=== PATIENT | female | born 1945 | race Caucasian/White ===

== ENCOUNTER 2018-03-03 23:53 | Observation (INO) | payer OTHER, SELFPAY ==
[2018-03-03 23:54] VITALS: BP 152/77; PULSE 91; RESP 17; TEMP 38.2; O2SAT 95; BMI 39.0
[2018-03-04] VITALS (8 sets, daily range): BP systolic 106–117; BP diastolic 39–60; PULSE 61–89; RESP 16–20; TEMP 37.3–39.2; O2SAT 94–98; BMI 35.3
--- NOTE | 2018-03-04 00:06 | EKG12_ITS ---
Test Reason : FALL Blood Pressure : / mmHG Vent. Rate : 085 BPM Atrial Rate : 085 BPM P-R Int : 166 ms QRS Dur : 098 ms QT Int : 348 ms P-R-T Axes : -09 095 037 degrees QTc Int : 414 ms Normal sinus rhythm Low voltage QRS Incomplete right bundle branch block Nonspecific T wave abnormality Abnormal ECG Confirmed by IESHA JEAN, YADIRA ([id number]), editor trade journal SUNNY DEE ([id number]) on 03/09/2018 1:44:40 PM Referred By: BABAR Confirmed By:YADIRA JULIAN MD
--- NOTE | 2018-03-04 00:06 | CT_ITS ---
STUDY: CT BRAIN WITHOUT CONTRAST REASON FOR EXAM: Female, 72 years old. Status post fall at home. RADIATION DOSAGE (If Supplied By Facility): CTDIvol = ( 44.99 ) mGy, DLP = ( 762.36 ) mGycm TECHNIQUE: Transaxial CT imaging of the brain was performed without administration of intravenous contrast material. Individualized dose optimization techniques were used for this CT. COMPARISON: 11/08/2013. FINDINGS: Normal soft tissue structures. Normal calvarium. Normal size ventricles and extra-axial spaces for the patient's age. Normal white matter tracts of the cerebral hemispheres. Normal basal ganglia and thalami. Normal brainstem. Normal cerebellum. There is no intracranial hemorrhage. There are no findings of an acute ischemic infarction. Normal visualized paranasal sinuses. CT/Brain/Head without Contrast IMPRESSION: Normal unenhanced CT scan of the brain. Electronically Signed: Sánchez Cazares MD at 1:34 EDT Tel , Service support ,
--- NOTE | 2018-03-04 00:07 | RAD_ITS ---
STUDY: X-RAY - LEFT KNEE REASON FOR EXAM: Female, 72 years old. History of fall. TECHNIQUE: For view(s) of the knee. COMPARISON: None. FINDINGS: There is fracture of the medial aspect of the medial femoral condyle. There is total left knee prosthesis. Normal visualized proximal tibia and fibula. Normal proximal tibiofibular articulation. There is moderate effusion in the suprapatellar joint space. The soft tissue structures are unremarkable. RAD/Knee 4 or More Views IMPRESSION: Fracture of the medial aspect of the medial femoral condyle. Moderate joint effusion. Electronically Signed: Sánchez Cazares MD at 1:41 EDT Tel , Service support ,
--- NOTE | 2018-03-04 00:07 | CT_ITS ---
STUDY: CT CERVICAL SPINE WITHOUT CONTRAST REASON FOR EXAM: Female, 72 years old. Status post fall. RADIATION DOSAGE (If Supplied By Facility): CTDIvol = ( 33.41 ) mGy, DLP = ( 801.74 ) mGycm TECHNIQUE: High resolution transaxial imaging was performed without contrast material. Sagittal and coronal images were reconstructed. Individualized dose optimization techniques were used for this CT. COMPARISON: None FINDINGS: Normal craniovertebral junction. There are degenerative changes of the anterior atlantoaxial articulation. Normal odontoid process. There is straightening of the normal cervical lordosis. There is no demonstrated acute compression fracture deformity. C2-3: Degenerative changes in the left apophyseal joint. No evidence of central spinal canal stenosis. The neural foramina appear to be within normal limits. C3-4: Degenerative changes in the apophyseal joints bilaterally. Posterior lateral degenerative spurs. Narrowing of the right neural foramina and to a lesser extent on the left side. C4-5: Narrowing of the disc space. Minimal anterolisthesis of C4 over C5. Mild narrowing of the neural foramina bilaterally. Borderline central spinal canal. C5-6: Posterior lateral degenerative spurs on the left side associated with narrowing of the left neural foramina. No evidence of central spinal canal stenosis. C6-7: No evidence of central spinal canal or neural foramina stenosis. C7-T1: Normal endplates. Normal disc height and morphology. Normal central canal and intervertebral neuroforamina. There is no prevertebral soft tissue swelling. CT/Spine Cervical without Contras IMPRESSION: Multilevel degenerative changes, as described above. Straight spine which could be due to muscle spasm. No demonstrated acute fracture or subluxation. If symptoms persist, MRI of the cervical spine is recommended. Electronically Signed: Sánchez Cazares MD at 1:33 EDT Tel , Service support ,
--- NOTE | 2018-03-04 00:07 | RAD_ITS ---
STUDY: X-RAY - RIGHT KNEE REASON FOR EXAM: Female, 72 years old. Fall. TECHNIQUE: 4 view(s) of the knee. COMPARISON: None. FINDINGS: There is irregularity of the medial aspect of the medial femoral condyle. Fracture is difficult to entirely exclude. Normal visualized proximal tibia and fibula. Normal proximal tibiofibular articulation. There is total right knee prosthesis. There is small effusion in the suprapatellar joint space. The soft tissue structures are unremarkable. RAD/Knee 4 or More Views IMPRESSION: Questionable nondisplaced fracture of the medial aspect of the medial femoral condyle. Small joint effusion. Electronically Signed: Sánchez Cazares MD at 1:43 EDT Tel , Service support ,
--- NOTE | 2018-03-04 00:07 | RAD_ITS ---
STUDY: X-RAY - LUMBAR SPINE REASON FOR EXAM: Female, 72 years old. Status post fall. TECHNIQUE: 3 view(s) of the lumbar spine were obtained. COMPARISON: None FINDINGS: There is an exaggerated lumbar lordosis. There is mild dextroscoliosis. There is grade 1 retrolisthesis of L3 over L4. There is multilevel endplate spondylosis of the lumbar vertebrae. There is severe disc space narrowing of L3-L4 with vacuum disc. There is no demonstrated fracture. There is no demonstrated spondylolysis of the pars interarticulares. There are bilateral hip prosthesis. RAD/Lumbar Spine 2 or 3 Views IMPRESSION: Degenerative changes of the spine, as detailed above. No demonstrated acute fracture. Electronically Signed: Sánchez Cazares MD at 1:52 EDT Tel , Service support ,
--- NOTE | 2018-03-04 00:07 | RAD_ITS ---
STUDY: X-RAY - THORACIC SPINE REASON FOR EXAM: Female, 72 years old. Status post fall. TECHNIQUE: 3 view(s) of the thoracic spine were obtained. COMPARISON: None. FINDINGS: Normal kyphosis of the thoracic spine. There is no substantial scoliosis. Normal thoracic vertebrae and endplates. The disc spaces are within normal limits. The soft tissue structures are unremarkable. RAD/Thoracic Spine 3 Views IMPRESSION: No demonstrated acute fracture. Electronically Signed: Sánchez Cazares MD at 1:52 EDT Tel , Service support ,
--- NOTE | 2018-03-04 00:08 | RAD_ITS ---
STUDY: X-RAY - PELVIS REASON FOR EXAM: Female, 72 years old. Status post fall. TECHNIQUE: One view of the pelvis was obtained. COMPARISON: 03/31/2013. FINDINGS: There is a non-specific bowel gas pattern. Normal visualized soft tissue structures. Normal bilateral iliac wings, sacroiliac joints and visualized sacrum. Normal visualized bilateral superior and inferior pubic rami. Normal pubic symphysis. Normal ischial tuberosities. There are bilateral hip prosthesis. RAD/Pelvis 1 or 2 Views IMPRESSION: Bilateral hip prosthesis. No demonstrated acute fracture. Electronically Signed: Sánchez Cazares MD at 1:56 EDT Tel , Service support ,
[2018-03-04] MEDS: Acetaminophen 500 MG Tablet 1000 MG PO (00:16)
[2018-03-04] MEDS: Ondansetron 4 MG/2 ML Vial IV (00:17)
[2018-03-04 00:24] LABS: Absolute Neutrophil Count 7.5 X10^3/uL (2.0-7.7); Basophil# 0.02 X10^3/uL; Basophil% 0.2 % (0-1); Hematocrit 37.3 % (37-47); Hemoglobin 12.6 g/dl (12.0-15.0); Lymphocyte % 8.6 % (19-41); Mean Corp Hgb Conc 33.8 g/gl (32-36); Mean Corpuscular Hgb 33.4 pg (27.0-32.0); Mean Corpuscular Volume 98.9 fL (81-99); Mean Platelet Vol. 9.6 fl (6.2-12.0); Monocyte% 10.7 % (0-10); Neutrophil # 7.49 X10^3/uL (2.7-7.7); Neutrophil % 80.3 % (47-70); POSITIVE COUNT NO; POSITIVE DIFFERENTIAL NO; POSITIVE MORPHOLOGY NO; Platelet Count 133 K/mm3 (150-450); RBC Distribution Width CV 12.9 % (11.6-14.6); RBC Distribution Width SD 45.1 fl (35.1-43.9); Red Blood Count 3.77 M/mm3 (4.2-5.4); White Blood Count 9.3 K/mm3 (4.4-11.0)
--- NOTE | 2018-03-04 00:27 | ED.VISSUMM ---
- ER Visit Summary Date of Service: 03/04/18 Chief Complaint: Fall, back pain History of Present Illness: The patient is a 72 F presenting after mechanical fall. Patient was in the bathroom and slipped on a wet floor and fell landing on her buttock. Her states that her knees were in an awkward position. She complains of back pain and bilateral knee pain. Patient also notes that she has not been feeling well today. She has had nausea, generalized weakness, urinary frequency. She has been urinating so frequently that she did not make it to the toilet in time and the bathroom floor was wet from urine. She believes she hit her head but did not lose consciousness. She is on aspirin, no other anticoagulants. She denies chest pain or shortness of breath. Denies abdominal pain. She has nausea with no vomiting. Physical Examination: Vitals are stable. Temperature 100.7. Alert no acute distress. HEENT exam dry mucous membranes Neck is mild diffuse tenderness, c-collar in place Lungs are clear and equal bilaterally. Heart is regular rate and rhythm. Abdomen is soft nontender nondistended. Extremities bilateral anterior knee tenderness, active full range of motion. NVID Skin is warm and dry. No focal neurologic deficit. Remainder of exam is unremarkable. Emergency Department Course and Treatment: Patient is given zofran, tylenol. EKG is sinus rate of 85, unchanged from previous. CBC is normal except for platelets 133. Chemistries show glucose 133, creatinine 1.09. Urinalysis shows 5-10 white cells, 4+ bacteria. Troponin is negative. Lactic acid is normal. Urine culture was sent. She was given Rocephin IV. CT head and neck show no acute process. Thoracic, lumbar spine x-rays show no acute process. Chest x-ray shows no acute process. Pelvis x-ray shows no acute process. Left knee x-ray shows fracture of the medial aspect of the medial femoral condyle. Moderate joint effusion. Right knee x-ray shows questionable nondisplaced fracture of the medial aspect of the medial femoral condyle. Small joint effusion. Discussed with Dr. Weeks. He recommends CT bilateral knee. CT Left knee shows Limited examination due to significant artifacts. Nondisplaced fracture of the medial aspect of the medial femoral condyle extending into the knee prosthesis. Lipohemarthrosis with small pocket of air within the joint space. CT Right knee shows Limited examination due to severe artifacts from total knee prosthesis. Nondisplaced chip fracture of the medial aspect of the distal femur. Discussed with Dr Weeks. Recommends admission to hospitalist, non-weight bearing, and he will see her in consultation. Discussed with the hospitalist for admission. Disposition: Admission Impression: UTI, mechanical fall, left medial femoral condyle fracture, right nondisplaced chip fracture medial distal femur This note was generated with [employer] dictation software. It may contain incorrect words, spelling, and punctuation that were not noted in review of the chart prior to signing ED Disposition - Plan for ED Patient: Chief Complaint: Fall Referrals: Kameron Huerta MD [Primary Care Provider] -
[2018-03-04 00:35] LABS: Mucous, Urine 0 SEEN /hpf (<or=2+); Squamous Epithelial Cells - UA 0 SEEN /hpf (5-10)
[2018-03-04 00:40] LABS: Anion Gap 7 (5-15); BUN 16 mg/dL (7-18); BUN/Creat Ratio 14.7 RATIO (10-20); Calcium,Total 11.7 mg/dL (8.5-10.1); Chloride 106 mmol/L (98-107); Creatinine, Serum 1.09 mg/dL (0.55-1.02); EST Glomerular Filtration Rate 52 mL/min (>60); Est Glom Filt Rate - Afr Amer 64 mL/min (>60); Estimated Creatinine Clearance 40.88 ml/min; Glucose 133 mg/dL (74-106); Potassium 3.8 mmol/L (3.5-5.1); Sodium Level 137 mmol/L (136-145)
[2018-03-04 00:42] LABS: Color, Urine Yellow (Yellow); Glucose, Dipstick Normal (Normal); Ketone-Dipstick 50 mg/dl (Negative); Leukocyte Esterase-Dipstick 500 /ul (Negative); Nitrite-Dipstick Positive (Negative); Occult Blood-Urine 25 /ul (Negative); Protein-Dipstick 30 mg/dl (Negative); Specific Gravity, Urine 1.015 (1.002-1.030); Urine Bilirubin Dipstick Negative (Negative); Urine Clarity Sl. Cloudy (Clear); Urine Urobilinogen Normal (Normal)
[2018-03-04 00:51] LABS: Bacteria 4+ /hpf (None Seen); Red Blood Cells-Urine 0-5 SEEN /hpf (0-5); White Blood Cells 5-10 SEEN /hpf (0-5)
--- NOTE | 2018-03-04 01:00 | RAD_ITS ---
STUDY: X-RAY CHEST REASON FOR EXAM: Female, 72 years old. Status post fall. Shortness of breath. TECHNIQUE: Single AP portable view of the chest. COMPARISON: 04/21/2016. FINDINGS: The lungs are clear and expanded. There is no demonstrated pleural abnormality. The heart is within normal limits in size. Normal mediastinum and katie. Normal visualized pulmonary arteries. Normal visualized aortic arch and descending thoracic aorta. Normal visualized thoracic spine. There are degenerative changes in the right shoulder. There is no demonstrated abnormality of the visualized soft tissue structures of the upper abdomen. RAD/Chest 1 View (Portable) IMPRESSION: No active pulmonary disease. Electronically Signed: Sánchez Cazares MD at 1:54 EDT Tel , Service support ,
[2018-03-04 01:01] LABS: Lactic Acid 0.9 mmol/L (0.4-2.0)
[2018-03-04] MEDS: Ceftriaxone 1 GM/50 ML BAG IV (02:00)
--- NOTE | 2018-03-04 02:05 | CT_ITS ---
STUDY: CT RIGHT KNEE WITHOUT CONTRAST REASON FOR EXAM: Female, 72 years old. Status post fall. RADIATION DOSAGE (If Supplied By Facility): CTDIvol = ( 16.43 ) mGy, DLP = ( 404.47 ) mGycm TECHNIQUE: Transaxial CT imaging of the knee was performed. Coronal and sagittal images were reformatted. COMPARISON: Correlation is made with the plain films of the right knee of March 04, 2018. FINDINGS: The examination is limited due to severe artifacts from total knee prosthesis. There is no demonstrated definite acute fracture. The distal femur however is somewhat obscured by artifacts. There is irregularity of the medial aspect of the medial femoral condyle. There is a nondisplaced fracture in this region best seen on axial images 32-34 series 3. Normal proximal tibiofibular articulation. There is questionable small joint effusion in the suprapatellar joint space. The quadriceps tendon is grossly normal. The patellar tendon is grossly normal. + The soft tissues are unremarkable. CT/Extremity Lower without Contra IMPRESSION: Limited examination due to severe artifacts from total knee prosthesis. Nondisplaced chip fracture of the medial aspect of the distal femur. Electronically Signed: Sánchez Cazares MD at 3:07 EDT Tel , Service support ,
--- NOTE | 2018-03-04 02:13 | CT_ITS ---
STUDY: CT LEFT KNEE WITHOUT CONTRAST REASON FOR EXAM: Female, 72 years old. Status post fall. RADIATION DOSAGE (If Supplied By Facility): CTDIvol = ( 16.67 ) mGy, DLP = ( 418.86 ) mGycm TECHNIQUE: Transaxial CT imaging of the knee was performed. Coronal and sagittal images were reformatted. COMPARISON: None. FINDINGS: The examination is markedly limited due to significant artifacts from total knee prosthesis and due to motion. There is however small comminuted fracture of the posterior aspect of the medial femoral condyle extending to the medial aspect of the knee prosthesis. Accurate evaluation of the fracture is difficult due to artifacts. The proximal tibia and fibula are otherwise appears to be intact. Normal proximal tibiofibular articulation. There is moderate to large lipohemarthrosis. There is small pocket of air within the joint space. The quadriceps and patellar tendons difficult to accurately evaluate. The soft tissues are unremarkable. CT/Extremity Lower without Contra IMPRESSION: Limited examination due to significant artifacts. Nondisplaced fracture of the medial aspect of the medial femoral condyle extending into the knee prosthesis. Lipohemarthrosis with small pocket of air within the joint space. Electronically Signed: Sánchez Cazares MD at 3:25 EDT Tel , Service support ,
--- NOTE | 2018-03-04 04:15 | PCM.HP.STD ---
Problem List (1) Mechanical fall Status: Acute (2) UTI (urinary tract infection) Status: Acute (3) Fracture of both knees Status: Acute History of Present Illness Date of Admission: 03/04/18 Chief Complaint: Slip and fall. The patient is a 72 year old F with multiple comorbidities as listed above including hypertension, rheumatoid arthritis, dyslipidemia was brought in by ambulance after she fell in the bathroom. She said she has been having increased frequency and urgency for last 2-3 days. Because her bathroom was what she slipped and fall on her buttocks and her both knees were twisted. She complained of back pain and bilateral knee pain. She denies vomiting, loss of consciousness, dizziness or headache full nauseated. EMS vitals were acceptable. In ED, EKG shows normal sinus rhythm at 85 bpm. She had multiple x-rays and CT scan done including CT head, CT C-spine, thoracic and lumbar spine, pelvis x-ray and chest x-ray does not show acute change. X-ray of left knee shows fracture of the medial aspect of medial femoral condyle with moderate joint effusion. Furthermore, she had CT of both knees and reported nondisplaced fracture of medial aspect of medial femoral condyle extending into the knee prosthesis. Right knee CT is reported as nondisplaced chip fracture of medial aspect of distal femur. She looks very dehydrated. Basic blood work in the ER is remarkable for platelet count 433,000. Creatinine 1.09. Calcium 11.7 and UA positive of pyuria, LE and nitrite. Past Medical History Past Medical History (Chronic Problems): Chronic Problems Nephrolithiasis (Chronic) Anxiety (Chronic) Hyperlipidemia (Chronic) Hypertension (Chronic) Rheumatoid arthritis (Chronic) Allergies Sulfa (Sulfonamide Antibiotics) Allergy (Verified 03/03/18 23:56) Other DOES NOT KNOW REACTION, HAPPENED WHEN 3 YRS OLD codeine Adverse Reaction (Verified 03/03/18 23:56) Nausea tramadol Adverse Reaction (Verified 03/03/18 23:56) Nausea Bee Stings Allergy (Uncoded 03/03/18 23:56) Anaphylaxis Home Medications: Ambulatory Orders Medication Instructions Recorded Atorvastatin Calcium [Lipitor] 10 mg PO DAILY 11/08/13 Folic Acid 2 mg PO DAILY 11/08/13 Losartan Potassium 50 mg PO DAILY 11/08/13 Prednisone 10 mg PO DAILY PRN 11/08/13 Adalimumab [Humira] 40 mg SQ Q14D 04/09/16 Escitalopram Oxalate [Lexapro] 20 mg PO DAILY 03/09/17 Meloxicam [Mobic] 7.5 mg PO DAILY 03/09/17 [place]-3S/Dha/Epa/Fish Oil [Fish 1 each PO DAILY 03/09/17 Oil 1,200 mg Softgel] Acetaminophen [Tylenol] 1,000 mg PO Q8 PRN 03/04/18 Aspirin [Aspirin, Baby] 81 mg PO DAILY@0800 03/04/18 Hydrocodone Bitart/Apap 5-325 1 tablet PO BID 03/04/18 [[place] 5MG-325MG] Surgical History: - - Tonsillectomy, right total knee replacement,bone removed from.left hip. Smoking Status: Never smoker - *Family History Maternal History Items: - - mother with lung cancer. Review of Systems Constitutional: Denies: Chills, Fever, Weight Change HEENT: Denies: Head Aches, Sinus Congestion, Sinus Drainage Cardiovascular: Denies: Chest Pain, Palpitations Respiratory: Denies: Cough, Shortness of breath at rest, Sputum production Gastrointestinal: Denies: Abdominal Pain, Nausea, Vomiting Genitourinary: Reports: Dysuria, Frequency, Incontinence, Urgency Musculoskeletal: Reports: Joint Pain, Joint stiffness, Joint Tenderness, Muscle pain Skin: Denies: Rash, Wounds Neurological: Denies: Numbness, Tingling, Focal weakness Psychiatric: Denies: Anxiety, Depression, Homicidal Ideations, Suicidal Ideations Hematologic/ Lymphatic: Denies: Easy Bruising, Easy Bleeding VTE Information - Inpt Only VTE Present on Admission: No VTE Mechan Device Prophylaxis: SCD's VTE Pharm Prophylaxis ordered?: Yes Patient Problems: Active and Suspected Problems Mechanical fall (Acute) UTI (urinary tract infection) (Acute) Fracture of both knees (Acute) - Physical Exam General: Alert, Oriented x3, Cooperative HEENT: Atraumatic, PERRLA, EOMI, Normocephalic Oral: Ulcerations Present Neck: Supple, No JVD, Negative Carotid Bruits Lungs: Clear to auscultation, Normal air movement Cardiovascular: Regular rate, Regular Rhythm, Normal S1, Normal S2, No murmurs Abdomen: Bowel Sounds Present, Soft, Non Tender, Non-Distended Extremities: Capillary Refill Less than 3 Seconds, Edema Skin: No rashes, No breakdown Musculoskeletal: Arthritic Changes, Tenderness - Tenderness present over both knees, predominantly over the medial aspect of left femoral condyle Neurological: Cranial nerves II-XII grossly intact Psych/Mental Status: Normal Affect, Appropriate Vital Signs Temp Pulse Resp BP Pulse Ox 100.7 F H 73 20 H 117/53 L 94 03/03/18 23:54 03/04/18 02:10 03/04/18 02:10 03/04/18 02:10 03/04/18 02:10 Oxygen Delivery Method Room Air Weight: 227 lb 8.273 oz Body Mass Index (BMI) 39.0 Finger Stick Blood Glucose 119 Laboratory Tests Past 24 Hrs 03/03/18 03/04/18 03/04/18 21:41 00:12 00:12 WBC 9.3 RBC 3.77 L Hgb 12.6 Hct 37.3 MCV 98.9 MCH 33.4 H MCHC 33.8 RDW 12.9 RDW Differential 45.1 H Plt Count 133 L MPV 9.6 Immature Gran % (Auto) 0.200 Neut % (Auto) 80.3 H Lymph % (Auto) 8.6 L [place] % (Auto) 10.7 H Eos % (Auto) 0.0 Baso % (Auto) 0.2 Absolute Neuts (auto) 7.5 Absolute Lymphs (auto) 0.80 L Total Counted Not Reportable Sodium 137 Potassium 3.8 Chloride 106 Carbon Dioxide 24.0 Anion Gap 7 BUN 16 Creatinine 1.09 H Estim Creat Clear Calc 40.88 Est GFR (MDRD) Af Amer 64 Est GFR (MDRD) Non-Af 52 L BUN/Creatinine Ratio 14.7 Glucose 133 H Lactic Acid 0.9 Calcium 11.7 H Troponin I < 0.015 Urine Color Urine Clarity Urine pH Ur Specific [place] Urine Protein Urine Glucose (UA) Urine Ketones Urine Occult Blood Urine Nitrite Urine Bilirubin Urine Urobilinogen Ur Leukocyte Esterase Urine RBC Urine WBC Ur Squamous Epith Cells Urine Bacteria Urine Mucus 03/04/18 00:30 WBC RBC Hgb Hct MCV MCH MCHC RDW RDW Differential Plt Count MPV Immature Gran % (Auto) Neut % (Auto) Lymph % (Auto) [place] % (Auto) Eos % (Auto) Baso % (Auto) Absolute Neuts (auto) Absolute Lymphs (auto) Total Counted Sodium Potassium Chloride Carbon Dioxide Anion Gap BUN Creatinine Estim Creat Clear Calc Est GFR (MDRD) Af Amer Est GFR (MDRD) Non-Af BUN/Creatinine Ratio Glucose Lactic Acid Calcium Troponin I Urine Color Yellow Urine Clarity Sl. Cloudy Urine pH 7.0 Ur Specific [place] 1.015 Urine Protein 30 H Urine Glucose (UA) Normal Urine Ketones 50 H Urine Occult Blood 25 H Urine Nitrite Positive H Urine Bilirubin Negative Urine Urobilinogen Normal Ur Leukocyte Esterase 500 H Urine RBC 0-5 SEEN Urine WBC 5-10 SEEN Ur Squamous Epith Cells 0 SEEN Urine Bacteria 4+ Urine Mucus 0 SEEN Assessment/Plan Active and Suspected Problems Mechanical fall (Acute) UTI (urinary tract infection) (Acute) Fracture of both knees (Acute) The patient is a 72 year old F with multiple comorbidities as listed above including hypertension, rheumatoid arthritis, dyslipidemia was brought in by ambulance after she fell in the bathroom. She said she has been having increased frequency and urgency for last 2-3 days. Because her bathroom was what she slipped and fall on her buttocks and her both knees were twisted. She complained of back pain and bilateral knee pain. She denies vomiting, loss of consciousness, dizziness or headache full nauseated. EMS vitals were acceptable. In ED, EKG shows normal sinus rhythm at 85 bpm. She had multiple x-rays and CT scan done including CT head, CT C-spine, thoracic and lumbar spine, pelvis x-ray and chest x-ray does not show acute change. X-ray of left knee shows fracture of the medial aspect of medial femoral condyle with moderate joint effusion. Furthermore, she had CT of both knees and reported nondisplaced fracture of medial aspect of medial femoral condyle extending into the knee prosthesis. Right knee CT is reported as nondisplaced chip fracture of medial aspect of distal femur. She looks very dehydrated. Basic blood work in the ER is remarkable for platelet count 433,000. Creatinine 1.09. Calcium 11.7 and UA positive of pyuria, LE and nitrite. 1. Mechanical, complicated pathological fracture of both knees with osteoporosis and rheumatoid arthritis status post bilateral TKR: The patient is being admitted on a regular [facility] floor. CT scan of left knee is reported as nondisplaced fracture of the medial aspect of the medial femoral condyle extending into the knee prosthesis. Reported as CT scan of right knee nondisplaced chip fracture of the medial aspect of the distal femur. The patient also has bilateral knee replacement and bilateral hip prosthesis. Orthopedic surgeon is consulted. Pain control. Muscle relaxant. PT and OT ordered. 2. UTI: Patient is started on IV ceftriaxone. Follow urine culture. 3. Slip and fall with resulting fracture as mentioned above 4. CKD stage III with estimated GFR about 50 mL/min. Currently patient is dehydrated. IV fluid normal saline ordered. 5. Other comorbidities include anemia of chronic disease, nephrolithiasis, hypertension, dyslipidemia, anxiety and rheumatoid arthritis: Blood pressure is controlled. Home medication reconciliation done. Laboratory Results 03/03/18 21:41: Lactic Acid 0.9 03/04/18 00:12: WBC 9.3, RBC 3.77 L, Hgb 12.6, Hct 37.3, MCV 98.9, MCH 33.4 H, MCHC 33.8, RDW 12.9, RDW Differential 45.1 H, Plt Count 133 L, MPV 9.6, Immature Gran % (Auto) 0.200, Neut % (Auto) 80.3 H, Lymph % (Auto) 8.6 L, [place] % (Auto) 10.7 H, Eos % (Auto) 0.0, Baso % (Auto) 0.2, Absolute Neuts (auto) 7.5, Absolute Lymphs (auto) 0.80 L, Total Counted Not Reportable 03/04/18 00:12: Sodium 137, Potassium 3.8, Chloride 106, Carbon Dioxide 24.0, Anion Gap 7, BUN 16, Creatinine 1.09 H, Estim Creat Clear Calc 40.88, Est GFR (MDRD) Af Amer 64, Est GFR (MDRD) Non-Af 52 L, BUN/Creatinine Ratio 14.7, Glucose 133 H, Calcium 11.7 H, Troponin I < 0.015 03/04/18 00:30: Urine Color Yellow, Urine Clarity Sl. Cloudy, Urine pH 7.0, Ur Specific [place] 1.015, Urine Protein 30 H, Urine Glucose (UA) Normal, Urine Ketones 50 H, Urine Occult Blood 25 H, Urine Nitrite Positive H, Urine Bilirubin Negative, Urine Urobilinogen Normal, Ur Leukocyte Esterase 500 H, Urine RBC 0-5 SEEN, Urine WBC 5-10 SEEN, Ur Squamous Epith Cells 0 SEEN, Urine Bacteria 4+, Urine Mucus 0 SEEN Clinical Impression(s) from Imaging Studies Brain CT 03/04/18 00:06 IMPRESSION: Normal unenhanced CT scan of the brain. Electronically Signed: Sánchez Cazares MD at 1:34 EDT Tel , Service support , Cervical Spine CT 03/04/18 00:07 IMPRESSION: Multilevel degenerative changes, as described above. Straight spine which could be due to muscle spasm. No demonstrated acute fracture or subluxation. If symptoms persist, MRI of the cervical spine is recommended. Electronically Signed: Sánchez Cazares MD at 1:33 EDT Tel , Service support , Knee X-Ray 03/04/18 00:07 IMPRESSION: Questionable nondisplaced fracture of the medial aspect of the medial femoral condyle. Small joint effusion. Electronically Signed: Sánchez Cazares MD at 1:43 EDT Tel , Service support , Knee X-Ray 03/04/18 00:07 IMPRESSION: Fracture of the medial aspect of the medial femoral condyle. Moderate joint effusion. Electronically Signed: Sánchez Cazares MD at 1:41 EDT Tel , Service support , Lumbar Spine X-Ray 03/04/18 00:07 IMPRESSION: Degenerative changes of the spine, as detailed above. No demonstrated acute fracture. Electronically Signed: Sánchez Cazares MD at 1:52 EDT Tel , Service support , Thoracic Spine X-Ray 03/04/18 00:07 IMPRESSION: No demonstrated acute fracture. Electronically Signed: Sánchez Cazares MD at 1:52 EDT Tel , Service support , Pelvis X-Ray 03/04/18 00:08 IMPRESSION: Bilateral hip prosthesis. No demonstrated acute fracture. Electronically Signed: Sánchez Cazares MD at 1:56 EDT Tel , Service support , Chest X-Ray 03/04/18 01:00 IMPRESSION: No active pulmonary disease. Electronically Signed: Sánchez Cazares MD at 1:54 EDT Tel , Service support , Lower Extremity CT 03/04/18 02:05 IMPRESSION: Limited examination due to severe artifacts from total knee prosthesis. Nondisplaced chip fracture of the medial aspect of the distal femur. Electronically Signed: Sánchez Cazares MD at 3:07 EDT Tel , Service support , Lower Extremity CT 03/04/18 02:13 IMPRESSION: Limited examination due to significant artifacts. Nondisplaced fracture of the medial aspect of the medial femoral condyle extending into the knee prosthesis. Lipohemarthrosis with small pocket of air within the joint space. Electronically Signed: Sánchez Cazares MD at 3:25 EDT Tel , Service support , Code Visit Inpatient E&M: [id number] Init Hosp L3
--- NOTE | 2018-03-04 04:25 | HP.PCM_ITS ---
Problem List (1) Mechanical fall Status: Acute (2) UTI (urinary tract infection) Status: Acute (3) Fracture of both knees Status: Acute History of Present Illness Date of Admission: 03/04/18 Chief Complaint: Slip and fall. The patient is a 72 year old F with multiple comorbidities as listed above including hypertension, rheumatoid arthritis, dyslipidemia was brought in by ambulance after she fell in the bathroom. She said she has been having increased frequency and urgency for last 2-3 days. Because her bathroom was what she slipped and fall on her buttocks and her both knees were twisted. She complained of back pain and bilateral knee pain. She denies vomiting, loss of consciousness, dizziness or headache full nauseated. EMS vitals were acceptable. In ED, EKG shows normal sinus rhythm at 85 bpm. She had multiple x-rays and CT scan done including CT head, CT C-spine, thoracic and lumbar spine, pelvis x- ray and chest x-ray does not show acute change. X-ray of left knee shows fracture of the medial aspect of medial femoral condyle with moderate joint effusion. Furthermore, she had CT of both knees and reported nondisplaced fracture of medial aspect of medial femoral condyle extending into the knee prosthesis. Right knee CT is reported as nondisplaced chip fracture of medial aspect of distal femur. She looks very dehydrated. Basic blood work in the ER is remarkable for platelet count 433,000. Creatinine 1.09. Calcium 11.7 and UA positive of pyuria, LE and nitrite. Past Medical History Past Medical History (Chronic Problems): Chronic Problems Nephrolithiasis (Chronic) Anxiety (Chronic) Hyperlipidemia (Chronic) Hypertension (Chronic) Rheumatoid arthritis (Chronic) Allergies Sulfa (Sulfonamide Antibiotics) Allergy (Verified 03/03/18 23:56) Other DOES NOT KNOW REACTION, HAPPENED WHEN 3 YRS OLD codeine Adverse Reaction (Verified 03/03/18 23:56) Nausea tramadol Adverse Reaction (Verified 03/03/18 23:56) Nausea Bee Stings Allergy (Uncoded 03/03/18 23:56) Anaphylaxis Home Medications: Ambulatory Orders Medication Instructions Recorded Atorvastatin Calcium [Lipitor] 10 mg PO DAILY 11/08/13 Folic Acid 2 mg PO DAILY 11/08/13 Losartan Potassium 50 mg PO DAILY 11/08/13 Prednisone 10 mg PO DAILY PRN 11/08/13 Adalimumab [Humira] 40 mg SQ Q14D 04/09/16 Escitalopram Oxalate [Lexapro] 20 mg PO DAILY 03/09/17 Meloxicam [Mobic] 7.5 mg PO DAILY 03/09/17 [place]-3S/Dha/Epa/Fish Oil [Fish 1 each PO DAILY 03/09/17 Oil 1,200 mg Softgel] Acetaminophen [Tylenol] 1,000 mg PO Q8 PRN 03/04/18 Aspirin [Aspirin, Baby] 81 mg PO DAILY@0800 03/04/18 Hydrocodone Bitart/Apap 5-325 1 tablet PO BID 03/04/18 [[place] 5MG-325MG] Surgical History: - - Tonsillectomy, right total knee replacement,bone removed from.left hip. Smoking Status: Never smoker - *Family History Maternal History Items: - - mother with lung cancer. Review of Systems Constitutional: Denies: Chills, Fever, Weight Change HEENT: Denies: Head Aches, Sinus Congestion, Sinus Drainage Cardiovascular: Denies: Chest Pain, Palpitations Respiratory: Denies: Cough, Shortness of breath at rest, Sputum production Gastrointestinal: Denies: Abdominal Pain, Nausea, Vomiting Genitourinary: Reports: Dysuria, Frequency, Incontinence, Urgency Musculoskeletal: Reports: Joint Pain, Joint stiffness, Joint Tenderness, Muscle pain Skin: Denies: Rash, Wounds Neurological: Denies: Numbness, Tingling, Focal weakness Psychiatric: Denies: Anxiety, Depression, Homicidal Ideations, Suicidal Ideations Hematologic/ Lymphatic: Denies: Easy Bruising, Easy Bleeding VTE Information - Inpt Only VTE Present on Admission: No VTE Mechan Device Prophylaxis: SCD's VTE Pharm Prophylaxis ordered?: Yes Patient Problems: Active and Suspected Problems Mechanical fall (Acute) UTI (urinary tract infection) (Acute) Fracture of both knees (Acute) - Physical Exam General: Alert, Oriented x3, Cooperative HEENT: Atraumatic, PERRLA, EOMI, Normocephalic Oral: Ulcerations Present Neck: Supple, No JVD, Negative Carotid Bruits Lungs: Clear to auscultation, Normal air movement Cardiovascular: Regular rate, Regular Rhythm, Normal S1, Normal S2, No murmurs Abdomen: Bowel Sounds Present, Soft, Non Tender, Non-Distended Extremities: Capillary Refill Less than 3 Seconds, Edema Skin: No rashes, No breakdown Musculoskeletal: Arthritic Changes, Tenderness - Tenderness present over both knees, predominantly over the medial aspect of left femoral condyle Neurological: Cranial nerves II-XII grossly intact Psych/Mental Status: Normal Affect, Appropriate Vital Signs Temp Pulse Resp BP Pulse Ox 100.7 F H 73 20 H 117/53 L 94 03/03/18 23:54 03/04/18 02:10 03/04/18 02:10 03/04/18 02:10 03/04/18 02:10 Oxygen Delivery Method Room Air Weight: 227 lb 8.273 oz Body Mass Index (BMI) 39.0 Finger Stick Blood Glucose 119 Laboratory Tests Past 24 Hrs 03/03/18 03/04/18 03/04/18 21:41 00:12 00:12 WBC 9.3 RBC 3.77 L Hgb 12.6 Hct 37.3 MCV 98.9 MCH 33.4 H MCHC 33.8 RDW 12.9 RDW Differential 45.1 H Plt Count 133 L MPV 9.6 Immature Gran % (Auto) 0.200 Neut % (Auto) 80.3 H Lymph % (Auto) 8.6 L [place] % (Auto) 10.7 H Eos % (Auto) 0.0 Baso % (Auto) 0.2 Absolute Neuts (auto) 7.5 Absolute Lymphs (auto) 0.80 L Total Counted Not Reportable Sodium 137 Potassium 3.8 Chloride 106 Carbon Dioxide 24.0 Anion Gap 7 BUN 16 Creatinine 1.09 H Estim Creat Clear Calc 40.88 Est GFR (MDRD) Af Amer 64 Est GFR (MDRD) Non-Af 52 L BUN/Creatinine Ratio 14.7 Glucose 133 H Lactic Acid 0.9 Calcium 11.7 H Troponin I < 0.015 Urine Color Urine Clarity Urine pH Ur Specific [place] Urine Protein Urine Glucose (UA) Urine Ketones Urine Occult Blood Urine Nitrite Urine Bilirubin Urine Urobilinogen Ur Leukocyte Esterase Urine RBC Urine WBC Ur Squamous Epith Cells Urine Bacteria Urine Mucus 03/04/18 00:30 WBC RBC Hgb Hct MCV MCH MCHC RDW RDW Differential Plt Count MPV Immature Gran % (Auto) Neut % (Auto) Lymph % (Auto) [place] % (Auto) Eos % (Auto) Baso % (Auto) Absolute Neuts (auto) Absolute Lymphs (auto) Total Counted Sodium Potassium Chloride Carbon Dioxide Anion Gap BUN Creatinine Estim Creat Clear Calc Est GFR (MDRD) Af Amer Est GFR (MDRD) Non-Af BUN/Creatinine Ratio Glucose Lactic Acid Calcium Troponin I Urine Color Yellow Urine Clarity Sl. Cloudy Urine pH 7.0 Ur Specific [place] 1.015 Urine Protein 30 H Urine Glucose (UA) Normal Urine Ketones 50 H Urine Occult Blood 25 H Urine Nitrite Positive H Urine Bilirubin Negative Urine Urobilinogen Normal Ur Leukocyte Esterase 500 H Urine RBC 0-5 SEEN Urine WBC 5-10 SEEN Ur Squamous Epith Cells 0 SEEN Urine Bacteria 4+ Urine Mucus 0 SEEN Assessment/Plan Active and Suspected Problems Mechanical fall (Acute) UTI (urinary tract infection) (Acute) Fracture of both knees (Acute) The patient is a 72 year old F with multiple comorbidities as listed above including hypertension, rheumatoid arthritis, dyslipidemia was brought in by ambulance after she fell in the bathroom. She said she has been having increased frequency and urgency for last 2-3 days. Because her bathroom was what she slipped and fall on her buttocks and her both knees were twisted. She complained of back pain and bilateral knee pain. She denies vomiting, loss of consciousness, dizziness or headache full nauseated. EMS vitals were acceptable. In ED, EKG shows normal sinus rhythm at 85 bpm. She had multiple x-rays and CT scan done including CT head, CT C-spine, thoracic and lumbar spine, pelvis x- ray and chest x-ray does not show acute change. X-ray of left knee shows fracture of the medial aspect of medial femoral condyle with moderate joint effusion. Furthermore, she had CT of both knees and reported nondisplaced fracture of medial aspect of medial femoral condyle extending into the knee prosthesis. Right knee CT is reported as nondisplaced chip fracture of medial aspect of distal femur. She looks very dehydrated. Basic blood work in the ER is remarkable for platelet count 433,000. Creatinine 1.09. Calcium 11.7 and UA positive of pyuria, LE and nitrite. 1. Mechanical, complicated pathological fracture of both knees with osteoporosis and rheumatoid arthritis status post bilateral TKR: The patient is being admitted on a regular MedSur floor. CT scan of left knee is reported as nondisplaced fracture of the medial aspect of the medial femoral condyle extending into the knee prosthesis. Reported as CT scan of right knee nondisplaced chip fracture of the medial aspect of the distal femur. The patient also has bilateral knee replacement and bilateral hip prosthesis. Orthopedic surgeon is consulted. Pain control. Muscle relaxant. PT and OT ordered. 2. UTI: Patient is started on IV ceftriaxone. Follow urine culture. 3. Slip and fall with resulting fracture as mentioned above 4. CKD stage III with estimated GFR about 50 mL/min. Currently patient is dehydrated. IV fluid normal saline ordered. 5. Other comorbidities include anemia of chronic disease, nephrolithiasis, hypertension, dyslipidemia, anxiety and rheumatoid arthritis: Blood pressure is controlled. Home medication reconciliation done. Laboratory Results 03/03/18 21:41: Lactic Acid 0.9 03/04/18 00:12: WBC 9.3, RBC 3.77 L, Hgb 12.6, Hct 37.3, MCV 98.9, MCH 33.4 H, MCHC 33.8, RDW 12.9, RDW Differential 45.1 H, Plt Count 133 L, MPV 9.6, Immature Gran % (Auto) 0.200, Neut % (Auto) 80.3 H, Lymph % (Auto) 8.6 L, [place] % (Auto) 10.7 H, Eos % (Auto) 0.0, Baso % (Auto) 0.2, Absolute Neuts (auto) 7.5 , Absolute Lymphs (auto) 0.80 L, Total Counted Not Reportable 03/04/18 00:12: Sodium 137, Potassium 3.8, Chloride 106, Carbon Dioxide 24.0, Anion Gap 7, BUN 16, Creatinine 1.09 H, Estim Creat Clear Calc 40.88, Est GFR ( MDRD) Af Amer 64, Est GFR (MDRD) Non-Af 52 L, BUN/Creatinine Ratio 14.7, Glucose 133 H, Calcium 11.7 H, Troponin I < 0.015 03/04/18 00:30: Urine Color Yellow, Urine Clarity Sl. Cloudy, Urine pH 7.0, Ur Specific [place] 1.015, Urine Protein 30 H, Urine Glucose (UA) Normal, Urine Ketones 50 H, Urine Occult Blood 25 H, Urine Nitrite Positive H, Urine Bilirubin Negative, Urine Urobilinogen Normal, Ur Leukocyte Esterase 500 H, Urine RBC 0-5 SEEN, Urine WBC 5-10 SEEN, Ur Squamous Epith Cells 0 SEEN, Urine Bacteria 4+, Urine Mucus 0 SEEN Clinical Impression(s) from Imaging Studies Brain CT 03/04/18 00:06 IMPRESSION: Normal unenhanced CT scan of the brain. Electronically Signed: Sánchez Cazares MD at 1:34 EDT Tel , Service support , Cervical Spine CT 03/04/18 00:07 IMPRESSION: Multilevel degenerative changes, as described above. Straight spine which could be due to muscle spasm. No demonstrated acute fracture or subluxation. If symptoms persist, MRI of the cervical spine is recommended. Electronically Signed: Sánchez Cazares MD at 1:33 EDT Tel , Service support , Knee X-Ray 03/04/18 00:07 IMPRESSION: Questionable nondisplaced fracture of the medial aspect of the medial femoral condyle. Small joint effusion. Electronically Signed: Sánchez Cazares MD at 1:43 EDT Tel , Service support , Knee X-Ray 03/04/18 00:07 IMPRESSION: Fracture of the medial aspect of the medial femoral condyle. Moderate joint effusion. Electronically Signed: Sánchez Cazares MD at 1:41 EDT Tel , Service support , Lumbar Spine X-Ray 03/04/18 00:07 IMPRESSION: Degenerative changes of the spine, as detailed above. No demonstrated acute fracture. Electronically Signed: Sánchez Cazares MD at 1:52 EDT Tel , Service support , Thoracic Spine X-Ray 03/04/18 00:07 IMPRESSION: No demonstrated acute fracture. Electronically Signed: Sánchez Cazares MD at 1:52 EDT Tel , Service support , Pelvis X-Ray 03/04/18 00:08 IMPRESSION: Bilateral hip prosthesis. No demonstrated acute fracture. Electronically Signed: Sánchez Cazares MD at 1:56 EDT Tel , Service support , Chest X-Ray 03/04/18 01:00 IMPRESSION: No active pulmonary disease. Electronically Signed: Sánchez Cazares MD at 1:54 EDT Tel , Service support , Lower Extremity CT 03/04/18 02:05 IMPRESSION: Limited examination due to severe artifacts from total knee prosthesis. Nondisplaced chip fracture of the medial aspect of the distal femur. Electronically Signed: Sánchez Cazares MD at 3:07 EDT Tel , Service support , Lower Extremity CT 03/04/18 02:13 IMPRESSION: Limited examination due to significant artifacts. Nondisplaced fracture of the medial aspect of the medial femoral condyle extending into the knee prosthesis. Lipohemarthrosis with small pocket of air within the joint space. Electronically Signed: Sánchez Cazares MD at 3:25 EDT Tel , Service support , Code Visit Inpatient E&M: 40586 Init Hosp L3
[2018-03-04] MEDS: Acetaminophen 325 MG Tablet 650 MG PO (07:27)
[2018-03-04] MEDS: Aspirin 81 MG TAB.CHEW PO (07:31)
[2018-03-04] MEDS: Folic Acid 1 MG Tablet 2 MG PO (07:32)
[2018-03-04] MEDS: 0.9% Normal Saline 1,000 ML 100 ML IV (07:42)
[2018-03-04 09:12] LABS: Hemoglobin A1c 5.6 % (4.2-6.3)
[2018-03-04] MEDS: Famotidine 20 MG Tablet PO (09:58)
[2018-03-04] MEDS: Heparin Injection (Vial) 5,000 UNIT/ML VIAL 5000 UNIT SC (09:58)
[2018-03-04] MEDS: Escitalopram Oxalate 20 MG Tablet PO (09:58)
[2018-03-04] MEDS: Losartan Potassium 50 MG Tablet PO (09:58)
--- NOTE | 2018-03-04 11:11 | CASEMGMT ---
Addendum entered by Florencia Farfan 03/04/18 11:40: Pt had PT/OT, they agree that placement would be appropriate for pt. SW spoke w/pt again, gave pt list of SNF's that take her insurance. Pt would like to go to TCU, SW called, TCU has a bed and will start precert. SW let pt know, and explained will let her know as soon as this SW knows if we get precert for TCU. Pt states understanding. SW will continue to follow. DIANA Gee, BLOOD BANK CALENDAR CONTROL CLERK Original Note: See assessment. SW spoke w/pt in room in regard to discharge plan. After prior surgeries, pt has been able to return home. However, pt states her is tentative with her returning home and may want pt to go somewhere for rehab. Pt has not had PT/OT yet, and an ortho consult is still pending. SW explained will look up on her insurance website to see what SNF's are in network and let her know. SW did look up the information, went back to speak w/pt however she is now sleeping. SW will check back w/pt a little later. PT/OT may be going in shortly to see pt. DIANA Gee, BLOOD BANK CALENDAR CONTROL CLERK
[2018-03-04] MEDS: oxyCODONE 5 MG Tablet PO (12:39)
--- NOTE | 2018-03-04 13:31 | PCM.CONS.GEN ---
Reason for Consult Date of Consultation: 03/04/18 Reason for Consultation: Bilateral knee pain after fall. Requested by History of Present Illness: The patient is a 72 year old F with history of multiple medical comorbidities. Patient has bilateral hip replacements and bilateral knee replacements. She fell in the bathroom yesterday and into the hospital with bilateral knee pain and back pain. Currently she reports no back pain. She is somewhat sleepy during our encounter. She reports bilateral medial knee pain. Worse with weightbearing better with immobilization and pain medications. Patient states is 8 out of 10 with weightbearing. It is a dull achy pain on the inside of her knee. She has associated ecchymosis. No associated numbness or tingling. No fevers chills or night sweats. She has been diagnosed with a UTI and is being treated accordingly. Plan is for her to be discharged to a residential facility/TCU here at the hospital Past Medical History Past Medical History (Chronic Problems): Chronic Problems Nephrolithiasis (Chronic) Anxiety (Chronic) Hyperlipidemia (Chronic) Hypertension (Chronic) Rheumatoid arthritis (Chronic) Allergies Sulfa (Sulfonamide Antibiotics) Allergy (Verified 03/03/18 23:56) Other DOES NOT KNOW REACTION, HAPPENED WHEN 3 YRS OLD codeine Adverse Reaction (Verified 03/03/18 23:56) Nausea tramadol Adverse Reaction (Verified 03/03/18 23:56) Nausea Bee Stings Allergy (Uncoded 03/03/18 23:56) Anaphylaxis Home Medications: Ambulatory Orders Medication Instructions Recorded Atorvastatin Calcium [Lipitor] 10 mg PO QHS 11/08/13 Folic Acid 2 mg PO SUMOTUWETHSA 11/08/13 Losartan Potassium 50 mg PO DAILY 11/08/13 Prednisone 10 mg PO DAILY PRN 11/08/13 Adalimumab [Humira] 40 mg SQ Q14D 04/09/16 Escitalopram Oxalate [Lexapro] 20 mg PO DAILY 03/09/17 Meloxicam [Mobic] 7.5 mg PO DAILY 03/09/17 [place]-3S/Dha/Epa/Fish Oil [Fish 1 each PO DAILY 03/09/17 Oil 1,200 mg Softgel] Acetaminophen [Tylenol] 1,000 mg PO Q8 PRN 03/04/18 Aspirin [Aspirin, Baby] 81 mg PO DAILY@0800 03/04/18 Hydrocodone Bitart/Apap 5-325 1 tablet PO DAILY 03/04/18 [[place] 5MG-325MG] Hydrocodone/Acetaminophen 0.5 tab PO QHS 03/04/18 [Hydrocodon-Acetaminophen 5-325] Methotrexate 03/04/18 Surgical History: - - Tonsillectomy, right total knee replacement,bone removed from.left hip. Psychiatric History: No pertinent psych hx Lives: Spouse/ Significant Other Smoking Status: Never smoker Tobacco Use: Non-smoker Alcohol: None Drugs: None - *Family History Maternal History Items: - - mother with lung cancer. Review of Systems Constitutional: Denies: Chills, Fever, Weight Change HEENT: Denies: Head Aches, Sinus Congestion, Sinus Drainage Cardiovascular: Denies: Chest Pain, Palpitations Respiratory: Denies: Cough, Shortness of breath at rest, Sputum production Gastrointestinal: Denies: Abdominal Pain, Nausea, Vomiting Genitourinary: Reports: Dysuria Musculoskeletal: Reports: Joint Pain, Joint Tenderness Skin: Denies: Rash, Wounds Neurological: Denies: Numbness, Tingling, Focal weakness Psychiatric: Denies: Anxiety, Depression, Homicidal Ideations, Suicidal Ideations Hematologic/ Lymphatic: Denies: Easy Bruising, Easy Bleeding Patient Problems: Active and Suspected Problems Mechanical fall (Acute) UTI (urinary tract infection) (Acute) Fracture of both knees (Acute) Objective: Bilateral knee x-rays do show bilateral medial epicondyle avulsion fractures. CT scans are consistent with this with a more severe epicondyle fracture on the left. It does extend somewhat into the prosthesis however the remainder the prosthesis appears stable. Will component on the right appears stable. Bilateral tibial components appear stable. X-rays of the thoracic and lumbar spine were reviewed showing no acute fractures there is degenerative disease of the lumbar spine. CT scan of the cervical spine shows no acute fractures some loss of normal cervical lordosis and cervical arthrosis is noted. - Physical Exam General: Alert, Oriented x3, Cooperative Extremities: - - Bilateral knees: Swelling and ecchymosis medially on bilateral knees. Tenderness palpation over both medial epicondyles. Patient has 2 mm laxity laterally on varus valgus stress testing and 4 mm laxity medially. Consistent with medial laxity. Patient has no pain with short arc range of motion. Patient is not very cooperative with range of motion examination. Extensor mechanism intact. neuroVascularly intact distally. Vital Signs Temp Pulse Resp BP Pulse Ox 99.2 F H 77 16 116/48 L 97 03/04/18 12:50 03/04/18 10:00 03/04/18 10:00 03/04/18 10:00 03/04/18 10:00 Oxygen Delivery Method Room Air Weight: 205 lb 14.588 oz Body Mass Index (BMI) 35.3 Intake and Output for Last 24 Hours 03/02/18 03/03/18 03/04/18 23:59 23:59 23:59 Intake Total 2019 Output Total 1220 / 1220 Balance 800 / 800 Assessment/Plan Active and Suspected Problems Mechanical fall (Acute) UTI (urinary tract infection) (Acute) Fracture of both knees (Acute) Bilateral medial epicondyle fracture status post fall. Implants appear stable in both knees. I did discuss the patient is a possibility with long-term follow-up we may find it the implants have been affected by the line that implant loosening is still possibility differential in the diagnosis. However at this time I do not no significant signs of instability of the implants. I do no medial instability of the knee. I recommended bilateral MCL braces with weightbearing as tolerated on bilateral lower extremities. Patient should ambulate with a walker and follow-up in the office in 2 weeks. Plan is to go to residential facility she will likely need significant help as weightbearing will be difficult as she begins her recovery. [facility] Office:
--- NOTE | 2018-03-04 13:40 | CON.PCM_ITS ---
Reason for Consult Date of Consultation: 03/04/18 Reason for Consultation: Bilateral knee pain after fall. Requested by History of Present Illness: The patient is a 72 year old F with history of multiple medical comorbidities. Patient has bilateral hip replacements and bilateral knee replacements. She fell in the bathroom yesterday and into the hospital with bilateral knee pain and back pain. Currently she reports no back pain. She is somewhat sleepy during our encounter. She reports bilateral medial knee pain. Worse with weightbearing better with immobilization and pain medications. Patient states is 8 out of 10 with weightbearing. It is a dull achy pain on the inside of her knee. She has associated ecchymosis. No associated numbness or tingling. No fevers chills or night sweats. She has been diagnosed with a UTI and is being treated accordingly. Plan is for her to be discharged to a intermediate facility/TCU here at the hospital Past Medical History Past Medical History (Chronic Problems): Chronic Problems Nephrolithiasis (Chronic) Anxiety (Chronic) Hyperlipidemia (Chronic) Hypertension (Chronic) Rheumatoid arthritis (Chronic) Allergies Sulfa (Sulfonamide Antibiotics) Allergy (Verified 03/03/18 23:56) Other DOES NOT KNOW REACTION, HAPPENED WHEN 3 YRS OLD codeine Adverse Reaction (Verified 03/03/18 23:56) Nausea tramadol Adverse Reaction (Verified 03/03/18 23:56) Nausea Bee Stings Allergy (Uncoded 03/03/18 23:56) Anaphylaxis Home Medications: Ambulatory Orders Medication Instructions Recorded Atorvastatin Calcium [Lipitor] 10 mg PO QHS 11/08/13 Folic Acid 2 mg PO SUMOTUWETHSA 11/08/13 Losartan Potassium 50 mg PO DAILY 11/08/13 Prednisone 10 mg PO DAILY PRN 11/08/13 Adalimumab [Humira] 40 mg SQ Q14D 04/09/16 Escitalopram Oxalate [Lexapro] 20 mg PO DAILY 03/09/17 Meloxicam [Mobic] 7.5 mg PO DAILY 03/09/17 Jacumba-3S/Dha/Epa/Fish Oil [Fish 1 each PO DAILY 03/09/17 Oil 1,200 mg Softgel] Acetaminophen [Tylenol] 1,000 mg PO Q8 PRN 03/04/18 Aspirin [Aspirin, Baby] 81 mg PO DAILY@0800 03/04/18 Hydrocodone Bitart/Apap 5-325 1 tablet PO DAILY 03/04/18 [Cogswell 5MG-325MG] Hydrocodone/Acetaminophen 0.5 tab PO QHS 03/04/18 [Hydrocodon-Acetaminophen 5-325] Methotrexate 03/04/18 Surgical History: - - Tonsillectomy, right total knee replacement,bone removed from.left hip. Psychiatric History: No pertinent psych hx Lives: Spouse/ Significant Other Smoking Status: Never smoker Tobacco Use: Non-smoker Alcohol: None Drugs: None - *Family History Maternal History Items: - - mother with lung cancer. Review of Systems Constitutional: Denies: Chills, Fever, Weight Change HEENT: Denies: Head Aches, Sinus Congestion, Sinus Drainage Cardiovascular: Denies: Chest Pain, Palpitations Respiratory: Denies: Cough, Shortness of breath at rest, Sputum production Gastrointestinal: Denies: Abdominal Pain, Nausea, Vomiting Genitourinary: Reports: Dysuria Musculoskeletal: Reports: Joint Pain, Joint Tenderness Skin: Denies: Rash, Wounds Neurological: Denies: Numbness, Tingling, Focal weakness Psychiatric: Denies: Anxiety, Depression, Homicidal Ideations, Suicidal Ideations Hematologic/ Lymphatic: Denies: Easy Bruising, Easy Bleeding Patient Problems: Active and Suspected Problems Mechanical fall (Acute) UTI (urinary tract infection) (Acute) Fracture of both knees (Acute) Objective: Bilateral knee x-rays do show bilateral medial epicondyle avulsion fractures. CT scans are consistent with this with a more severe epicondyle fracture on the left. It does extend somewhat into the prosthesis however the remainder the prosthesis appears stable. Will component on the right appears stable. Bilateral tibial components appear stable. X-rays of the thoracic and lumbar spine were reviewed showing no acute fractures there is degenerative disease of the lumbar spine. CT scan of the cervical spine shows no acute fractures some loss of normal cervical lordosis and cervical arthrosis is noted. - Physical Exam General: Alert, Oriented x3, Cooperative Extremities: - - Bilateral knees: Swelling and ecchymosis medially on bilateral knees. Tenderness palpation over both medial epicondyles. Patient has 2 mm laxity laterally on varus valgus stress testing and 4 mm laxity medially. Consistent with medial laxity. Patient has no pain with short arc range of motion. Patient is not very cooperative with range of motion examination. Extensor mechanism intact. neuroVascularly intact distally. Vital Signs Temp Pulse Resp BP Pulse Ox 99.2 F H 77 16 116/48 L 97 03/04/18 12:50 03/04/18 10:00 03/04/18 10:00 03/04/18 10:00 03/04/18 10:00 Oxygen Delivery Method Room Air Weight: 205 lb 14.588 oz Body Mass Index (BMI) 35.3 Intake and Output for Last 24 Hours 03/02/18 03/03/18 03/04/18 23:59 23:59 23:59 Intake Total 2019 Output Total 1220 / 1220 Balance 800 / 800 Assessment/Plan Active and Suspected Problems Mechanical fall (Acute) UTI (urinary tract infection) (Acute) Fracture of both knees (Acute) Bilateral medial epicondyle fracture status post fall. Implants appear stable in both knees. I did discuss the patient is a possibility with long-term follow -up we may find it the implants have been affected by the line that implant loosening is still possibility differential in the diagnosis. However at this time I do not no significant signs of instability of the implants. I do no medial instability of the knee. I recommended bilateral MCL braces with weightbearing as tolerated on bilateral lower extremities. Patient should ambulate with a walker and follow-up in the office in 2 weeks. Plan is to go to intermediate facility she will likely need significant help as weightbearing will be difficult as she begins her recovery. PHYLL[facility] Office:
--- NOTE | 2018-03-04 14:06 | CASEMGMT ---
Addendum entered by Paco Price 03/04/18 15:14: Per Makayla @ [facility], pt will be measured for braces Sat am. Original Note: MALATHI MUNOZ Note. Per Dr. Weeks, pt will need bilateral MCL braces from [facility]. Script written. -Call to MakaylaElier @ [phone]. Cost of brace is approximately $965 each. Will need to measure pt at hospital and purchase order will be taken by them to purchasing dept. Braces will need ordered, and will be available after . -MAALTHI MUNOZ called to Echocardiograph Technician, case discussed including this brace only is appropriate for pt per Dr. Weeks. Approval to have script filled through [facility], fitted @ hospital. -DC PLAN is for TCU when precertification is received. Braces can be delivered to TCU when available if pt has transferred to this unit. Noemí SANDRA RN ACM
--- NOTE | 2018-03-04 14:50 | CASEMGMT ---
RAVI spoke w/Matilde in TCU, she does not anticipate getting a precert today, so pt will be here until Wednesday (as Wednesday is a holiday and insurance will be closed). RAVI let Matilde know to call the SW on [facility] should she get precert as pt is getting moved to [facility], or just call [facility] directly. RAVI did also let Matilde know that pt will be getting knee braces from [facility], and they are anticipated to be delivered on Wednesday to pt, whether she is here or in TCU. RAVI spoke w/pt, let her know we did not yet get precert and it is not anticipated we will get the precert today, so pt will be here until Wednesday. DIANA Gee, DIRECTOR FINANCIAL SYSTEMS
--- NOTE | 2018-03-04 15:10 | CASEMGMT ---
Social Work Note RAVI received call from Matilde in TCU stating that pre-cert has been obtained. RAVI updated Florencia ORTIZ of this as pt is still on [facility]. Florencia ORTIZ states that Dr. Mccray is following pt and that he will discharging pt today. Florencia ORTIZ attempted to call Matilde in TCU but her voicemail states that she is out of the office. Florencia ORTIZ put green sheet on chart. 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
--- NOTE | 2018-03-04 15:12 | CASEMGMT ---
Pt was actually approved to go to TCU today. SW let pt know, and Dr. Mccray is going to discharge pt today. Green sheet on chart in anticipation of pt being discharged this afternoon. DIANA Gee, NURSING CLINICAL DIRECTOR
--- NOTE | 2018-03-04 15:44 | PCM.TXEXTCAR ---
- Diet 03/04/18 04:07 Diet: Regular Diet Food consistency:: Regular Liquid Consistency:: Regular/Thin - Therapies Weight Bearing: bilateral MCL braces, with walker Physical Therapy: Eval and Treat Occupational Therapy: Eval and Treat - Problem/Diagnosis (1) Mechanical fall Status: Acute Current Visit: Yes (2) UTI (urinary tract infection) Status: Acute Current Visit: Yes (3) Fracture of both knees Status: Acute Current Visit: Yes (4) Anemia Status: Chronic Current Visit: No (5) Hypertension Status: Chronic Current Visit: No (6) Rheumatoid arthritis Status: Chronic Current Visit: No - Allergies/Procedures Done in Hospital Allergies/Adverse Reactions: Allergies Sulfa (Sulfonamide Antibiotics) Allergy (Verified 03/03/18 23:56) Other DOES NOT KNOW REACTION, HAPPENED WHEN 3 YRS OLD codeine Adverse Reaction (Verified 03/03/18 23:56) Nausea tramadol Adverse Reaction (Verified 03/03/18 23:56) Nausea Bee Stings Allergy (Uncoded 03/03/18 23:56) Anaphylaxis Procedures: None - Type of Care/Length of Stay Estimated LOS: Convalescent Care Less Than 30 days Type of Care Needed: Skilled Rehab Potential: Good Prognosis: Good - Additional Orders/Day of Discharge Additional Orders: see Dr. Weeks in two weeks H&P will serve as current which was dated: 03/04/18 Day of Discharge: 03/04/18 - Follow Up Care Primary Care Physician: Kameron Huerta MD [Primary Care Provider] -
--- NOTE | 2018-03-04 15:54 | NURSING ---
report called to Angelica in TCU. informed that pt would need to be in chemo precautions for 48 hours following methotrexate dose. also called and informed him that pt would be moved to TCU room 2.
[2018-03-04] MEDS: Methotrexate 2.5 MG Tablet 15 MG PO (16:02)
--- NOTE | 2018-03-04 16:31 | PCM.DC.SUM ---
Discharge Date and Diagnosis Date of Admission: 03/04/18 Date of Discharge: 03/04/18 - Primary Discharge Diagnosis #1 bilateral distal femoral fractures-left medial condylar, right nondisplaced chip fracture of medial aspect of the distal femur-secondary to osteoporosis #2 acute cystitis #3 rheumatoid arthritis #4 hypertension #5 chronic anemia #6 hyperparathyroidism - Secondary Discharge Diagnosis Chronic Problems Anemia (Chronic) Nephrolithiasis (Chronic) Anxiety (Chronic) Hyperlipidemia (Chronic) Hypertension (Chronic) Rheumatoid arthritis (Chronic) Hospital Course and Treatment Operations: None Procedures: None Summary of Care Provided: The patient is a 72 year old F in the emergency room at [facility] after sustaining a fall at home, patient slipped and her own urine and injured both knees. X-rays of the knees revealed fractures of both distal femurs, patient did not sustain any additional fractures. Labs done in the emergency room showed the patient's white blood cell count to be normal, creatinine was slightly elevated, and patient's urinalysis indicated an acute cystitis. Patient was admitted to [place] [id number], seen by orthopedic surgery, and given IV Rocephin. She was also seen by PT and OT. Orthopedic surgery did not feel that she was a candidate for surgical repair and recommended bilateral knee braces. Patient was felt to qualify for inpatient mcc care, approval was obtained for transfer to TCU for mcc care. On 03/04/18, patient was seen and examined felt to be in stable condition for transfer to TCU Home Medications: Medications to take at Discharge Atorvastatin Calcium [Lipitor] 10 mg PO QHS 11/08/13 Folic Acid 2 mg PO SUMOTUWETHSA 11/08/13 Losartan Potassium 50 mg PO DAILY 11/08/13 Escitalopram Oxalate [Lexapro] 20 mg PO DAILY 03/09/17 Meloxicam [Mobic] 7.5 mg PO DAILY 03/09/17 Acetaminophen [Tylenol Tablet] 650 mg PO Q6H PRN PRN tablet 03/04/18 Aspirin [Aspirin, Baby] 81 mg PO DAILY@0800 03/04/18 Cephalexin [Keflex] 500 mg PO 4X/DAY #29 capsule 03/04/18 Cyclobenzaprine HCl 5 mg PO TID PRN PRN tablet 03/04/18 Docusate Sodium [Colace] 200 mg PO BID PRN PRN capsule 03/04/18 Heparin Injection (Vial) [Heparin Na] 5,000 unit SC Q12 vial 03/04/18 Methotrexate 15 mg PO QWEEK #1 03/04/18 Oxycodone [Oxyir] 5 mg PO Q4H PRN PRN 7 Days #20 tab 03/04/18 Polyethylene Glycol 3350 [Miralax] 17 gm PO DAILY packet 03/04/18 Following Prescrptions Were Given to Patient: Oxycodone [Oxyir] 5 mg PO Q4H PRN PRN 7 Days #20 tab PRN Reason: Moderate Pain (pain scale 4-5) Methotrexate 15 mg PO QWEEK #1 Cephalexin [Keflex] 500 mg PO 4X/DAY #29 capsule Primary Care Physician: Kameron Huerta MD [Primary Care Provider] - Disposition: [facility]dc facility Minutes spent on discharge:: 32 Patient Condition:: Stable Medical Necessity - Tobacco Use Smoking Status: Never smoker Tobacco Use: Non-smoker Meaningful Use Info Meaningful Use Diagnoses (Choose all that apply): None applicable Code Visit OBSV E&M: 22975 Observ/hosp same date L3
--- NOTE | 2018-03-04 16:36 | DS.PCM_ITS ---
Discharge Date and Diagnosis Date of Admission: 03/04/18 Date of Discharge: 03/04/18 - Primary Discharge Diagnosis #1 bilateral distal femoral fractures-left medial condylar, right nondisplaced chip fracture of medial aspect of the distal femur-secondary to osteoporosis #2 acute cystitis #3 rheumatoid arthritis #4 hypertension #5 chronic anemia #6 hyperparathyroidism - Secondary Discharge Diagnosis Chronic Problems Anemia (Chronic) Nephrolithiasis (Chronic) Anxiety (Chronic) Hyperlipidemia (Chronic) Hypertension (Chronic) Rheumatoid arthritis (Chronic) Hospital Course and Treatment Operations: None Procedures: None Summary of Care Provided: The patient is a 72 year old F in the emergency room at [facility] after sustaining a fall at home, patient slipped and her own urine and injured both knees. X-rays of the knees revealed fractures of both distal femurs, patient did not sustain any additional fractures. Labs done in the emergency room showed the patient's white blood cell count to be normal, creatinine was slightly elevated, and patient's urinalysis indicated an acute cystitis. Patient was admitted to [place] [address], seen by orthopedic surgery, and given IV Rocephin. She was also seen by PT and OT. Orthopedic surgery did not feel that she was a candidate for surgical repair and recommended bilateral knee braces. Patient was felt to qualify for inpatient assisted care, approval was obtained for transfer to TCU for assisted care. On 03/04/18 , patient was seen and examined felt to be in stable condition for transfer to TCU Home Medications: Medications to take at Discharge Atorvastatin Calcium [Lipitor] 10 mg PO QHS 11/08/13 Folic Acid 2 mg PO SUMOTUWETHSA 11/08/13 Losartan Potassium 50 mg PO DAILY 11/08/13 Escitalopram Oxalate [Lexapro] 20 mg PO DAILY 03/09/17 Meloxicam [Mobic] 7.5 mg PO DAILY 03/09/17 Acetaminophen [Tylenol Tablet] 650 mg PO Q6H PRN PRN tablet 03/04/18 Aspirin [Aspirin, Baby] 81 mg PO DAILY@0800 03/04/18 Cephalexin [Keflex] 500 mg PO 4X/DAY #29 capsule 03/04/18 Cyclobenzaprine HCl 5 mg PO TID PRN PRN tablet 03/04/18 Docusate Sodium [Colace] 200 mg PO BID PRN PRN capsule 03/04/18 Heparin Injection (Vial) [Heparin Na] 5,000 unit SC Q12 vial 03/04/18 Methotrexate 15 mg PO QWEEK #1 03/04/18 Oxycodone [Oxyir] 5 mg PO Q4H PRN PRN 7 Days #20 tab 03/04/18 Polyethylene Glycol 3350 [Miralax] 17 gm PO DAILY packet 03/04/18 Following Prescrptions Were Given to Patient: Oxycodone [Oxyir] 5 mg PO Q4H PRN PRN 7 Days #20 tab PRN Reason: Moderate Pain (pain scale 4-5) Methotrexate 15 mg PO QWEEK #1 Cephalexin [Keflex] 500 mg PO 4X/DAY #29 capsule Primary Care Physician: Kameron Huerta MD [Primary Care Provider] - Disposition: Nursing Home facility Minutes spent on discharge:: 32 Patient Condition:: Stable Medical Necessity - Tobacco Use Smoking Status: Never smoker Tobacco Use: Non-smoker Meaningful Use Info Meaningful Use Diagnoses (Choose all that apply): None applicable Code Visit OBSV E&M: 09349 Observ/hosp same date L3
== END 2018-03-04 16:08 | disposition skilled nursing facility (03) ==
LOC: ED 03-04 01:07 → MS2 03-04 04:23 → MS3 03-08 07:51
PROVIDERS: Admitting Provider Internal Medicine; Emergency Provider Emergency Medicine; Family Provider Family Medicine; PCP Family Medicine; Visit Provider Internal Medicine
DX: S72.432A Displaced fracture of medial condyle of left femur, initial encounter for closed fracture (principal); S72.434A Nondisplaced fracture of medial condyle of right femur, initial encounter for closed fracture; W01.0XXA Fall on same level from slipping, tripping and stumbling without subsequent striking against object, initial encounter; Y93.9 Activity, unspecified; M06.9 Rheumatoid arthritis, unspecified; E21.3 Hyperparathyroidism, unspecified; N30.00 Acute cystitis without hematuria; Z79.899 Other long term (current) drug therapy; Z79.82 Long term (current) use of aspirin; E78.5 Hyperlipidemia, unspecified; Z79.891 Long term (current) use of opiate analgesic; Y92.002 Bathroom of unspecified non-institutional (private) residence as the place of occurrence of the external cause; E86.0 Dehydration; Z96.651 Presence of right artificial knee joint; I12.9 Hypertensive chronic kidney disease with stage 1 through stage 4 chronic kidney disease, or unspecified chronic kidney disease; N18.3 Chronic kidney disease, stage 3 (moderate); D63.8 Anemia in other chronic diseases classified elsewhere
CPT/HCPCS: 70450; 71045; 72072; 72100; 72125; 72170; 73564; 73700; 80048; 81001; 83036; 83605; 84484; 85025; 87086; 87088; 87186; 93005; 96365; 96366; 96372; 96375; 97162; 97165; 99218; 99285; J7030; J7040; G0378; J2405; J8610

== ENCOUNTER 2018-03-04 16:20 | Inpatient (IN) | payer OTHER, SELFPAY ==
[2018-03-04 16:35] VITALS: BP 113/58; PULSE 86; RESP 16; TEMP 37.1; O2SAT 90
[2018-03-04 16:47] VITALS: BMI 35.4
[2018-03-04 16:50] VITALS: BMI 35.5
--- NOTE | 2018-03-04 17:05 | NURSING ---
PT ARRIVED FROM [facility]IA @ 3042
--- NOTE | 2018-03-04 17:12 | PCM.HP.STD ---
Problem List (1) Dehydration Status: Acute (2) Mechanical fall Status: Acute (3) UTI (urinary tract infection) Status: Acute (4) Fracture of both knees Status: Acute (5) Anemia Status: Chronic (6) Anxiety Status: Chronic (7) Hyperlipidemia Status: Chronic (8) Hypertension Status: Chronic (9) Rheumatoid arthritis Status: Chronic History of Present Illness Date of Admission: 03/04/18 Chief Complaint: Here for rehabilitation, strengthening, prior to discharge home with spouse. The patient is a 72 year old Female with below past medical history presented to [facility] Emergency Department 03/04/2018 with fall, back pain. 03/04/2018 CT brain normal. 03/04/2018 CT cervical spine showed multilevel degenerative changes. 03/04/2018 X-ray right knee medial femoral condyle fracture, small effusion. 03/04/2018 X-ray left knee medial femoral condyle fracture, moderate effusion. 03/04/2018 X-ray of L spine showed arthritis. 03/04/2018 X-ray T spine negative. 03/04/2018 X-ray pelvis shows bilateral hip prosthesis. 03/04/2018 Chest X-ray negative. 03/04/2018 CT bilateral knees show same as X-rays. Mechanical fall, slipped in bathroom. Nausea, weakness, urinary frequency. No head injury. Zofran, Tylenol given. EKG Normal sinus rhythm, rate 85. Platelet 133, Glucose 133, Cr 1.09. UA consistent with UTI, Troponin negative, Lactic acid normal. Urine culture sent. Rocephin IV given. 03/04/2018 Admit to Hospital. Pain control, muscle relaxant, PT/OT. Rocephin IV for UTI. IV fluids for dehydration. 03/04/2018 Dr. Weeks recommended bilateral MCL braces, weight bearing as tolerated. 03/04/2018 Admit to TCU for rehabilitation, strengthening, prior to discharge home with spouse. Past Medical History Past Medical History (Chronic Problems): Chronic Problems Anemia (Chronic) Nephrolithiasis (Chronic) Anxiety (Chronic) Hyperlipidemia (Chronic) Hypertension (Chronic) Rheumatoid arthritis (Chronic) Allergies Sulfa (Sulfonamide Antibiotics) Allergy (Verified 03/03/18 23:56) Other DOES NOT KNOW REACTION, HAPPENED WHEN 3 YRS OLD codeine Adverse Reaction (Verified 03/03/18 23:56) Nausea tramadol Adverse Reaction (Verified 03/03/18 23:56) Nausea Bee Stings Allergy (Uncoded 03/03/18 23:56) Anaphylaxis Home Medications: Ambulatory Orders Medication Instructions Recorded Atorvastatin Calcium [Lipitor] 10 mg PO QHS 11/08/13 Folic Acid 2 mg PO SUMOTUWETHSA 11/08/13 Losartan Potassium 50 mg PO DAILY 11/08/13 Escitalopram Oxalate [Lexapro] 20 mg PO DAILY 03/09/17 Meloxicam [Mobic] 7.5 mg PO DAILY 03/09/17 Acetaminophen [Tylenol Tablet] 650 mg PO Q6H PRN PRN tablet 03/04/18 Aspirin [Aspirin, Baby] 81 mg PO DAILY@0800 03/04/18 Cephalexin [Keflex] 500 mg PO 4X/DAY 03/04/18 Cyclobenzaprine HCl 5 mg PO TID PRN PRN tablet 03/04/18 Docusate Sodium [Colace] 200 mg PO BID PRN PRN capsule 03/04/18 Heparin Injection (Vial) [Heparin 5,000 unit SC Q12 03/04/18 Na] Methotrexate 15 mg PO QWEEK #1 03/04/18 Polyethylene Glycol 3350 [Miralax] 17 gm PO DAILY 03/04/18 Surgical History: total hip arthroplasty - Bilateral., total knee arthroplasty - Bilateral., tonsillectomy, - - Bone removed from left hip. 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 Paternal History Items: No pertinent history Review of Systems Constitutional: Denies: Chills, Fever, Weight Change HEENT: Denies: Head Aches, Sinus Congestion, Sinus Drainage Cardiovascular: Denies: Chest Pain, Palpitations Respiratory: Denies: Cough, Shortness of breath at rest, Sputum production Gastrointestinal: Denies: Abdominal Pain, Nausea, Vomiting Genitourinary: Denies: Dysuria Musculoskeletal: Denies: Joint Pain, Joint Tenderness Skin: Denies: Rash, Wounds Neurological: Denies: Numbness, Tingling, Focal weakness Psychiatric: Denies: Anxiety, Depression, Homicidal Ideations, Suicidal Ideations Hematologic/ Lymphatic: Denies: Easy Bruising, Easy Bleeding VTE Information - Inpt Only VTE Present on Admission: No VTE Mechan Device Prophylaxis: Knee High SOURAV Hose VTE Pharm Prophylaxis ordered?: Yes Patient Problems: Active and Suspected Problems Dehydration (Acute) - Physical Exam General: Alert, Oriented x3, Cooperative HEENT: Atraumatic, PERRLA, EOMI, Normocephalic Neck: Supple, No JVD, Negative Carotid Bruits Lungs: Clear to auscultation, Normal air movement Cardiovascular: Regular rate, No murmurs Abdomen: Bowel Sounds Present, Soft, Non Tender Extremities: No edema, Capillary Refill Less than 3 Seconds, - - Bilateral knee braces. Skin: No rashes, No breakdown Musculoskeletal: No Tenderness to Palpation of Joints or Extremities Neurological: Cranial nerves II-XII grossly intact Psych/Mental Status: Normal Affect, Appropriate Vital Signs Temp Pulse Resp BP Pulse Ox 98.8 F 86 16 113/58 L 90 03/04/18 16:35 03/04/18 16:35 03/04/18 16:35 03/04/18 16:35 03/04/18 16:35 Oxygen Delivery Method Room Air Weight: 93.695 kg Body Mass Index (BMI) 35.4 Finger Stick Blood Glucose 119 Assessment/Plan Active and Suspected Problems Dehydration (Acute) 72 year old female with below past medical history significant for rheumatoid arthritis, hospitalized for bilateral knee fractures after fall, complicated by urinary tract infection, dehydration, admitted to TCU with debility, here for rehabilitation, strengthening, prior to discharge home with spouse. Debility - PT/OT. Pain - Union 5/325MG, 1 tablet Q4H PRN moderate pain. Bowel - Miralax 17GM daily, Senna/colace 2 tablets BID, Dulcolax 10MG PO daily PRN. Pneumonia vaccination - Administer Prevnar 13 and/or Pneumovax 23 as necessary. DVT prophylaxis - Lovenox 40MG SC daily. CV prophylaxis - Aspirin 81MG daily. Hyperlipidemia -Atorvastatin 10MG QHS. UTI - Urine culture pending, Keflex 500MG 4x/day thru 03/12/2018. Muscle spasm - Flexeril 5MG TID PRN. Anxiety - Lexapro 20MG daily. Rheumatoid Arthritis - MTX 15MG Qweek, Folic acid 2MG 6 days per week, Meloxicam 7.5MG daily. Hypertension - Losartan 50MG daily.
--- NOTE | 2018-03-04 17:23 | HP.PCM_ITS ---
Problem List (1) Dehydration Status: Acute (2) Mechanical fall Status: Acute (3) UTI (urinary tract infection) Status: Acute (4) Fracture of both knees Status: Acute (5) Anemia Status: Chronic (6) Anxiety Status: Chronic (7) Hyperlipidemia Status: Chronic (8) Hypertension Status: Chronic (9) Rheumatoid arthritis Status: Chronic History of Present Illness Date of Admission: 03/04/18 Chief Complaint: Here for rehabilitation, strengthening, prior to discharge home with spouse. The patient is a 72 year old Female with below past medical history presented to [facility] Emergency Department 03/04/2018 with fall, back pain. 03/04/2018 CT brain normal. 03/04/2018 CT cervical spine showed multilevel degenerative changes. 03/04/2018 X-ray right knee medial femoral condyle fracture, small effusion. 03/04/2018 X-ray left knee medial femoral condyle fracture, moderate effusion. 03/04/2018 X-ray of L spine showed arthritis. 03/04/2018 X-ray T spine negative. 03/04/2018 X-ray pelvis shows bilateral hip prosthesis. 03/04/2018 Chest X-ray negative. 03/04/2018 CT bilateral knees show same as X-rays. Mechanical fall, slipped in bathroom. Nausea, weakness, urinary frequency. No head injury. Zofran, Tylenol given. EKG Normal sinus rhythm, rate 85. Platelet 133, Glucose 133, Cr 1.09. UA consistent with UTI, Troponin negative, Lactic acid normal. Urine culture sent. Rocephin IV given. 03/04/2018 Admit to Hospital. Pain control, muscle relaxant, PT/OT. Rocephin IV for UTI. IV fluids for dehydration. 03/04/2018 Dr. Weeks recommended bilateral MCL braces, weight bearing as tolerated. 03/04/2018 Admit to TCU for rehabilitation, strengthening, prior to discharge home with spouse. Past Medical History Past Medical History (Chronic Problems): Chronic Problems Anemia (Chronic) Nephrolithiasis (Chronic) Anxiety (Chronic) Hyperlipidemia (Chronic) Hypertension (Chronic) Rheumatoid arthritis (Chronic) Allergies Sulfa (Sulfonamide Antibiotics) Allergy (Verified 03/03/18 23:56) Other DOES NOT KNOW REACTION, HAPPENED WHEN 3 YRS OLD codeine Adverse Reaction (Verified 03/03/18 23:56) Nausea tramadol Adverse Reaction (Verified 03/03/18 23:56) Nausea Bee Stings Allergy (Uncoded 03/03/18 23:56) Anaphylaxis Home Medications: Ambulatory Orders Medication Instructions Recorded Atorvastatin Calcium [Lipitor] 10 mg PO QHS 11/08/13 Folic Acid 2 mg PO SUMOTUWETHSA 11/08/13 Losartan Potassium 50 mg PO DAILY 11/08/13 Escitalopram Oxalate [Lexapro] 20 mg PO DAILY 03/09/17 Meloxicam [Mobic] 7.5 mg PO DAILY 03/09/17 Acetaminophen [Tylenol Tablet] 650 mg PO Q6H PRN PRN tablet 03/04/18 Aspirin [Aspirin, Baby] 81 mg PO DAILY@0800 03/04/18 Cephalexin [Keflex] 500 mg PO 4X/DAY 03/04/18 Cyclobenzaprine HCl 5 mg PO TID PRN PRN tablet 03/04/18 Docusate Sodium [Colace] 200 mg PO BID PRN PRN capsule 03/04/18 Heparin Injection (Vial) [Heparin 5,000 unit SC Q12 03/04/18 Na] Methotrexate 15 mg PO QWEEK #1 03/04/18 Polyethylene Glycol 3350 [Miralax] 17 gm PO DAILY 03/04/18 Surgical History: total hip arthroplasty - Bilateral., total knee arthroplasty - Bilateral., tonsillectomy, - - Bone removed from left hip. Psychiatric History: No pertinent psych hx [employer] History: No pertinent [employer]IL[employer]OR history Lives: Spouse/ Significant Other Smoking Status: Never smoker Tobacco Use: Non-smoker Alcohol: None Drugs: None - *Family History Maternal History Items: - - mother with lung cancer. Paternal History Items: No pertinent history Review of Systems Constitutional: Denies: Chills, Fever, Weight Change HEENT: Denies: Head Aches, Sinus Congestion, Sinus Drainage Cardiovascular: Denies: Chest Pain, Palpitations Respiratory: Denies: Cough, Shortness of breath at rest, Sputum production Gastrointestinal: Denies: Abdominal Pain, Nausea, Vomiting Genitourinary: Denies: Dysuria Musculoskeletal: Denies: Joint Pain, Joint Tenderness Skin: Denies: Rash, Wounds Neurological: Denies: Numbness, Tingling, Focal weakness Psychiatric: Denies: Anxiety, Depression, Homicidal Ideations, Suicidal Ideations Hematologic/ Lymphatic: Denies: Easy Bruising, Easy Bleeding VTE Information - Inpt Only VTE Present on Admission: No VTE Mechan Device Prophylaxis: Knee High SOURAV Hose VTE Pharm Prophylaxis ordered?: Yes Patient Problems: Active and Suspected Problems Dehydration (Acute) - Physical Exam General: Alert, Oriented x3, Cooperative HEENT: Atraumatic, PERRLA, EOMI, Normocephalic Neck: Supple, No JVD, Negative Carotid Bruits Lungs: Clear to auscultation, Normal air movement Cardiovascular: Regular rate, No murmurs Abdomen: Bowel Sounds Present, Soft, Non Tender Extremities: No edema, Capillary Refill Less than 3 Seconds, - - Bilateral knee braces. Skin: No rashes, No breakdown Musculoskeletal: No Tenderness to Palpation of Joints or Extremities Neurological: Cranial nerves II-XII grossly intact Psych/Mental Status: Normal Affect, Appropriate Vital Signs Temp Pulse Resp BP Pulse Ox 98.8 F 86 16 113/58 L 90 03/04/18 16:35 03/04/18 16:35 03/04/18 16:35 03/04/18 16:35 03/04/18 16:35 Oxygen Delivery Method Room Air Weight: 93.695 kg Body Mass Index (BMI) 35.4 Finger Stick Blood Glucose 119 Assessment/Plan Active and Suspected Problems Dehydration (Acute) 72 year old female with below past medical history significant for rheumatoid arthritis, hospitalized for bilateral knee fractures after fall, complicated by urinary tract infection, dehydration, admitted to TCU with debility, here for rehabilitation, strengthening, prior to discharge home with spouse. * Debility - PT/OT. * Pain - [place] 5/325MG, 1 tablet Q4H PRN moderate pain. * Bowel - Miralax 17GM daily, Senna/colace 2 tablets BID, Dulcolax 10MG PO daily PRN. * Pneumonia vaccination - Administer Prevnar 13 and/or Pneumovax 23 as necessary. * DVT prophylaxis - Lovenox 40MG SC daily. * CV prophylaxis - Aspirin 81MG daily. * Hyperlipidemia -Atorvastatin 10MG QHS. * UTI - Urine culture pending, Keflex 500MG 4x/day thru 03/12/2018. * Muscle spasm - Flexeril 5MG TID PRN. * Anxiety - Lexapro 20MG daily. * Rheumatoid Arthritis - MTX 15MG Qweek, Folic acid 2MG 6 days per week, Meloxicam 7.5MG daily. * Hypertension - Losartan 50MG daily.
[2018-03-04] MEDS: Senna/Docusate Sodium 1 Tablet 2 TABLET PO (18:12)
--- NOTE | 2018-03-04 18:21 | NURSING ---
pt has been really drowsy since admit from [facility], dozes of during conversation and head bobs. sat 85% on RA, applied oxygen 2 liters, now sat 97%. Will continue to monitor. pt sitting in recliner chair. denies needs. call light in reach.
[2018-03-04 20:27] VITALS: TEMP 38.7
[2018-03-04] MEDS: Acetaminophen 500 MG Tablet 1000 MG PO (21:02)
[2018-03-04] MEDS: Atorvastatin Calcium 10 MG Tablet PO (21:04)
[2018-03-04] MEDS: Cephalexin 250 MG Capsule 500 MG PO (21:04)
--- NOTE | 2018-03-04 21:05 | NURSING ---
Addendum entered by Hina Cruz 03/04/18 21:06: Dr. Tenorio also gave orders to do blood cultures on patient. Original Note: Dr. Tenorio notified of patient having a T of 101.7. Patient not c/o pain at this time. New orders for tylenol 1000 mg q8h prn for mild pain/fever.
[2018-03-05] MEDS: Acetaminophen 500 MG Tablet 1000 MG PO (06:40)
[2018-03-05] MEDS: Cephalexin 500 MG Capsule PO ×4 (06:42→21:30)
[2018-03-05] MEDS: Losartan Potassium 50 MG Tablet PO (06:42)
[2018-03-05] MEDS: Escitalopram Oxalate 20 MG Tablet PO (06:42)
[2018-03-05] MEDS: Meloxicam 7.5 MG Tablet PO (06:42)
[2018-03-05] MEDS: Senna/Docusate Sodium 1 Tablet 2 TABLET PO ×2 (06:42→17:44)
[2018-03-05] MEDS: Polyethylene Glycol 3350 17 GM PACKET PO (06:43)
[2018-03-05] MEDS: Enoxaparin 40 MG/0.4 ML Syringe SC (06:43)
[2018-03-05 07:00] LABS: Absolute Lymphocyte Count 1.12 X10^3/ul (0.83-4.51); Absolute Neutrophil Count 4.2 X10^3/uL (2.0-7.7); Basophil# 0.02 X10^3/uL; Basophil% 0.3 % (0-1); Eosinophil# 0.01 X10^3/uL; Eosinophils% 0.2 % (0-5); Hematocrit 32.4 % (37-47); Hemoglobin 10.4 g/dl (12.0-15.0); Lymphocyte # 1.12 X10^3/ul (4.0); Lymphocyte % 18.2 % (19-41); Mean Corp Hgb Conc 32.1 g/gl (32-36); Mean Corpuscular Hgb 32.3 pg (27.0-32.0); Mean Corpuscular Volume 100.6 fL (81-99); Mean Platelet Vol. 10.5 fl (6.2-12.0); Monocyte# 0.79 X10^3/uL; Monocyte% 12.8 % (0-10); Neutrophil # 4.22 X10^3/uL (2.7-7.7); Neutrophil % 68.3 % (47-70); Platelet Count 116 K/mm3 (150-450); RBC Distribution Width CV 12.9 % (11.6-14.6); RBC Distribution Width SD 46.1 fl (35.1-43.9); Red Blood Count 3.22 M/mm3 (4.2-5.4); White Blood Count 6.2 K/mm3 (4.4-11.0)
[2018-03-05 07:05] LABS: POSITIVE COUNT NO; POSITIVE DIFFERENTIAL NO; POSITIVE MORPHOLOGY NO
[2018-03-05 07:38] LABS: Anion Gap 5 (5-15); BUN 12 mg/dL (7-18); BUN/Creat Ratio 14.3 RATIO (10-20); Calcium,Total 11.3 mg/dL (8.5-10.1); Chloride 110 mmol/L (98-107); Creatinine, Serum 0.84 mg/dL (0.55-1.02); EST Glomerular Filtration Rate 71 mL/min (>60); Est Glom Filt Rate - Afr Amer 86 mL/min (>60); Estimated Creatinine Clearance 53.04 ml/min; Glucose 104 mg/dL (74-106); Potassium 3.9 mmol/L (3.5-5.1); Sodium Level 141 mmol/L (136-145)
[2018-03-05] MEDS: Aspirin 81 MG TAB.CHEW PO (08:21)
[2018-03-05] MEDS: Tuberculin,Purif.prot.deriv. 50 TU/ML Vial 5 ML ID (11:01)
[2018-03-05 15:38] VITALS: BP 93/50; PULSE 68; RESP 16; TEMP 36.6; O2SAT 100
[2018-03-05] MEDS: Folic Acid 1 MG Tablet 2 MG PO (17:44)
[2018-03-05] MEDS: Atorvastatin Calcium 10 MG Tablet PO (21:31)
[2018-03-05] MEDS: HYDROcodone Bitartrate/Apap 5/325 Tablet PO (21:34)
[2018-03-05 21:37] VITALS: PULSE 72; RESP 18; O2SAT 96
[2018-03-06] MEDS: HYDROcodone Bitartrate/Apap 5/325 Tablet PO ×2 (05:06→20:05)
[2018-03-06] MEDS: Losartan Potassium 50 MG Tablet PO (05:07)
[2018-03-06] MEDS: Cephalexin 500 MG Capsule PO ×4 (05:07→21:00)
[2018-03-06] MEDS: Escitalopram Oxalate 20 MG Tablet PO (05:07)
[2018-03-06] MEDS: Senna/Docusate Sodium 1 Tablet 2 TABLET PO (05:08)
[2018-03-06] MEDS: Meloxicam 7.5 MG Tablet PO (05:08)
[2018-03-06] MEDS: Polyethylene Glycol 3350 17 GM PACKET PO (05:08)
[2018-03-06] MEDS: Enoxaparin 40 MG/0.4 ML Syringe SC (05:12)
[2018-03-06] MEDS: Aspirin 81 MG TAB.CHEW PO (08:06)
[2018-03-06] MEDS: Folic Acid 1 MG Tablet 2 MG PO (08:07)
[2018-03-06] MEDS: Iron Polysaccharide Complex 150 MG CAPSULE PO (09:08)
[2018-03-06 15:07] VITALS: BP 102/56; PULSE 93; RESP 18; TEMP 36.8; O2SAT 96
[2018-03-06] MEDS: Atorvastatin Calcium 10 MG Tablet PO (20:05)
[2018-03-06 20:36] VITALS: PULSE 72; RESP 18; O2SAT 96
[2018-03-07] MEDS: Acetaminophen 500 MG Tablet 1000 MG PO ×2 (05:21→20:12)
[2018-03-07] MEDS: Enoxaparin 40 MG/0.4 ML Syringe SC (05:22)
[2018-03-07] MEDS: Meloxicam 7.5 MG Tablet PO (05:23)
[2018-03-07] MEDS: Escitalopram Oxalate 20 MG Tablet PO (05:23)
[2018-03-07] MEDS: Losartan Potassium 50 MG Tablet PO (05:23)
[2018-03-07] MEDS: Cephalexin 500 MG Capsule PO ×4 (05:23→20:08)
--- NOTE | 2018-03-07 07:27 | PCM.PN.RX ---
<Farhat Patiño - Last Filed: 03/07/18 07:27> Progress Note - Pharmacy Subjective: [] TCU Admission Objective: Allergies Sulfa (Sulfonamide Antibiotics) Allergy (Verified 03/03/18 23:56) Other DOES NOT KNOW REACTION, HAPPENED WHEN 3 YRS OLD codeine Adverse Reaction (Verified 03/03/18 23:56) Nausea tramadol Adverse Reaction (Verified 03/03/18 23:56) Nausea Bee Stings Allergy (Uncoded 03/03/18 23:56) Anaphylaxis Home Medications Medication Instructions Recorded Atorvastatin Calcium [Lipitor] 10 mg PO QHS 11/08/13 Folic Acid 2 mg PO SUMOTUWETHSA 11/08/13 Losartan Potassium 50 mg PO DAILY 11/08/13 Escitalopram Oxalate [Lexapro] 20 mg PO DAILY 03/09/17 Meloxicam [Mobic] 7.5 mg PO DAILY 03/09/17 Acetaminophen [Tylenol Tablet] 650 mg PO Q6H PRN PRN tablet 03/04/18 Aspirin [Aspirin, Baby] 81 mg PO DAILY@0800 03/04/18 Cephalexin [Keflex] 500 mg PO 4X/DAY 03/04/18 Cyclobenzaprine HCl 5 mg PO TID PRN PRN tablet 03/04/18 Docusate Sodium [Colace] 200 mg PO BID PRN PRN capsule 03/04/18 Heparin Injection (Vial) [Heparin 5,000 unit SC Q12 03/04/18 Na] Methotrexate 15 mg PO QWEEK #1 03/04/18 Polyethylene Glycol 3350 [Miralax] 17 gm PO DAILY 03/04/18 Current Medications Generic Name Dose Route Start Last Admin Trade Name Freq PRN Reason Stop Dose Admin Acetaminophen 1,000 mg 03/04/18 20:55 03/07/18 05:21 Tylenol PO 1,000 mg Q8H PRN PRN Administration MILD PAIN/FEVER Hydrocodone Bitart/Acetaminophen 1 tablet 03/04/18 17:31 03/06/18 20:05 [place] 5mg-325mg PO 1 tablet Q4H PRN PRN Administration MODERATE PAIN (4-5/10) Aspirin 81 mg 03/05/18 08:00 03/06/18 08:06 Aspirin, Baby PO 81 mg DAILY@0800 LI Administration Atorvastatin Calcium 10 mg 03/04/18 22:00 03/06/18 20:05 Lipitor PO [address] [facility] Administration Bisacodyl 10 mg 03/04/18 17:31 Dulcolax PO DAILY PRN Constipation Cephalexin 500 mg 03/05/18 06:00 03/07/18 05:23 Keflex PO 03/12/18 06:01 500 mg 4X/DAY [facility] Administration Cyclobenzaprine HCl 5 mg 03/04/18 16:54 Cyclobenzaprine Hcl PO TID PRN PRN muscle pain Enoxaparin Sodium 40 mg 03/05/18 06:00 03/07/18 05:22 Lovenox SC 40 mg DAILY@0600 [facility] Administration Escitalopram Oxalate 20 mg 03/05/18 06:00 03/07/18 05:23 Lexapro PO [address] [facility] Administration Folic Acid 2 mg 03/05/18 16:54 03/06/18 08:07 Folic Acid PO 2 mg SuMoTuWeThSa@0800 [facility] Administration Losartan Potassium 50 mg 03/05/18 06:00 03/07/18 05:23 Cozaar PO [address] [facility] Administration Meloxicam 7.5 mg 03/05/18 06:00 03/07/18 05:23 Mobic PO 7.[address] [facility] Administration Methotrexate 15 mg 03/11/18 08:[address] [facility] Polyethylene Glycol 17 gm 03/05/18 06:00 03/07/18 05:22 Miralax PO Not Given DAILY [facility] Polysaccharide Iron Complex 150 mg 03/06/18 08:00 03/06/18 09:08 Ferrex [address] [facility] [address] [facility] Administration Senna/Docusate Sodium 2 tablet 03/04/18 18:00 03/07/18 05:22 Senokot-S, Asiya-Colace PO Not Given BID [facility] Tuberculin PPD 5 tu 03/12/18 10:00 Tubersol, Aplisol, Ppd ID 03/12/18 10:01 X1 ONE Problem List Dehydration (Acute) Vital Signs Temp Pulse Resp BP Pulse Ox 98.3 F 72 18 102/56 L 96 03/06/18 15:07 03/06/18 20:36 03/06/18 20:36 03/06/18 15:07 03/06/18 20:36 Oxygen Flow Rate (L/min) 2 Oxygen Delivery Method Room Air Weight: 93.695 kg Body Mass Index (BMI) 35.4 Finger Stick Blood Glucose 119 Sodium 141 mmol/L (136-145) 03/05/18 06:10 Potassium 3.9 mmol/L (3.5-5.1) 03/05/18 06:10 Chloride 110 mmol/L (98-107) H 03/05/18 06:10 Carbon Dioxide 26.0 mmol/L (21.0-32.0) 03/05/18 06:10 Anion Gap 5 (5-15) 03/05/18 06:10 BUN 12 mg/dL (7-18) 03/05/18 06:10 Creatinine 0.84 mg/dL (0.55-1.02) 03/05/18 06:10 Est GFR (MDRD) Af Amer 86 mL/min (>60) 03/05/18 06:10 Est GFR (MDRD) Non-Af 71 mL/min (>60) 03/05/18 06:10 BUN/Creatinine Ratio 14.3 RATIO (10-20) 03/05/18 06:10 Glucose 104 mg/dL (74-106) 03/05/18 06:10 Assessment/Plan: 1) Pain: Acetaminophen 1,000mg po q8h prn mild pain/fever, [place] 5/325mg 1 tablet po q4h prn moderate pain. Please continue to monitor prn usage and for signs/symptoms of increased/decreased pain. 2) DVT Prophylaxis, CV Prophylaxis: Lovenox 40mg subq qam, ASA 81mg po qam. Pt's SrCr is 0.8, CrCl is 53. Pt's Plt have dropped from 133 on 03/04/18 to 116 on 03/05/18. Please continue to monitor *3) Hyperlipidemia: Atorvastatin 10mg po qhs. Please consider yearly Cholesterol levels and LFTs. Thanks 4) Hypertension: Losartan 50mg po daily. K+ is 3.9, SrCr is 0.8, CrCl is 53, BUN is 12. Pt's blood pressures and pulse are within normal limits. 5) UTI: Keflex 500mg po 4 times a day until 03/12/18. Please continue to monitor pt for signs/symptoms of infection. *6) Muscle Spasms: Flexeril 5mg po tid prn. Flexeril is on the BEERS list. Flexeril has anticholinergic adverse effects, sedation, and increased risk of fractures. As of 03/07/18 pt has not used any medication. Please evaluate continued use of medication. Thanks 7) Rheumatoid Arthritis: Methotrexate 15mg once a week on Fridays, Folic Acid 2mg every day except Wednesday, Meloxicam 7.5mg po daily. Please consider yearly LFTs while pt is on Methotrexate, and a Methotrexate level. Psychotropic Medications: Lexapro 20mg po daily. Medication will be due for a GDR by 09/06/18 unless clinically contraindicated. Unnecessary Medications: n/a Bowel Regimen: Bisacodyl 10mg po daily prn for constipation, Miralax 17gm po daily, Senna/Docusate 2 tablets po bid. Please continue to monitor prn usage and for signs/symptoms of constipation/diarrhea. Date of Note:: 03/07/18 - Provider Comments Provider responsibility: Provider responsible to enter orders to implement recommendations <Himanshu Tenorio Chi - Last Filed: 03/07/18 10:20> Progress Note - Pharmacy Subjective: [] Objective: Allergies Sulfa (Sulfonamide Antibiotics) Allergy (Verified 03/03/18 23:56) Other DOES NOT KNOW REACTION, HAPPENED WHEN 3 YRS OLD codeine Adverse Reaction (Verified 03/03/18 23:56) Nausea tramadol Adverse Reaction (Verified 03/03/18 23:56) Nausea Bee Stings Allergy (Uncoded 03/03/18 23:56) Anaphylaxis Home Medications Medication Instructions Recorded Atorvastatin Calcium [Lipitor] 10 mg PO QHS 11/08/13 Folic Acid 2 mg PO SUMOTUWETHSA 11/08/13 Losartan Potassium 50 mg PO DAILY 11/08/13 Escitalopram Oxalate [Lexapro] 20 mg PO DAILY 03/09/17 Meloxicam [Mobic] 7.5 mg PO DAILY 03/09/17 Acetaminophen [Tylenol Tablet] 650 mg PO Q6H PRN PRN tablet 03/04/18 Aspirin [Aspirin, Baby] 81 mg PO DAILY@0800 03/04/18 Cephalexin [Keflex] 500 mg PO 4X/DAY 03/04/18 Cyclobenzaprine HCl 5 mg PO TID PRN PRN tablet 03/04/18 Docusate Sodium [Colace] 200 mg PO BID PRN PRN capsule 03/04/18 Heparin Injection (Vial) [Heparin 5,000 unit SC Q12 03/04/18 Na] Methotrexate 15 mg PO QWEEK #1 03/04/18 Polyethylene Glycol 3350 [Miralax] 17 gm PO DAILY 03/04/18 Current Medications Generic Name Dose Route Start Last Admin Trade Name Freq PRN Reason Stop Dose Admin Acetaminophen 1,000 mg 03/04/18 20:55 03/07/18 05:21 Tylenol PO 1,000 mg Q8H PRN PRN Administration MILD PAIN/FEVER Hydrocodone Bitart/Acetaminophen 1 tablet 03/04/18 17:31 03/06/18 20:05 [place] 5mg-325mg PO 1 tablet Q4H PRN PRN Administration MODERATE PAIN (4-5/10) Aspirin 81 mg 03/05/18 08:00 03/07/18 08:15 Aspirin, Baby PO 81 mg DAILY@0800 [facility] Administration Atorvastatin Calcium 10 mg 03/04/18 22:00 03/06/18 20:05 Lipitor PO [address] [facility] Administration Bisacodyl 10 mg 03/04/18 17:31 Dulcolax PO DAILY PRN Constipation Cephalexin 500 mg 03/05/18 06:00 03/07/18 05:23 Keflex PO 03/12/18 06:01 500 mg 4X/DAY [facility] Administration Cyclobenzaprine HCl 5 mg 03/04/18 16:54 Cyclobenzaprine Hcl PO TID PRN PRN muscle pain Enoxaparin Sodium 40 mg 03/05/18 06:00 03/07/18 05:22 Lovenox SC 40 mg DAILY@0600 [facility] Administration Escitalopram Oxalate 20 mg 03/05/18 06:00 03/07/18 05:23 Lexapro PO 20 mg DAILY LI Administration Folic Acid 2 mg 03/05/18 16:54 03/07/18 08:15 Folic Acid PO 2 mg SuMoTuWeThSa@0800 [facility] Administration Losartan Potassium 50 mg 03/05/18 06:00 03/07/18 05:23 Cozaar PO 50 mg DAILY LI Administration Meloxicam 7.5 mg 03/05/18 06:00 03/07/18 05:23 Mobic PO 7.5 mg DAILY LI Administration Methotrexate 15 mg 03/11/18 08:[address] [facility] Polyethylene Glycol 17 gm 03/05/18 06:00 05/28/18 05:22 Miralax PO Not Given DAILY [facility] Polysaccharide Iron Complex 150 mg 03/06/18 08:00 03/07/18 08:15 Ferrex 150 PO 150 mg DAILYCM LI Administration Senna/Docusate Sodium 2 tablet 03/04/18 18:00 03/07/18 05:22 Senokot-S, Asiya-Colace PO Not Given BID LI Tuberculin PPD 5 tu 03/12/18 10:00 Tubersol, Aplisol, Ppd ID 03/12/18 10:01 X1 ONE Problem List Dehydration (Acute) Vital Signs Temp Pulse Resp BP Pulse Ox 98.3 F 72 18 102/56 L 96 03/06/18 15:07 03/06/18 20:36 03/06/18 20:36 03/06/18 15:07 03/06/18 20:36 Oxygen Flow Rate (L/min) 2 Oxygen Delivery Method Room Air Weight: 93.695 kg Body Mass Index (BMI) 35.4 Finger Stick Blood Glucose 119 Sodium 141 mmol/L (136-145) 03/05/18 06:10 Potassium 3.9 mmol/L (3.5-5.1) 03/05/18 06:10 Chloride 110 mmol/L (98-107) H 03/05/18 06:10 Carbon Dioxide 26.0 mmol/L (21.0-32.0) 03/05/18 06:10 Anion Gap 5 (5-15) 03/05/18 06:10 BUN 12 mg/dL (7-18) 03/05/18 06:10 Creatinine 0.84 mg/dL (0.55-1.02) 03/05/18 06:10 Est GFR (MDRD) Af Amer 86 mL/min (>60) 03/05/18 06:10 Est GFR (MDRD) Non-Af 71 mL/min (>60) 03/05/18 06:10 BUN/Creatinine Ratio 14.3 RATIO (10-20) 03/05/18 06:10 Glucose 104 mg/dL (74-106) 03/05/18 06:10 Assessment/Plan: Psychotropic Medications: Unnecessary Medications: Bowel Regimen: - Provider Comments Provider responsibility: Provider responsible to enter orders to implement recommendations Provider Comments to Recommendations by Pharmacy: Agree
[2018-03-07] MEDS: Iron Polysaccharide Complex 150 MG CAPSULE PO (08:15)
[2018-03-07] MEDS: Aspirin 81 MG TAB.CHEW PO (08:15)
[2018-03-07] MEDS: Folic Acid 1 MG Tablet 2 MG PO (08:15)
--- NOTE | 2018-03-07 08:33 | PHA.CONS_ITS ---
<Farhat Patiño - Last Filed: 03/07/18 07:27> Progress Note - Pharmacy Subjective: [] TCU Admission Objective: Allergies Sulfa (Sulfonamide Antibiotics) Allergy (Verified 03/03/18 23:56) Other DOES NOT KNOW REACTION, HAPPENED WHEN 3 YRS OLD codeine Adverse Reaction (Verified 03/03/18 23:56) Nausea tramadol Adverse Reaction (Verified 03/03/18 23:56) Nausea Bee Stings Allergy (Uncoded 03/03/18 23:56) Anaphylaxis Home Medications Medication Instructions Recorded Atorvastatin Calcium [Lipitor] 10 mg PO QHS 11/08/13 Folic Acid 2 mg PO SUMOTUWETHSA 11/08/13 Losartan Potassium 50 mg PO DAILY 11/08/13 Escitalopram Oxalate [Lexapro] 20 mg PO DAILY 03/09/17 Meloxicam [Mobic] 7.5 mg PO DAILY 03/09/17 Acetaminophen [Tylenol Tablet] 650 mg PO Q6H PRN PRN tablet 03/04/18 Aspirin [Aspirin, Baby] 81 mg PO DAILY@0800 03/04/18 Cephalexin [Keflex] 500 mg PO 4X/DAY 03/04/18 Cyclobenzaprine HCl 5 mg PO TID PRN PRN tablet 03/04/18 Docusate Sodium [Colace] 200 mg PO BID PRN PRN capsule 03/04/18 Heparin Injection (Vial) [Heparin 5,000 unit SC Q12 03/04/18 Na] Methotrexate 15 mg PO QWEEK #1 03/04/18 Polyethylene Glycol 3350 [Miralax] 17 gm PO DAILY 03/04/18 Current Medications Generic Name Dose Route Start Last Admin Trade Name Freq PRN Reason Stop Dose Admin Acetaminophen 1,000 mg 03/04/18 20:55 03/07/18 05:21 Tylenol PO 1,000 mg Q8H PRN PRN Administration MILD PAIN/FEVER Hydrocodone Bitart/Acetaminophen 1 tablet 03/04/18 17:31 03/06/18 20:05 Rutledge 5mg-325mg PO 1 tablet Q4H PRN PRN Administration MODERATE PAIN (4-5/10) Aspirin 81 mg 03/05/18 08:00 03/06/18 08:06 Aspirin, Baby PO 81 mg DAILY@0800 LI Administration Atorvastatin Calcium 10 mg 03/04/18 22:00 03/06/18 20:05 Lipitor PO 10 mg QHS [facility] Administration Bisacodyl 10 mg 03/04/18 17:31 Dulcolax PO DAILY PRN Constipation Cephalexin 500 mg 03/05/18 06:00 03/07/18 05:23 Keflex PO 03/12/18 06:01 500 mg 4X/DAY [facility] Administration Cyclobenzaprine HCl 5 mg 03/04/18 16:54 Cyclobenzaprine Hcl PO TID PRN PRN muscle pain Enoxaparin Sodium 40 mg 03/05/18 06:00 03/07/18 05:22 Lovenox SC 40 mg DAILY@0600 [facility] Administration Escitalopram Oxalate 20 mg 03/05/18 06:00 03/07/18 05:23 Lexapro PO 20 mg DAILY [facility] Administration Folic Acid 2 mg 03/05/18 16:54 03/06/18 08:07 Folic Acid PO 2 mg SuMoTuWeThSa@0800 [facility] Administration Losartan Potassium 50 mg 03/05/18 06:00 03/07/18 05:23 Cozaar PO 50 mg DAILY [facility] Administration Meloxicam 7.5 mg 03/05/18 06:00 03/07/18 05:23 Mobic PO 7.5 mg DAILY [facility] Administration Methotrexate 15 mg 03/11/18 08:00 Methotrexate PO QWEEK [facility] Polyethylene Glycol 17 gm 03/05/18 06:00 03/07/18 05:22 Miralax PO Not Given DAILY [facility] Polysaccharide Iron Complex 150 mg 03/06/18 08:00 03/06/18 09:08 [facility] Senna/Docusate Sodium 2 tablet 03/04/18 18:00 03/07/18 05:22 Senokot-S, Asiya-Colace PO Not Given BID [facility] Tuberculin PPD 5 tu 03/12/18 10:00 Tubersol, Aplisol, Ppd ID 03/12/18 10:01 X1 ONE Problem List Dehydration (Acute) Vital Signs Temp Pulse Resp BP Pulse Ox 98.3 F 72 18 102/56 L 96 03/06/18 15:07 03/06/18 20:36 03/06/18 20:36 03/06/18 15:07 03/06/18 20:36 Oxygen Flow Rate (L/min) 2 Oxygen Delivery Method Room Air Weight: 93.695 kg Body Mass Index (BMI) 35.4 Finger Stick Blood Glucose 119 Sodium 141 mmol/L (136-145) 03/05/18 06:10 Potassium 3.9 mmol/L (3.5-5.1) 03/05/18 06:10 Chloride 110 mmol/L (98-107) H 03/05/18 06:10 Carbon Dioxide 26.0 mmol/L (21.0-32.0) 03/05/18 06:10 Anion Gap 5 (5-15) 03/05/18 06:10 BUN 12 mg/dL (7-18) 03/05/18 06:10 Creatinine 0.84 mg/dL (0.55-1.02) 03/05/18 06:10 Est GFR (MDRD) Af Amer 86 mL/min (>60) 03/05/18 06:10 Est GFR (MDRD) Non-Af 71 mL/min (>60) 03/05/18 06:10 BUN/Creatinine Ratio 14.3 RATIO (10-20) 03/05/18 06:10 Glucose 104 mg/dL (74-106) 03/05/18 06:10 Assessment/Plan: 1) Pain: Acetaminophen 1,000mg po q8h prn mild pain/fever, Rutledge 5/325mg 1 tablet po q4h prn moderate pain. Please continue to monitor prn usage and for signs/symptoms of increased/decreased pain. 2) DVT Prophylaxis, CV Prophylaxis: Lovenox 40mg subq qam, ASA 81mg po qam. Pt' s SrCr is 0.8, CrCl is 53. Pt's Plt have dropped from 133 on 03/04/18 to 116 on 03/05/18. Please continue to monitor *3) Hyperlipidemia: Atorvastatin 10mg po qhs. Please consider yearly Cholesterol levels and LFTs. Thanks 4) Hypertension: Losartan 50mg po daily. K+ is 3.9, SrCr is 0.8, CrCl is 53, BUN is 12. Pt's blood pressures and pulse are within normal limits. 5) UTI: Keflex 500mg po 4 times a day until 03/12/18. Please continue to monitor pt for signs/symptoms of infection. *6) Muscle Spasms: Flexeril 5mg po tid prn. Flexeril is on the BEERS list. Flexeril has anticholinergic adverse effects, sedation, and increased risk of fractures. As of 03/07/18 pt has not used any medication. Please evaluate continued use of medication. Thanks 7) Rheumatoid Arthritis: Methotrexate 15mg once a week on Fridays, Folic Acid 2mg every day except Wednesday, Meloxicam 7.5mg po daily. Please consider yearly LFTs while pt is on Methotrexate, and a Methotrexate level. Psychotropic Medications: Lexapro 20mg po daily. Medication will be due for a GDR by 09/06/18 unless clinically contraindicated. Unnecessary Medications: n/a Bowel Regimen: Bisacodyl 10mg po daily prn for constipation, Miralax 17gm po daily, Senna/Docusate 2 tablets po bid. Please continue to monitor prn usage and for signs/symptoms of constipation/diarrhea. Date of Note:: 03/07/18 - Provider Comments Provider responsibility: Provider responsible to enter orders to implement recommendations <Himanshu Tenorio Chi - Last Filed: 03/07/18 10:20> Progress Note - Pharmacy Subjective: [] Objective: Allergies Sulfa (Sulfonamide Antibiotics) Allergy (Verified 03/03/18 23:56) Other DOES NOT KNOW REACTION, HAPPENED WHEN 3 YRS OLD codeine Adverse Reaction (Verified 03/03/18 23:56) Nausea tramadol Adverse Reaction (Verified 03/03/18 23:56) Nausea Bee Stings Allergy (Uncoded 03/03/18 23:56) Anaphylaxis Home Medications Medication Instructions Recorded Atorvastatin Calcium [Lipitor] 10 mg PO QHS 11/08/13 Folic Acid 2 mg PO SUMOTUWETHSA 11/08/13 Losartan Potassium 50 mg PO DAILY 11/08/13 Escitalopram Oxalate [Lexapro] 20 mg PO DAILY 03/09/17 Meloxicam [Mobic] 7.5 mg PO DAILY 03/09/17 Acetaminophen [Tylenol Tablet] 650 mg PO Q6H PRN PRN tablet 03/04/18 Aspirin [Aspirin, Baby] 81 mg PO DAILY@0800 03/04/18 Cephalexin [Keflex] 500 mg PO 4X/DAY 03/04/18 Cyclobenzaprine HCl 5 mg PO TID PRN PRN tablet 03/04/18 Docusate Sodium [Colace] 200 mg PO BID PRN PRN capsule 03/04/18 Heparin Injection (Vial) [Heparin 5,000 unit SC Q12 03/04/18 Na] Methotrexate 15 mg PO QWEEK #1 03/04/18 Polyethylene Glycol 3350 [Miralax] 17 gm PO DAILY 03/04/18 Current Medications Generic Name Dose Route Start Last Admin Trade Name Freq PRN Reason Stop Dose Admin Acetaminophen 1,000 mg 03/04/18 20:55 03/07/18 05:21 Tylenol PO 1,000 mg Q8H PRN PRN Administration MILD PAIN/FEVER Hydrocodone Bitart/Acetaminophen 1 tablet 03/04/18 17:31 03/06/18 20:05 Rutledge 5mg-325mg PO 1 tablet Q4H PRN PRN Administration MODERATE PAIN (4-5/10) Aspirin 81 mg 03/05/18 08:00 03/07/18 08:15 Aspirin, Baby PO 81 mg DAILY@0800 [facility] Administration Atorvastatin Calcium 10 mg 03/04/18 22:00 03/06/18 20:05 Lipitor PO 10 mg QHS [facility] Administration Bisacodyl 10 mg 03/04/18 17:31 Dulcolax PO DAILY PRN Constipation Cephalexin 500 mg 03/05/18 06:00 03/07/18 05:23 Keflex PO 03/12/18 06:01 500 mg 4X/DAY [facility] Administration Cyclobenzaprine HCl 5 mg 03/04/18 16:54 Cyclobenzaprine Hcl PO TID PRN PRN muscle pain Enoxaparin Sodium 40 mg 03/05/18 06:00 03/07/18 05:22 Lovenox SC 40 mg DAILY@0600 [facility] Administration Escitalopram Oxalate 20 mg 03/05/18 06:00 03/07/18 05:23 Lexapro PO 20 mg DAILY [facility] Administration Folic Acid 2 mg 03/05/18 16:54 03/07/18 08:15 Folic Acid PO 2 mg SuMoTuWeThSa@0800 [facility] Administration Losartan Potassium 50 mg 03/05/18 06:00 03/07/18 05:23 Cozaar PO 50 mg DAILY LI Administration Meloxicam 7.5 mg 03/05/18 06:00 03/07/18 05:23 Mobic PO 7.5 mg DAILY [facility] Administration Methotrexate 15 mg 03/11/18 08:00 Methotrexate PO QWEEK [facility] Polyethylene Glycol 17 gm 03/05/18 06:00 05/28/18 05:22 Miralax PO Not Given DAILY [facility] Polysaccharide Iron Complex 150 mg 03/06/18 08:00 03/07/18 08:15 Ferrex 150 PO 150 mg DAILYCM [facility] Administration Senna/Docusate Sodium 2 tablet 03/04/18 18:00 03/07/18 05:22 Senokot-S, Asiya-Colace PO Not Given BID [facility] Tuberculin PPD 5 tu 03/12/18 10:00 Tubersol, Aplisol, Ppd ID 03/12/18 10:01 X1 ONE Problem List Dehydration (Acute) Vital Signs Temp Pulse Resp BP Pulse Ox 98.3 F 72 18 102/56 L 96 03/06/18 15:07 03/06/18 20:36 03/06/18 20:36 03/06/18 15:07 03/06/18 20:36 Oxygen Flow Rate (L/min) 2 Oxygen Delivery Method Room Air Weight: 93.695 kg Body Mass Index (BMI) 35.4 Finger Stick Blood Glucose 119 Sodium 141 mmol/L (136-145) 03/05/18 06:10 Potassium 3.9 mmol/L (3.5-5.1) 03/05/18 06:10 Chloride 110 mmol/L (98-107) H 03/05/18 06:10 Carbon Dioxide 26.0 mmol/L (21.0-32.0) 03/05/18 06:10 Anion Gap 5 (5-15) 03/05/18 06:10 BUN 12 mg/dL (7-18) 03/05/18 06:10 Creatinine 0.84 mg/dL (0.55-1.02) 03/05/18 06:10 Est GFR (MDRD) Af Amer 86 mL/min (>60) 03/05/18 06:10 Est GFR (MDRD) Non-Af 71 mL/min (>60) 03/05/18 06:10 BUN/Creatinine Ratio 14.3 RATIO (10-20) 03/05/18 06:10 Glucose 104 mg/dL (74-106) 03/05/18 06:10 Assessment/Plan: Psychotropic Medications: Unnecessary Medications: Bowel Regimen: - Provider Comments Provider responsibility: Provider responsible to enter orders to implement recommendations Provider Comments to Recommendations by Pharmacy: Agree
--- NOTE | 2018-03-07 12:22 | NURSING ---
Speech Therapy Teacher from [employer] here, patient fitted for BL knee braces, will come to fit braces when delivered.
[2018-03-07 16:00] VITALS: BP 154/87; PULSE 65; RESP 16; TEMP 36.2; O2SAT 98
[2018-03-07] MEDS: Atorvastatin Calcium 10 MG Tablet PO (20:08)
[2018-03-08] MEDS: Escitalopram Oxalate 20 MG Tablet PO (05:00)
[2018-03-08] MEDS: Cephalexin 500 MG Capsule PO ×4 (05:01→20:06)
[2018-03-08] MEDS: Losartan Potassium 50 MG Tablet PO (05:01)
[2018-03-08] MEDS: Meloxicam 7.5 MG Tablet PO (05:01)
[2018-03-08] MEDS: Enoxaparin 40 MG/0.4 ML Syringe SC (05:03)
[2018-03-08] MEDS: Acetaminophen 500 MG Tablet 1000 MG PO ×2 (05:06→20:05)
[2018-03-08] MEDS: Folic Acid 1 MG Tablet 2 MG PO (07:52)
[2018-03-08] MEDS: Iron Polysaccharide Complex 150 MG CAPSULE PO (07:52)
[2018-03-08] MEDS: Aspirin 81 MG TAB.CHEW PO (07:52)
--- NOTE | 2018-03-08 09:02 | NURSING ---
DR REYES UPDATED ON FINAL URINE RESULTS. NNO
[2018-03-08 10:00] VITALS: PULSE 70; RESP 18; O2SAT 99
[2018-03-08 15:53] VITALS: BP 118/61; PULSE 70; RESP 18; TEMP 36.8; O2SAT 95
[2018-03-08] MEDS: Senna/Docusate Sodium 1 Tablet 2 TABLET PO (16:56)
[2018-03-08] MEDS: Atorvastatin Calcium 10 MG Tablet PO (20:07)
[2018-03-09] MEDS: Enoxaparin 40 MG/0.4 ML Syringe SC (05:41)
[2018-03-09] MEDS: Meloxicam 7.5 MG Tablet PO (05:43)
[2018-03-09] MEDS: Cephalexin 500 MG Capsule PO ×4 (05:43→20:51)
[2018-03-09] MEDS: Losartan Potassium 50 MG Tablet PO (05:43)
[2018-03-09] MEDS: Escitalopram Oxalate 20 MG Tablet PO (05:44)
[2018-03-09] MEDS: Iron Polysaccharide Complex 150 MG CAPSULE PO (07:41)
[2018-03-09] MEDS: Folic Acid 1 MG Tablet 2 MG PO (07:41)
[2018-03-09] MEDS: Aspirin 81 MG TAB.CHEW PO (07:42)
[2018-03-09] MEDS: Acetaminophen 500 MG Tablet 1000 MG PO (07:43)
--- NOTE | 2018-03-09 09:45 | CASEMGMT ---
Plan of care meeting held. Resident present as well as resident spouse. Resident requesting for discharge date to be set for 03/10/18, team is agreeable to discharge date. Resident plans to discharge home with spouse. No continued therapy is recommended at this time. Therapy will provide resident with a home exercise program at time of discharge. Resident spouse to provide transportation home for resident at time of discharge. Resident reporting to have all needed durable medical equipment already set up within the home. Support given. Proposed discharge date: 03/10/18. PLAN: Discharge home with spouse. Marion MARIE, CYNTHIA
--- NOTE | 2018-03-09 14:47 | CASEMGMT ---
Brief interview for mental status (BIMS) and resident mood interview (PHQ-9) completed on this day. BIMS score 1315. PHQ-9 score 12/07
[2018-03-09 15:53] VITALS: BP 134/59; PULSE 64; RESP 16; TEMP 36.6; O2SAT 95
[2018-03-09] MEDS: HYDROcodone Bitartrate/Apap 5/325 Tablet PO (19:35)
[2018-03-09] MEDS: Atorvastatin Calcium 10 MG Tablet PO (20:52)
[2018-03-10] MEDS: Losartan Potassium 50 MG Tablet PO (05:55)
[2018-03-10] MEDS: Acetaminophen 500 MG Tablet 1000 MG PO (05:55)
[2018-03-10] MEDS: Cephalexin 500 MG Capsule PO ×2 (05:55→11:32)
[2018-03-10] MEDS: Meloxicam 7.5 MG Tablet PO (05:56)
[2018-03-10] MEDS: Enoxaparin 40 MG/0.4 ML Syringe SC (05:56)
[2018-03-10] MEDS: Escitalopram Oxalate 20 MG Tablet PO (05:57)
[2018-03-10] MEDS: Iron Polysaccharide Complex 150 MG CAPSULE PO (09:39)
[2018-03-10] MEDS: Aspirin 81 MG TAB.CHEW PO (09:39)
[2018-03-10] MEDS: Folic Acid 1 MG Tablet 2 MG PO (09:39)
[2018-03-10 10:00] VITALS: PULSE 84; RESP 18; O2SAT 96
--- NOTE | 2018-03-10 13:08 | PCM.DC ---
- Discharge Diagnoses Current Active Problems: Current Active and Chronic Problems Dehydration (Acute) You will use the following diet at home:: No restrictions, Regular Your liquids should be the consistency of: Regular/Thin Discharge Activity: Return to Normal Activity, May Shower, Use Walker Weight Bearing Status: Weight bearing as tolerated Call your doctor if you observe: Fever of 101 or Higher, Inability to urinate, Inability to have a bowel movement, Shortness of breath, Chest pain, Uncontrolled pain Allergies/Adverse Reactions: Allergies Sulfa (Sulfonamide Antibiotics) Allergy (Verified 03/03/18 23:56) Other DOES NOT KNOW REACTION, HAPPENED WHEN 3 YRS OLD codeine Adverse Reaction (Verified 03/03/18 23:56) Nausea tramadol Adverse Reaction (Verified 03/03/18 23:56) Nausea Bee Stings Allergy (Uncoded 03/03/18 23:56) Anaphylaxis Medications to take at Discharge Atorvastatin Calcium [Lipitor] 10 mg PO QHS 11/08/13 Folic Acid 2 mg PO SUMOTUWETHSA 11/08/13 Losartan Potassium 50 mg PO DAILY 11/08/13 Escitalopram Oxalate [Lexapro] 20 mg PO DAILY 03/09/17 Meloxicam [Mobic] 7.5 mg PO DAILY 03/09/17 Acetaminophen [Tylenol Tablet] 650 mg PO Q6H PRN PRN tablet 03/04/18 Aspirin [Aspirin, Baby] 81 mg PO DAILY@0800 03/04/18 Cyclobenzaprine HCl 5 mg PO TID PRN PRN tablet 03/04/18 Methotrexate 15 mg PO QWEEK #1 03/04/18 Acetaminophen [Tylenol] 1,000 mg PO Q8H PRN PRN tablet 03/10/18 Cephalexin [Keflex] 500 mg PO 4X/DAY #8 cap 03/10/18 Iron Polysaccharide Complex [Ferrex 150] 150 mg PO DAILYCM #30 cap 03/10/18 The following prescriptions were given: Iron Polysaccharide Complex [Ferrex 150] 150 mg PO DAILYCM #30 cap Cephalexin [Keflex] 500 mg PO 4X/DAY #8 cap Primary Care Physician: Kameron Huerta MD [Primary Care Provider] - Please follow up with your Primary Care Physician in: 1 week. Please Follow Up With: Dr Weeks When: 2 weeks. Proposed Discharge Date: 03/10/18
[2018-03-10 13:09] VITALS: BP 154/58; PULSE 75; RESP 14; TEMP 36.9; O2SAT 96
--- NOTE | 2018-03-10 13:10 | PCM.DC.SUM ---
Discharge Date and Diagnosis - Problem List Patient Problems: Active and Suspected Problems Dehydration (Acute) Date of Admission: 03/04/18 Date of Discharge: 03/10/18 - Primary Discharge Diagnosis Active and Suspected Problems Dehydration (Acute) - Secondary Discharge Diagnosis Chronic Problems Anemia (Chronic) Nephrolithiasis (Chronic) Anxiety (Chronic) Hyperlipidemia (Chronic) Hypertension (Chronic) Rheumatoid arthritis (Chronic) Hospital Course and Treatment Imaging Results: 03/04/18 16:57 Diet: Regular Diet Is pt able to select menu?: Yes Microbiology 03/04/18 21:18 Blood Culture (Wb) - Anticubital Left Blood Culture - Final No growth in 5 days. 03/04/18 21:12 Blood Culture (Wb) - Anticubital Right Blood Culture - Final No growth in 5 days. Operations: None Procedures: None Summary of Care Provided: The patient is a 72 year old Female with below past medical history significant for rheumatoid arthritis, hospitalized for bilateral knee fractures after fall, complicated by urinary tract infection, dehydration, admitted to TCU with debility, here for rehabilitation, strengthening, prior to discharge home with spouse. Discharge home with spouse. Discharge Diet: No Restrictions Discharge Activity: Return to Normal Activity, May Shower, Use Walker Weight Bearing Status: Weight bearing as tolerated Call your doctor if you observe: Fever of 101 or Higher, Inability to urinate, Inability to have a bowel movement, Shortness of breath, Chest pain, Uncontrolled pain Home Medications: Medications to take at Discharge Atorvastatin Calcium [Lipitor] 10 mg PO QHS 11/08/13 Folic Acid 2 mg PO SUMOTUWETHSA 11/08/13 Losartan Potassium 50 mg PO DAILY 11/08/13 Escitalopram Oxalate [Lexapro] 20 mg PO DAILY 03/09/17 Meloxicam [Mobic] 7.5 mg PO DAILY 03/09/17 Acetaminophen [Tylenol Tablet] 650 mg PO Q6H PRN PRN tablet 03/04/18 Aspirin [Aspirin, Baby] 81 mg PO DAILY@0800 03/04/18 Cyclobenzaprine HCl 5 mg PO TID PRN PRN tablet 03/04/18 Methotrexate 15 mg PO QWEEK #1 03/04/18 Acetaminophen [Tylenol] 1,000 mg PO Q8H PRN PRN tablet 03/10/18 Cephalexin [Keflex] 500 mg PO 4X/DAY #8 cap 03/10/18 Iron Polysaccharide Complex [Ferrex 150] 150 mg PO DAILYCM #30 cap 03/10/18 Following Prescrptions Were Given to Patient: Iron Polysaccharide Complex [Ferrex 150] 150 mg PO DAILYCM #30 cap Cephalexin [Keflex] 500 mg PO 4X/DAY #8 cap Primary Care Physician: Kameron Huerta MD [Primary Care Provider] - Please follow up with your Primary Care Physician in: 1 week. Please Follow Up With: Dr Weeks When: 2 weeks. Disposition: Home Minutes spent on discharge:: 30 Patient Condition:: Stable Medical Necessity - Tobacco Use Smoking Status: Never smoker Tobacco Use: Non-smoker Meaningful Use Info Meaningful Use Diagnoses (Choose all that apply): None applicable
--- NOTE | 2018-03-10 13:26 | NURSING ---
[employer] here to fit knee braces.
--- NOTE | 2018-03-11 11:40 | CASEMGMT ---
Insurance Notified insurance of resident discharge on 03/10/18. Auth#[id number] Marion MARIE, REFRIGERATION LEAD
--- NOTE | 2018-03-17 14:44 | MDS.RN ---
Information for the mds was obtained from review of the clinical record, interview of resident, staff, and direct observation of resident's care.
== END 2018-03-10 15:10 | disposition home or self-care (01) | DRG 560 ==
PROVIDERS: Admitting Provider Family Medicine Geriatric Medicine; Family Provider Family Medicine; PCP Family Medicine; Visit Provider Family Medicine Geriatric Medicine
DX: S72.432D Displaced fracture of medial condyle of left femur, subsequent encounter for closed fracture with routine healing (principal); N39.0 Urinary tract infection, site not specified; S72.431D Displaced fracture of medial condyle of right femur, subsequent encounter for closed fracture with routine healing; E78.5 Hyperlipidemia, unspecified; M06.9 Rheumatoid arthritis, unspecified; I10 Essential (primary) hypertension; F41.9 Anxiety disorder, unspecified; Z96.653 Presence of artificial knee joint, bilateral; W01.0XXD Fall on same level from slipping, tripping and stumbling without subsequent striking against object, subsequent encounter; Z79.899 Other long term (current) drug therapy
CPT/HCPCS: 36415; 80048; 85025; 87040; 97110; 97116; 97161; 97166; 97530; 97535; 97802

== ENCOUNTER 2018-05-23 13:27 | Emergency (ER) | payer OTHER, SELFPAY ==
[2018-05-23 13:28] VITALS: BP 119/65; PULSE 96; RESP 16; TEMP 36.8; O2SAT 96; BMI 34.3
--- NOTE | 2018-05-23 14:02 | ED.VISSUMM ---
- ER Visit Summary Date of Service: 05/23/18 Chief Complaint: Chest pain History of Present Illness: The patient is a 73 F who states that 3 weeks ago she fell while in [place] breaking her left femur. She ended up having ORIF and has come back to [place]. She is taking fragment and following up with Dr. Hagan. She states that last night she rolled in bed to reach for something and had a sudden onset of pain in the anterior right chest. She states that it seems positional but today is worse and seems to get worse with deep breathing. She denies missing any doses of Fragmin. She denies any leg swelling or change in pain in the leg and in fact states that since she was put on [place] she basically has been pain-free. Physical Examination: Afebrile vital signs are stable Gen: Well-nourished well-developed Head: Normocephalic atraumatic Eyes: Perrl EOMI ENT: TMs clear no rhinorrhea moist mucous membranes Neck: Supple no lymphadenopathy no JVD nontender CVS: Regular rate rhythm no murmurs normal S1-S2 Respiratory: No distress clear to auscultation bilaterally chest nontender Abdomen: Soft nontender nondistended normal bowel sounds no masses Back: Nontender Extremity: There is a healing left lateral thigh incision. Skin: Normal color no rash Neuro: alert orientated ?3 CN II-XII intact normal strength sensation reflexes gait cerebellar Psych: Normal affect normal mood Test Results: EKG shows a normal sinus rhythm at a rate of 70. CBC and a BMP showed a troponin of less than 0.015 CT Rita of the chest is positive for small bilateral pulmonary embolism. Emergency Department Course and Treatment: Patient is not tachycardic she is not hypoxic she is not dyspneic. Her EKG and troponin are negative. It appears the patient was on a prophylactic dose of Fragmin. I spoke with her orthopedic surgeon Dr. Hagan and paged her pcp. We will start the patient on Eliquis as I have a coupon for her to receive the first 30 days free.. She currently does not have any evidence of GI bleeding. Patient to return if worsening or concerns. Impression: 1. Pulmonary embolism This note was generated with [employer] dictation software. It may contain incorrect words, spelling, and punctuation that were not noted in review of the chart prior to signing ED Disposition - Plan for ED Patient: Disposition: Home or Assisted Living Chief Complaint: Chest Pain Instructions: Discharge Instructions for Pulmonary Embolism Prescriptions: Apixaban [Eliquis] 5 mg PO BID 30 Days tab Referrals: Kameron Huerta MD [Primary Care Provider] - 1 Week
[2018-05-23 15:03] LABS: Absolute Lymphocyte Count 1.95 X10^3/ul (0.83-4.51); Absolute Neutrophil Count 2.8 X10^3/uL (2.0-7.7); Basophil# 0.03 X10^3/uL; Basophil% 0.5 % (0-1); Eosinophil# 0.15 X10^3/uL; Eosinophils% 2.7 % (0-5); Hematocrit 37.4 % (37-47); Hemoglobin 11.6 g/dl (12.0-15.0); Lymphocyte # 1.95 X10^3/ul (4.0); Lymphocyte % 34.6 % (19-41); Mean Corpuscular Hgb 29.9 pg (27.0-32.0); Mean Corpuscular Volume 96.4 fL (81-99); Mean Platelet Vol. 10.2 fl (6.2-12.0); Monocyte# 0.72 X10^3/uL; Monocyte% 12.8 % (0-10); Neutrophil # 2.78 X10^3/uL (2.7-7.7); Neutrophil % 49.4 % (47-70); POSITIVE COUNT NO; POSITIVE DIFFERENTIAL NO; POSITIVE MORPHOLOGY NO; Platelet Count 495 K/mm3 (150-450); RBC Distribution Width CV 18.2 % (11.6-14.6); Red Blood Count 3.88 M/mm3 (4.2-5.4); White Blood Count 5.6 K/mm3 (4.4-11.0)
[2018-05-23 15:14] LABS: Anion Gap 6 (5-15); BUN 9 mg/dL (7-18); BUN/Creat Ratio 10.9 RATIO (10-20); Calcium,Total 11.9 mg/dL (8.5-10.1); Chloride 107 mmol/L (98-107); Creatinine, Serum 0.82 mg/dL (0.55-1.02); EST Glomerular Filtration Rate 73 mL/min (>60); Est Glom Filt Rate - Afr Amer 88 mL/min (>60); Estimated Creatinine Clearance 53.55 ml/min; Glucose 117 mg/dL (74-106); Potassium 3.7 mmol/L (3.5-5.1); Sodium Level 140 mmol/L (136-145)
[2018-05-23 16:32] VITALS: BP 150/71; PULSE 72; RESP 16; O2SAT 98
[2018-05-23] MEDS: APIXABAN 5 MG TABLET 10 MG PO (16:37)
== END 2018-05-23 16:44 | disposition home or self-care (01) ==
PROVIDERS: Emergency Provider Emergency Medicine; Family Provider Family Medicine; PCP Family Medicine
DX: I26.99 Other pulmonary embolism without acute cor pulmonale (principal); Z79.891 Long term (current) use of opiate analgesic; Z79.899 Other long term (current) drug therapy
CPT/HCPCS: 71275; 80048; 84484; 85025; 93005; 96360; 96361; 99285; J7040; Q9967; A4216

== ENCOUNTER → 2018-08-02 14:23 | Outpatient (CLI) | payer MEDICARE, SELFPAY ==
--- NOTE | 2018-08-02 14:27 | RAD_ITS ---
STUDY: X-RAY - ABDOMEN/PELVIS REASON FOR EXAM: Female, 73 years old. Gross hematuria ? kidney stone TECHNIQUE: Single AP view of the abdomen / pelvis. COMPARISON: None. FINDINGS: Normal visualized lung bases. There is an unremarkable bowel gas pattern. There is no demonstrated free abdominal air. Calcification overlying the left kidney suggesting a renal stone. There is scoliosis of the lumbar spine. Total right and left hip arthroplasty. Normal soft tissue structures. There are diffuse degenerative changes of the visualized lumbar spine. 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 RAD/Abdomen Single View IMPRESSION: Calcification overlying the left kidney suggesting a renal stone. Electronically Signed: Diony Lainez MD at 23:45 EDT , Service support ,
== END ==
PROVIDERS: Family Provider Family Medicine; PCP Family Medicine; Referring Provider Nurse Practitioner Adult Health; Visit Provider Nurse Practitioner Adult Health
DX: N20.0 Calculus of kidney (principal); R31.0 Gross hematuria
CPT/HCPCS: 74018

== ENCOUNTER → 2018-08-09 14:14 | Outpatient (CLI) | payer MEDICARE, SELFPAY ==
--- NOTE | 2018-08-09 14:17 | CT_ITS ---
STUDY: CT ABDOMEN AND PELVIS WITH CONTRAST REASON FOR EXAM: Female, 73 years old. Gross hematuria with right flank pain RADIATION DOSAGE (If Supplied By Facility): CTDIvol = ( 14.87 ) mGy, DLP = ( 1558.97 ) mGycm TECHNIQUE: Transaxial images were obtained from the dome of the diaphragm to the symphysis pubis without oral contrast. 100ml ml of Isovue 300 contrast was administered. Sagittal and coronal images were reconstructed. Individualized dose optimization techniques were used for this CT. COMPARISON: 11/05/2015 FINDINGS: The visualized lung bases are unremarkable. The visualized portions of the heart are within normal limits. Stable multiple nonenhancing liver cysts. Otherwise, unremarkable liver. Normal gallbladder and extrahepatic biliary system. Normal spleen. There is diffuse atrophy of the pancreas. Normal bilateral adrenal glands. Moderate right hydronephrosis is noted with proximal right hydroureter. It is difficult to evaluate the ureter is mid level there appears to be a calcification within the ureter however, there is significant periureteral fat stranding and edema with questionable masslike appearance. The calcification measures 2.8 mm. However, abnormal ureter noted on image 75, series 1002. Multiple other right-sided nephroliths are noted. Moderate to severe left hydronephrosis is noted with a stone in the proximal left ureter measuring 6 mm. Multiple other left-sided nephroliths are noted. Normal visualized stomach. Normal small intestine. There are multiple colonic diverticula consistent with diverticulosis. There is non-visualization of the appendix. There is diffuse atherosclerotic calcification of the abdominal aorta, without a demonstrated aneurysm. Normal inferior vena cava. Normal retroperitoneum. Urinary bladder is not visualized due to extensive beam hardening artifact the lower pelvis from bilateral hip replacement. There is atrophy of the uterus. Normal abdominal wall. There are diffuse degenerative changes of the visualized lumbar spine. Bilateral hip replacement CT/Abdomen/Pelvis WITH Contrast IMPRESSION: 1. Bilateral hydronephrosis as detailed above. In the proximal left ureter, numerous stones noted in a linear pattern. Multiple nonobstructing left-sided nephrolithiasis well 2. Multiple nonobstructing right-sided nephroliths. Mild to moderate hydronephrosis. There is a stone in the mid to distal ureter region as detailed above however, there is marked abnormality of the surrounding ureter which is difficult to further evaluate. 3. Remainder as above Electronically Signed: Kamaljit Guzman DO at 11:28 EDT Tel , Service support ,
== END ==
PROVIDERS: Family Provider Family Medicine; PCP Family Medicine; Referring Provider Nurse Practitioner Adult Health; Visit Provider Nurse Practitioner Adult Health
DX: R31.0 Gross hematuria (principal)
CPT/HCPCS: 74177; Q9967

== ENCOUNTER 2018-08-19 13:43 | Day surgery (SDC) | payer MEDICARE, SELFPAY ==
[2018-08-19 14:11] VITALS: BP 161/65; PULSE 65; RESP 16; TEMP 36.7; O2SAT 96; BMI 31.8
--- NOTE | 2018-08-19 15:00 | PCM.DC.URO ---
Discharge Diet: No Restrictions Discharge Activity: Return to Normal Activity, May Not Drive - for 2 days. Additional Activity Instructions:: Please be aware that pain medications may cause nausea. You should typically eat light foods as you take your pain medication. Pain medication may cause constipation, if this is a problem for you, please discuss with your doctor. Allergies/Adverse Reactions: Allergies Sulfa (Sulfonamide Antibiotics) Allergy (Verified 08/17/18 11:59) Other DOES NOT KNOW REACTION, HAPPENED WHEN 2 YRS OLD codeine Adverse Reaction (Verified 08/17/18 11:59) Nausea tramadol Adverse Reaction (Verified 08/17/18 11:59) Nausea Bee Stings Allergy (Uncoded 08/17/18 11:59) Anaphylaxis Medications to take at Discharge Atorvastatin Calcium [Lipitor] 10 mg PO QHS 11/08/13 Apixaban [Eliquis] 5 mg PO BID 30 Days tab 05/23/18 Escitalopram Oxalate [Lexapro] 20 mg PO DAILY 05/23/18 Folic Acid 2 mg PO SUMOTUWETHSA 05/23/18 Hydrocodone/Acetaminophen [Hydrocodone-Acetamin 5-325 mg] 1 tab PO BID 05/23/18 Losartan Potassium 50 mg PO DAILY 05/23/18 Methotrexate 15 mg PO FR 05/23/18 [place]-3S/Dha/Epa/Fish Oil [Fish Oil 1,200 mg Softgel] 1 capsule PO DAILY 05/23/18 Ciprofloxacin [Cipro] 500 mg PO BID #6 tablet 08/19/18 The following prescriptions were given: Ciprofloxacin [Cipro] 500 mg PO BID #6 tablet Primary Care Physician: Kameron Huerta MD [Primary Care Provider] - Test Results: Test results from this visit will be discussed in further detail at your follow-up appointment, if applicable. Please Follow Up With: Blaine Joyner MD When: in 2 weeks, please call to make an appointment.
[2018-08-19] MEDS: Cefazolin 2 GM in 0.9% Normal Saline 100 ML IV (15:04)
--- NOTE | 2018-08-19 16:09 | PCM.OPRPT ---
Report of Operation Date of Procedure: 08/19/18 Pre-Operative Diagnosis: Left ureteral calculi and right renal calculi Post-Operative Diagnosis: Same Surgery/Procedure Performed:: Cystoscopy, balloon dilation of the left ureter, left ureteroscopy laser lithotripsy of stones balloon dilation of left ureter and left stent placement. Right balloon dilation of ureter, laser lithotripsy of stones and right stent placement. Description of Surgical Findings:: 73-year-old female taken back to the operating room after smooth induction of general anesthesia she was placed supine on the table the legs were placed in dorsal lithotomy position, the urethra and vaginal area were prepped and draped in usual sterile fashion went into the bladder with a 21 Citizen Of [place] rigid cystourethroscope identified the anatomy of the bladder the bladder had a fairly significant cystocele bladder drop, no tumors or stones seen within the bladder left to right ureteral orifice were identified I cannulated the left ureteral orifice with a Glidewire advanced this up to the kidney and then advanced the balloon dilator over the wire balloon dilated the distal ureter and then went in with the flexible ureteroscope got up to the stone the stone was impacted in the mid ureter was then not able to get beyond the stone to that put a wire past the stone left the wire in place and then went back down with the ureteroscope put in a flexed a wire up and then then over the wire I went in with the rigid ureteroscope was able to then get to the stone it was impacted in the mid ureter I used the laser fiber and laser the stone little tiny pieces with a 270 ?m laser fiber energy settings of 0.6 J and 6 Hz we then increased it to 10Hz is a laser the stones completely then it migrated up to the kidney I then flipped back over to the flexible ureteroscope went up to the kidney laser the stones in the upper pole of the kidney and then found some other fragments in the lower pole the left kidney and these were lasered on little tiny pieces once this was successfully lasered I went down the ureter and then advanced a stent on the left side left stent in good position with the string on it for extraction in the near future, then went to the right side advanced a wire up the right ureter over the wire and advanced the balloon dilator balloon dilated the ureter then I went in with the flexible ureteroscope went all the way up to the kidney and then found the stone in the upper pole of the kidney stone was then lasered into little tiny pieces and then once the stone was successfully lasered at work my way down the ureter and then also put a stent up on the right side the stents curled in the kidney bladder good position left the string of the stent for extraction in the near future patient's bladder was drained anesthetic was reversed and plan to see her back next week to get stent out. Type of Anesthesia:: General Drains: b/l stents - Admit VTE Documentation VTE Present on Admission: No VTE Mechan Device Prophylaxis: SCD's
[2018-08-19 16:20] VITALS: BP 160/69; BP 161/65; PULSE 80; RESP 16; O2SAT 96
[2018-08-19] MEDS: Ketorolac 15 MG/ML Vial IV (16:27)
[2018-08-19 16:30] VITALS: BP 161/65; BP 174/68; PULSE 65; RESP 16; O2SAT 99
[2018-08-19 16:45] VITALS: BP 114/81; BP 161/65; PULSE 68; RESP 16; O2SAT 98
[2018-08-19 16:50] VITALS: BP 143/64; BP 161/65; PULSE 65; RESP 16; TEMP 36.4; O2SAT 97
[2018-08-19 18:00] VITALS: BP 161/65; BP 169/89; PULSE 74; RESP 16; TEMP 36.9; O2SAT 98
== END 2018-08-19 18:08 | disposition home or self-care (01) ==
LOC: SDC 13:43 → AC 13:44
PROVIDERS: Family Provider Family Medicine; PCP Family Medicine; Referring Provider Urology; Visit Provider Urology
PROC: (CPT 52356; principal; 2018-08-19 15:30)
DX: N20.2 Calculus of kidney with calculus of ureter (principal); E03.9 Hypothyroidism, unspecified; F32.9 Major depressive disorder, single episode, unspecified; I11.9 Hypertensive heart disease without heart failure; E21.3 Hyperparathyroidism, unspecified; Z86.718 Personal history of other venous thrombosis and embolism; E78.00 Pure hypercholesterolemia, unspecified; Z87.442 Personal history of urinary calculi; Z85.828 Personal history of other malignant neoplasm of skin; Z79.82 Long term (current) use of aspirin; Z79.02 Long term (current) use of antithrombotics/antiplatelets; Z79.52 Long term (current) use of systemic steroids; Z79.899 Other long term (current) drug therapy
CPT/HCPCS: 52341; 52356; 76000; J7120; C1769; C2617; J2405

== ENCOUNTER 2018-09-03 23:11 | Inpatient (IN) | payer MEDICARE, SELFPAY ==
[2018-09-03 23:12] VITALS: BP 132/47; PULSE 93; RESP 14; TEMP 39.3; O2SAT 97; BMI 27.9
--- NOTE | 2018-09-03 23:29 | EKG12_ITS ---
Test Reason : ALT LOC Blood Pressure : / mmHG Vent. Rate : 084 BPM Atrial Rate : 084 BPM P-R Int : 166 ms QRS Dur : 092 ms QT Int : 360 ms P-R-T Axes : -21 099 014 degrees QTc Int : 425 ms Sinus rhythm with occasional Premature ventricular complexes Rightward axis Incomplete right bundle branch block Borderline ECG Confirmed by WESLEY JEAN, AVIS ([id number]), editorial director PATY MEADE ([id number]) on 09/05/2018 2:19:26 PM Referred By: Blaine Joyner Confirmed By:AVIS OLSON MD
--- NOTE | 2018-09-03 23:29 | RAD_ITS ---
STUDY: X-RAY CHEST REASON FOR EXAM: Female, 73 years old. Altered level of consciousness TECHNIQUE: 1 view COMPARISON: January 02, 2018 FINDINGS: The lungs are clear and expanded. There is no demonstrated pleural abnormality. Normal size heart. Normal mediastinum and katie. Normal visualized pulmonary arteries. Normal visualized aortic arch and descending thoracic aorta. Normal visualized thoracic spine. Normal visualized ribs, clavicles, and shoulders. There is no demonstrated abnormality of the visualized soft tissue structures of the upper abdomen. RAD/Chest 1 View (Portable) IMPRESSION: Normal x-ray examination of the chest. No acute findings in the lungs Electronically Signed: Aj Wright MD at 0:21 EST Tel , Service support ,
--- NOTE | 2018-09-03 23:30 | CT_ITS ---
STUDY: CT ABDOMEN AND PELVIS WITHOUT CONTRAST REASON FOR EXAM: Female, 73 years old. Dysuria RADIATION DOSAGE (If Supplied By Facility): CTDIvol = ( 20.82 ) mGy, DLP = ( 949.28 ) mGycm TECHNIQUE: Transaxial images were obtained from the dome of the diaphragm to the symphysis pubis without oral contrast, and without intravenous contrast. Sagittal and coronal images were reconstructed. Individualized dose optimization techniques were used for this CT. COMPARISON: None. FINDINGS: The lung bases are clear. There are 4 benign hepatic cysts. They are all between 1 and 2 cm in size No dilated intrahepatic biliary radicles. The gallbladder is normal with no calcifications within it. There is no pericholecystic fluid collection or streakiness The spleen is normal. The pancreas is normal. Both adrenals are normal. Despite the presence of bilateral double pigtail stents there are still bilateral hydroureteronephrosis with a 3 mm calculus in the distal ureter approximately 5 cm from the left ureterovesical junction. There are 3 nonobstructing calyceal calculi with the largest in the right upper pole measuring 1.1 cm. There are 3 nonobstructing left calyceal calculi each approximately 4 mm. The stomach is normal. There is no bowel distention, acute appendicitis or diverticulitis. No constricting lesions are seen in large bowel. The abdominal wall is intact with no hernias. There is no ascites or any free intraperitoneal air. No indication of epiploic appendagitis The vascular structures in the retroperitoneum are normal. There is no retrocrural, retroperitoneal or mesenteric adenopathy. There are multilevel degenerative changes of the lumbosacral spine with extensive facet arthrosis evident central canal stenosis at L4-5 and L5-S1 The urinary bladder is normal.--The uterus is normal. There is no inguinal or pelvic adenopathy. There is no inguinal hernia. . CT/Abdomen/Pelvis without Cont IMPRESSION: Bilateral dual pigtail stents in place. Bilateral hydroureteronephrosis. A 4 mm calculus is seen in the distal left ureter. Multiple bilateral nonobstructing calyceal calculi. Benign hepatic cysts. Multilevel degenerative changes of the lumbosacral spine Electronically Signed: Aj Wright MD at 1:06 EST Tel , Service support ,
[2018-09-04] VITALS (8 sets, daily range): BP systolic 103–146; BP diastolic 39–55; PULSE 62–98; RESP 14–20; TEMP 36.8–39.6; O2SAT 94–99; BMI 31.7
[2018-09-04] MEDS: Acetaminophen 500 MG Tablet 1000 MG PO (00:11)
[2018-09-04 00:12] LABS: Absolute Lymphocyte Count 0.99 X10^3/ul (0.83-4.51); Absolute Neutrophil Count 3.7 X10^3/uL (2.0-7.7); Basophil# 0.02 X10^3/uL; Basophil% 0.4 % (0-1); Eosinophil# 0.01 X10^3/uL; Eosinophils% 0.2 % (0-5); Hematocrit 28.6 % (37-47); Hemoglobin 9.3 g/dl (12.0-15.0); Lymphocyte # 0.99 X10^3/ul (4.0); Mean Corp Hgb Conc 32.5 g/gl (32-36); Mean Corpuscular Hgb 32.4 pg (27.0-32.0); Mean Corpuscular Volume 99.7 fL (81-99); Mean Platelet Vol. 9.9 fl (6.2-12.0); Monocyte# 0.51 X10^3/uL; Monocyte% 9.8 % (0-10); Neutrophil # 3.67 X10^3/uL (2.7-7.7); Neutrophil % 70.6 % (47-70); Platelet Count 162 K/mm3 (150-450); RBC Distribution Width CV 14.1 % (11.6-14.6); RBC Distribution Width SD 50.9 fl (35.1-43.9); Red Blood Count 2.87 M/mm3 (4.2-5.4); White Blood Count 5.2 K/mm3 (4.4-11.0)
[2018-09-04 00:12] LABS: Mucous, Urine 0 SEEN /hpf (<or=2+)
[2018-09-04] MEDS: 0.9% Normal Saline 1,000 ML 1000 ML IV (00:12)
[2018-09-04 00:16] LABS: POSITIVE COUNT NO; POSITIVE DIFFERENTIAL NO; POSITIVE MORPHOLOGY NO
[2018-09-04 00:18] LABS: Glucose, Dipstick Normal (Normal); Ketone-Dipstick Negative (Negative); Leukocyte Esterase-Dipstick 500 /ul (Negative); Nitrite-Dipstick Negative (Negative); Occult Blood-Urine 250 /ul (Negative); Protein-Dipstick 100 mg/dl (Negative); Urine Bilirubin Dipstick Negative (Negative); Urine Clarity Cloudy (Clear); Urine Urobilinogen Normal (Normal)
[2018-09-04 00:20] LABS: ALB/GLOB Ratio 0.9 RATIO (0.9-2.4); AST(SGOT) 17 U/L (15-37); Alanine Aminotransfer ALT/SGPT 21 U/L (13-56); Albumin, Serum 2.9 g/dL (3.2-5.0); Alkaline Phosphatase 104 U/L (45-117); Anion Gap 6 (5-15); BUN 14 mg/dL (7-18); BUN/Creat Ratio 17.4 RATIO (10-20); Calcium,Total 10.4 mg/dL (8.5-10.1); Chloride 108 mmol/L (98-107); EST Glomerular Filtration Rate 75 mL/min (>60); Est Glom Filt Rate - Afr Amer 90 mL/min (>60); Estimated Creatinine Clearance 68.74 ml/min; Globulin 3.2 g/dL (2.2-4.2); Glucose 117 mg/dL (74-106); Potassium 3.4 mmol/L (3.5-5.1); Protein, Total 6.1 g/dL (6.4-8.2); Sodium Level 137 mmol/L (136-145)
[2018-09-04 00:21] LABS: International Normalized Ratio 1.3; Prothrombin Time (Protime)PT. 15.9 SECONDS (11.7-14.9)
[2018-09-04 00:23] LABS: Color, Urine SEE COMMENT BELOW (Yellow)
[2018-09-04 00:24] LABS: Bacteria 1+ /hpf (None Seen); Red Blood Cells-Urine 25-50 SEEN /hpf (0-5); Squamous Epithelial Cells - UA 0-5 SEEN /hpf (5-10); White Blood Cells 25-50 SEEN /hpf (0-5)
[2018-09-04 00:32] LABS: Lactic Acid 0.5 mmol/L (0.4-2.0)
--- NOTE | 2018-09-04 01:22 | PCM.HP.STD ---
Problem List (1) Sepsis Status: Acute Qualifiers: Sepsis type: sepsis due to unspecified organism Qualified Code(s): A41.9 - Sepsis, unspecified organism (2) UTI (urinary tract infection) Status: Acute Qualifiers: Urinary tract infection type: site unspecified (3) Encephalopathy acute Status: Acute (4) Nephrolithiasis Status: Chronic (5) Anxiety Status: Chronic (6) Hyperlipidemia Status: Chronic Qualifiers: Hyperlipidemia type: unspecified Qualified Code(s): E78.5 - Hyperlipidemia, unspecified (7) Hypertension Status: Chronic Qualifiers: Hypertension type: essential hypertension Qualified Code(s): I10 - Essential (primary) hypertension (8) Rheumatoid arthritis Status: Chronic Qualifiers: Rheumatoid arthritis location: unspecified site (9) History of DVT (deep vein thrombosis) Status: Chronic History of Present Illness Date of Admission: 09/04/18 Chief Complaint: Confusion, slurred speech. The patient is a 73 y/o F w/ PMHx: Chronic Macrocytic Anemia, HTN, HLD, Rheumatoid Arthritis, Anxiety and Depression, Recent history of DVT following L femur fracture 04/2018 who presents to the [facility] ED on 09/04/18 with history of confusion, fatigue, malaise and slurred speech, noted to have recently traveled back from [place] with her . She notes having had ongoing hematuria since recent stent placements. She notes she has had more cloudy appearing urine and suprapubic tenderness over the last 2 days in addition. Work-up in the ED included T102.8, heart rate 93, BP 132/47, respiratory rate 14, 97% on room air CBC with WBC 5.2, hemoglobin 9.3 (baseline hemoglobin 10-11), platelet 162 without market left shift, PT 15.9, INR 1.3, CMP with potassium 3.4, chloride 108, BUN/creatinine 14/0.80, glucose 117, lactic acid 0.5, calcium 10.4, troponin <0.015, urinalysis cloudy, 100 protein, occult blood 250, leukocyte esterase 500, RBC 25-50, WBC 25-50, urine bacteria 1+, urine culture and blood culture x2 pending per ED, chest x-ray with no acute findings, CT abdomen and pelvis with bilateral dual pigtail stents in place, bilateral hydroureteronephrosis with a 4 mm calculus in the distal left ureter, multiple bilateral nonobstructing calculi, benign hepatic cyst, altered level degenerative changes of the lumbosacral spine. In the ED patient chin strap maker normal saline, Zosyn, Tylenol. Past Medical History Past Medical History (Chronic Problems): Chronic Problems History of DVT (deep vein thrombosis) (Chronic) Anemia (Chronic) Nephrolithiasis (Chronic) Anxiety (Chronic) Hyperlipidemia (Chronic) Hypertension (Chronic) Rheumatoid arthritis (Chronic) Allergies Sulfa (Sulfonamide Antibiotics) Allergy (Verified 09/03/18 23:16) Other DOES NOT KNOW REACTION, HAPPENED WHEN 2 YRS OLD codeine Adverse Reaction (Verified 09/03/18 23:16) Nausea tramadol Adverse Reaction (Verified 09/03/18 23:16) Nausea Bee Stings Allergy (Uncoded 09/03/18 23:16) Anaphylaxis Home Medications: Ambulatory Orders Medication Instructions Recorded Atorvastatin Calcium [Lipitor] 10 mg PO QHS 11/08/13 Apixaban [Eliquis] 5 mg PO BID 30 Days tab 05/23/18 Escitalopram Oxalate [Lexapro] 20 mg PO DAILY 05/23/18 Folic Acid 2 mg PO SUMOTUWETHSA 05/23/18 Hydrocodone/Acetaminophen 1 tab PO BID 05/23/18 [Hydrocodone-Acetamin 5-325 mg] Losartan Potassium 50 mg PO DAILY 05/23/18 Methotrexate 15 mg PO FR 05/23/18 [place]-3S/Dha/Epa/Fish Oil [Fish 1 capsule PO DAILY 05/23/18 Oil 1,200 mg Softgel] Adalimumab [Humira Pen] 40 mg SQ QWEEK 09/04/18 Aspirin [Aspirin, Baby] 81 mg PO DAILY@0800 09/04/18 Surgical History: total hip arthroplasty - Bilateral., total knee arthroplasty - Bilateral., tonsillectomy, - - Bone removed from left hip, recent L femur fracture s/p repair with hardware. Psychiatric History: No pertinent psych hx LANGUAGE THERAPIST History: No pertinent LANGUAGE THERAPIST history Lives: Spouse/ Significant Other Smoking Status: Never smoker Tobacco Use: Non-smoker Alcohol: Rare Drugs: None - *Family History Maternal History Items: - - Mother with history of lung cancer. Paternal History Items: - - Patient denies any marked paternal family history including HD, DM, CA. Review of Systems Constitutional: Reports: Fever, Malaise, Weakness, Fatigue. Denies: Chills, Weight Change HEENT: Denies: Head Aches, Sinus Congestion, Sinus Drainage Cardiovascular: Denies: Chest Pain, Palpitations Respiratory: Denies: Cough, Shortness of breath at rest, Sputum production Gastrointestinal: Reports: Abdominal Pain. Denies: Nausea, Vomiting Genitourinary: Reports: Dysuria, Frequency, Hematuria Musculoskeletal: Reports: Joint Pain, Leg Pain. Denies: Joint Tenderness Skin: Denies: Rash, Wounds Neurological: Denies: Numbness, Tingling, Focal weakness Psychiatric: Denies: Anxiety, Depression, Homicidal Ideations, Suicidal Ideations Hematologic/ Lymphatic: Reports: Anemia. Denies: Easy Bruising, Easy Bleeding VTE Information - Inpt Only VTE Present on Admission: No VTE Mechan Device Prophylaxis: SCD's VTE Pharm Prophylaxis ordered?: No Reason prophylaxis not ordered:: Treatment Not Indicated - On eliquis, will continue. Patient Problems: Active and Suspected Problems Encephalopathy acute (Acute) Sepsis (Acute) Subjective: Seated upright in the ED bed, notes feeling improved since initial presentation, fatigued appearance. Objective: Physical Examination: General: awake, alert, oriented x 3 and cooperative, speech normal, not slurred, seated upright in the ED bed in no apparent distress, fatigued appearance. Skin: normal color, turgor, no icterus, cyanosis. HEENT: AT/NC, EOMI, PERRLA, mildly dry MM, no carotid bruits or JVD noted. Lungs: CTA bilaterally, moderate effort, mild decrease BL bases, no rales, ronchi or wheezing. Heart: Mildly tachycardic with regular rhythm; no gallop, rub audible. Abdomen: soft, + suprapubic TTP, ND, normal BS, no HSM. Extremities: no cyanosis, clubbing, or edema. Neurological: patient awake, alert, oriented x 3; cognitive function intact; pupils equally reactive to light and accomodation; cranial nerves II-XII grossly normal, moving all 4 extremities, no focal deficits, strength moderately globally decreased secondary to acute presentation. Psychiatric: affect appears normal, fatigued, no acute evidence of depressive or anxiety feelings. - Physical Exam Vital Signs Temp Pulse Resp BP Pulse Ox 102.8 F H 76 20 H 105/46 L 98 09/03/18 23:12 09/04/18 01:20 09/04/18 01:20 09/04/18 01:20 09/04/18 01:20 Oxygen Delivery Method Room Air Weight: 194 lb 14.218 oz Body Mass Index (BMI) 27.9 Finger Stick Blood Glucose 118 Laboratory Tests Past 24 Hrs 09/03/18 09/03/18 09/03/18 00:00 23:45 23:45 WBC 5.2 RBC 2.87 L Hgb 9.3 L Hct 28.6 L MCV 99.7 H MCH 32.4 H MCHC 32.5 RDW 14.1 RDW Differential 50.9 H Plt Count 162 MPV 9.9 Immature Gran % (Auto) 0.000 Neut % (Auto) 70.6 H Lymph % (Auto) 19.0 [place] % (Auto) 9.8 Eos % (Auto) 0.2 Baso % (Auto) 0.4 Absolute Neuts (auto) 3.7 Absolute Lymphs (auto) 0.99 Total Counted Not Reportable PT 15.9 H INR 1.3 Sodium Potassium Chloride Carbon Dioxide Anion Gap BUN Creatinine Estim Creat Clear Calc Est GFR (MDRD) Af Amer Est GFR (MDRD) Non-Af BUN/Creatinine Ratio Glucose Lactic Acid Calcium Total Bilirubin AST ALT Alkaline Phosphatase Troponin I Total Protein Albumin Globulin Albumin/Globulin Ratio Urine Color SEE COMMENT BELOW Urine Clarity Cloudy Urine pH 8.0 Ur Specific [place] 1.010 Urine Protein 100 H Urine Glucose (UA) Normal Urine Ketones Negative Urine Occult Blood 250 H Urine Nitrite Negative Urine Bilirubin Negative Urine Urobilinogen Normal Ur Leukocyte Esterase 500 H Urine RBC 25-50 SEEN Urine WBC 25-50 SEEN Ur Squamous Epith Cells 0-5 SEEN Urine Bacteria 1+ Urine Mucus 0 SEEN 09/03/18 09/03/18 23:45 23:45 WBC RBC Hgb Hct MCV MCH MCHC RDW RDW Differential Plt Count MPV Immature Gran % (Auto) Neut % (Auto) Lymph % (Auto) [place] % (Auto) Eos % (Auto) Baso % (Auto) Absolute Neuts (auto) Absolute Lymphs (auto) Total Counted PT INR Sodium 137 Potassium 3.4 L Chloride 108 H Carbon Dioxide 23.0 Anion Gap 6 BUN 14 Creatinine 0.80 Estim Creat Clear Calc 68.74 Est GFR (MDRD) Af Amer 90 Est GFR (MDRD) Non-Af 75 BUN/Creatinine Ratio 17.4 Glucose 117 H Lactic Acid 0.5 Calcium 10.4 H Total Bilirubin 0.40 AST 17 ALT 21 Alkaline Phosphatase 104 Troponin I < 0.015 Total Protein 6.1 L Albumin 2.9 L Globulin 3.2 Albumin/Globulin Ratio 0.9 Urine Color Urine Clarity Urine pH Ur Specific [place] Urine Protein Urine Glucose (UA) Urine Ketones Urine Occult Blood Urine Nitrite Urine Bilirubin Urine Urobilinogen Ur Leukocyte Esterase Urine RBC Urine WBC Ur Squamous Epith Cells Urine Bacteria Urine Mucus Assessment/Plan All Active Problems Mechanical fall (Acute) UTI (urinary tract infection) (Acute) Fracture of both knees (Acute) Dehydration (Acute) Encephalopathy acute (Acute) Sepsis (Acute) Fever (Acute) The patient is a 73 y/o F w/ PMHx: Chronic Macrocytic Anemia, HTN, HLD, Rheumatoid Arthritis, Anxiety and Depression, Recent history of DVT following L femur fracture 04/2018 who presents to the [facility] ED on 09/04/18 with history of confusion, fatigue, malaise and slurred speech, noted to have recently traveled back from [place] with her . (1) Acute Sepsis secondary to Acute Encephalopathy (Infectious) secondary to Acute Complicated Urinary Tract Infection w/ BL hydroureteronephrosis, 4 mm calculus in the distal left ureter, multiple bilateral nonobstructing calculi w/ BL double Pigtail Stents (placement appears 08/19/18):Febrile, tachycardic, source noted. Will admit to [facility] upon ED evaluation remarkable, pending UCx, admission CBC w/ WBC 5.2 without marked shift, continue IVFs, monitor I/Os, continue IV Rocephin w/ transition as able pending sensitivities and speciation given prior UCx only noting E. Coli pansensitive. Given IV zosyn x 1 in the ED. Bld cx x 2 obtained in the ED. Urology consulted, known to Dr. Joyner, pending with patient noted next visit 09/06/18 for stent removal. (2) Hypokalemia: Admission K+ 3.4, supplementation given, repeat level in AM. (3) Hypertension: Continue home regimen including losartan, PRN hydralazine. (4) Hyperlipidemia: Continue home statin regimen. (5) Chronic Macrocytic Anemia: Admission Hgb 9.3, baseline 10-11, continue folic acid supplementation. (6) Anxiety and depression: Continue home Lexapro regimen. (7) Rheumatoid Arthritis: On Humira and MTX, holding given acute presentation. (8) History of Recent DVT s/p L Femur Fx: 04/2018 femur fracture in [facility] [place] on vacation, s/p repair w/ hardware, continue PT, OT, eliquis. (9) DVT Prophylaxis: peter Kerns. Code Visit Inpatient E&M: 70237 Init Hosp L3
--- NOTE | 2018-09-04 01:59 | ED.VISSUMM ---
- ER Visit Summary Date of Service: 09/04/18 Chief Complaint: Fatigue, weakness, disoriented History of Present Illness: The patient is a 73 F who presents with fatigue, weakness, disorientation. She states this all began today. She did have a ureteral stent placed 2 weeks ago. She complains of some ongoing abdominal discomfort. But denies any significant pain. She states it feels like a bad UTI. She reports nausea without vomiting. She complains of dysuria urgency frequency and hematuria. No fevers that she was aware of. No chest pain shortness of breath cough congestion rhinorrhea. Her weakness is generalized and she has no focal neurological symptoms. Physical Examination: Temperature 102.8 vitals otherwise unremarkable Moist mucous membranes Heart regular rate and rhythm Lungs are clear Abdomen soft Alert oriented no focal or lateralizing neurological deficits Test Results: EKG shows sinus rhythm at a rate of 84. Labs notable for hemoglobin 9.3. No leukocytosis. Lactic acid normal. Troponin negative. Urinalysis consistent with infection with 500 leukocyte esterase, 25-50 WBCs, 25-50 RBCs, 1+ bacteria. Chest x-ray normal. CT of the abdomen pelvis shows bilateral stents in place and bilateral hydroureteronephrosis. Emergency Department Course and Treatment: Patient's initial blood pressure was borderline hypotensive. She had a systolic of 92 at one point. She never had a systolic less than 90 or map less than 65 and lactic acid is normal. She meets sepsis criteria but does not meet criteria for severe sepsis or septic shock. She was empirically treated with IV Zosyn early in her course and treated with patient has been discussed with the hospitalist and will be admitted for further evaluation and management. Treatment Plan: [] Disposition: Admit Impression: Complicated UTI Sepsis syndrome This note was generated with [employer] dictation software. It may contain incorrect words, spelling, and punctuation that were not noted in review of the chart prior to signing ED Disposition - Plan for ED Patient: Chief Complaint: Alt LOC
[2018-09-04] MEDS: Ceftriaxone 1 GM/50 ML BAG IV ×2 (04:00→21:24)
[2018-09-04] MEDS: 0.9% Normal Saline 1,000 ML 125 ML IV ×3 (04:00→20:30)
[2018-09-04 05:45] LABS: Absolute Neutrophil Count 2.4 X10^3/uL (2.0-7.7); Basophil# 0.02 X10^3/uL; Basophil% 0.5 % (0-1); Eosinophil# 0.01 X10^3/uL; Eosinophils% 0.3 % (0-5); Hematocrit 28.2 % (37-47); Lymphocyte % 28.2 % (19-41); Mean Corp Hgb Conc 31.9 g/gl (32-36); Mean Corpuscular Volume 103.3 fL (81-99); Mean Platelet Vol. 10.5 fl (6.2-12.0); Monocyte# 0.34 X10^3/uL; Monocyte% 8.7 % (0-10); Neutrophil # 2.42 X10^3/uL (2.7-7.7); Platelet Count 168 K/mm3 (150-450); RBC Distribution Width CV 13.7 % (11.6-14.6); RBC Distribution Width SD 49.9 fl (35.1-43.9); Red Blood Count 2.73 M/mm3 (4.2-5.4); White Blood Count 3.9 K/mm3 (4.4-11.0)
[2018-09-04 05:47] LABS: POSITIVE COUNT NO; POSITIVE DIFFERENTIAL NO; POSITIVE MORPHOLOGY NO
[2018-09-04 05:51] LABS: Anion Gap 8 (5-15); BUN 14 mg/dL (7-18); BUN/Creat Ratio 15.7 RATIO (10-20); Calcium,Total 10.5 mg/dL (8.5-10.1); Chloride 112 mmol/L (98-107); Creatinine, Serum 0.89 mg/dL (0.55-1.02); EST Glomerular Filtration Rate 66 mL/min (>60); Est Glom Filt Rate - Afr Amer 80 mL/min (>60); Estimated Creatinine Clearance 49.34 ml/min; Glucose 114 mg/dL (74-106); Potassium 3.5 mmol/L (3.5-5.1); Sodium Level 143 mmol/L (136-145)
[2018-09-04] MEDS: APIXABAN 5 MG TABLET PO ×2 (09:09→21:24)
[2018-09-04] MEDS: Escitalopram Oxalate 20 MG Tablet PO (09:09)
[2018-09-04] MEDS: Folic Acid 1 MG Tablet 2 MG PO (09:10)
[2018-09-04] MEDS: Aspirin 81 MG TAB.CHEW PO (09:10)
[2018-09-04] MEDS: Losartan Potassium 50 MG Tablet PO (09:10)
[2018-09-04] MEDS: HYDROcodone Bitartrate/Apap 5/325 Tablet PO ×2 (09:15→21:24)
--- NOTE | 2018-09-04 10:22 | PN_ITS ---
Patient Problems: Active and Suspected Problems Encephalopathy acute (Acute) Sepsis (Acute) Subjective: The patient is a 73-year-old female with a past medical history of macrocytic anemia, hypertension, hyperlipidemia, rheumatoid arthritis (on Humira and methotrexate), anxiety/depression and a recent episode of DVT following a left femur fracture in April 2018. She presented to the emergency department at [facility] on 09/04/2018 with confusion, fatigue and slurred speech. She stated that her urine had been cloudy recently and she had some suprapubic tenderness for the preceding 2 days. Temp in the ER was 102.8 with a heart rate of 93, blood pressure 132/47, respiratory rate of 14 and she was 97% saturated on room air. WBC was 5.2 with 71% neutrophils. Hemoglobin is 9.3 and the platelets were normal at 162,000. MCV was elevated at 99.7 but the RDW was normal at 14.1. Potassium was mildly decreased at 3.4 and the BUN was 14 with a creatinine of 0.8. Calcium was increased at 10.4. The urine had 25-50 RBCs, 25-50 WBCs, 0-5 squamous epithelial cells and 1+ bacteria. Specific gravity was 1.01. Blood and urine cultures were sent from the emergency room. Chest x-ray showed no infiltrates, pulmonary vascular congestion or pleural effusions. A CT scan of the abdomen and pelvis showed bilateral ureteral pigtail catheters with a 3 mm stone in the distal left ureter. There is bilateral hydronephrosis and bilateral hydroureter. A urine culture done in February 2018 was positive for E. coli which was pansensitive. She was given 1 dose of Zosyn in the emergency room and admitted to the hospital by Dr. Hull on ceftriaxone 1 g IV daily. Day #2 ceftriaxone T-max 102.8, current temperature is 100.3?F Heart rate and blood pressure are within normal limits. She is 94-99% saturated on room air. White blood cell count today is low at 3.9 with an unremarkable differential. Hemoglobin is stable at 9.0 and platelets are within normal limits. Lactic acid was 0.5 at admission. PTH has been elevated in the past and patient has hypercalcemia..... Was diagnosed with hyperparathyroidism and did have surgery scheduled but it had to be canceled. She is not currently on medication to decrease her calcium but she does try to force fluids. Denies suprapubic pain today and also denies nausea or vomiting. She has no abdominal pain. She has been up in the chair in her room and denies lightheadedness. No cough and no shortness of breath. Denies dysuria. Objective: PHYSICAL EXAM: GENERAL: alert, oriented X 3, Cooperative, NAD, lying flat in bed with no respiratory difficulty ORAL: Dry mucosa, no mucosal lesions NECK: No JVD, supple, trachea midline, no carotid bruits, carotids have brisk upstroke and good pulse volume bilaterally LUNGS: CTA, symmetric chest expansion HEART: RRR, Normal S1 and S2, no rub, no gallop, no gallop ABDOMEN: soft, NT, ND, BS present, no guarding with palpation, no suprapubic pain with palpation EXTREMITIES: no edema, no cyanosis, no calf tenderness, pedal pulses are 3/3 bilaterally SKIN: No rashes, no breakdown NEUROLOGIC: no focal neurologic deficits PSYCH: appropriate, normal affect, pleasant - Physical Exam Vital Signs Temp Pulse Resp BP Pulse Ox 100.3 F H 98 18 107/43 L 94 09/04/18 09:55 09/04/18 09:55 09/04/18 09:55 09/04/18 09:55 09/04/18 09:55 Oxygen Delivery Method Room Air Weight: 184 lb 15.485 oz Body Mass Index (BMI) 31.7 Finger Stick Blood Glucose 118 Intake and Output for Last 24 Hours 09/02/18 09/03/18 09/04/18 23:59 23:59 23:59 Intake Total 232 / 232 Output Total 400 / 400 Balance -168 / -168 Laboratory Tests Past 24 Hrs 09/03/18 09/03/18 09/03/18 00:00 23:45 23:45 WBC 5.2 RBC 2.87 L Hgb 9.3 L Hct 28.6 L MCV 99.7 H MCH 32.4 H MCHC 32.5 RDW 14.1 RDW Differential 50.9 H Plt Count 162 MPV 9.9 Immature Gran % (Auto) 0.000 Neut % (Auto) 70.6 H Lymph % (Auto) 19.0 [place] % (Auto) 9.8 Eos % (Auto) 0.2 Baso % (Auto) 0.4 Absolute Neuts (auto) 3.7 Absolute Lymphs (auto) 0.99 Total Counted Not Reportable PT 15.9 H INR 1.3 Sodium Potassium Chloride Carbon Dioxide Anion Gap BUN Creatinine Estim Creat Clear Calc Est GFR (MDRD) Af Amer Est GFR (MDRD) Non-Af BUN/Creatinine Ratio Glucose Lactic Acid Calcium Total Bilirubin AST ALT Alkaline Phosphatase Troponin I Total Protein Albumin Globulin Albumin/Globulin Ratio Urine Color SEE COMMENT BELOW Urine Clarity Cloudy Urine pH 8.0 Ur Specific [place] 1.010 Urine Protein 100 H Urine Glucose (UA) Normal Urine Ketones Negative Urine Occult Blood 250 H Urine Nitrite Negative Urine Bilirubin Negative Urine Urobilinogen Normal Ur Leukocyte Esterase 500 H Urine RBC 25-50 SEEN Urine WBC 25-50 SEEN Ur Squamous Epith Cells 0-5 SEEN Urine Bacteria 1+ Urine Mucus 0 SEEN 09/03/18 09/03/18 09/04/18 23:45 23:45 04:41 WBC 3.9 L RBC 2.73 L Hgb 9.0 L Hct 28.2 L MCV 103.3 H MCH 33.0 H MCHC 31.9 L RDW 13.7 RDW Differential 49.9 H Plt Count 168 MPV 10.5 Immature Gran % (Auto) 0.300 Neut % (Auto) 62.0 Lymph % (Auto) 28.2 [place] % (Auto) 8.7 Eos % (Auto) 0.3 Baso % (Auto) 0.5 Absolute Neuts (auto) 2.4 Absolute Lymphs (auto) 1.10 Total Counted Not Reportable PT INR Sodium 137 Potassium 3.4 L Chloride 108 H Carbon Dioxide 23.0 Anion Gap 6 BUN 14 Creatinine 0.80 Estim Creat Clear Calc 68.74 Est GFR (MDRD) Af Amer 90 Est GFR (MDRD) Non-Af 75 BUN/Creatinine Ratio 17.4 Glucose 117 H Lactic Acid 0.5 Calcium 10.4 H Total Bilirubin 0.40 AST 17 ALT 21 Alkaline Phosphatase 104 Troponin I < 0.015 Total Protein 6.1 L Albumin 2.9 L Globulin 3.2 Albumin/Globulin Ratio 0.9 Urine Color Urine Clarity Urine pH Ur Specific [place] Urine Protein Urine Glucose (UA) Urine Ketones Urine Occult Blood Urine Nitrite Urine Bilirubin Urine Urobilinogen Ur Leukocyte Esterase Urine RBC Urine WBC Ur Squamous Epith Cells Urine Bacteria Urine Mucus 09/04/18 04:41 WBC RBC Hgb Hct MCV MCH MCHC RDW RDW Differential Plt Count MPV Immature Gran % (Auto) Neut % (Auto) Lymph % (Auto) [place] % (Auto) Eos % (Auto) Baso % (Auto) Absolute Neuts (auto) Absolute Lymphs (auto) Total Counted PT INR Sodium 143 Potassium 3.5 Chloride 112 H Carbon Dioxide 23.0 Anion Gap 8 BUN 14 Creatinine 0.89 Estim Creat Clear Calc 49.34 Est GFR (MDRD) Af Amer 80 Est GFR (MDRD) Non-Af 66 BUN/Creatinine Ratio 15.7 Glucose 114 H Lactic Acid Calcium 10.5 H Total Bilirubin AST ALT Alkaline Phosphatase Troponin I Total Protein Albumin Globulin Albumin/Globulin Ratio Urine Color Urine Clarity Urine pH Ur Specific [place] Urine Protein Urine Glucose (UA) Urine Ketones Urine Occult Blood Urine Nitrite Urine Bilirubin Urine Urobilinogen Ur Leukocyte Esterase Urine RBC Urine WBC Ur Squamous Epith Cells Urine Bacteria Urine Mucus Medical Necessity - Tobacco Use Smoking Status: Never smoker Tobacco Use: Non-smoker Assessment/Plan All Active Problems Mechanical fall (Acute) UTI (urinary tract infection) (Acute) Fracture of both knees (Acute) Dehydration (Acute) Encephalopathy acute (Acute) Sepsis (Acute) Fever (Acute) Impressions 1. Severe sepsis with acute encephalopathy secondary to complicated upper urinary tract infection/pyelonephritis in a patient on immunosuppressive agents with bilateral hydronephrosis and bilateral hydroureter and BL pigtail catheters in the ureters 2. Nephrolithiasis 3. Hypokalemia-supplemented 4. Rheumatoid arthritis on Humira and methotrexate 5. Hypertension 6. Macrocytic anemia - may have co-existing anemia of CD and increased retic/macrocytosis due to blood loss from hematuria......will also check a hemoccult stool 7. Hypercalcemia with history of elevated PTH 8. Recent history of DVT-on Eliquis 9. leukopenia today - secondary to infection? immunosuppressive agents? Dr. Joyner is on consult.....the stents were placed [address] Joyner and were to be removed tomorrow Continue Rocephin and await the results of blood and urine cultures Check a B12, folate, reticulocyte count, TSH, ionized calcium, PTH........may need medication to aid in decreasing the calcium to prevent further kidney stones until she can have parathyroidectomy Recheck lab in the a.m. Hold methotrexate and Humira in light of acute severe sepsis secondary to upper urinary tract infection?pyelonephritis
[2018-09-04 10:52] LABS: Immature Platelet Fraction 2.3 % (1.0-7.9); RET-HE 29.5 pg (30-35); Reticulocyte Count 1.29 % (0.5-1.5)
[2018-09-04 11:20] LABS: Phosphorus 2.6 mg/dL (2.5-4.9); Thyroid Stim Hormone (TSH) 0.64 uIU/mL (0.358-3.74)
--- NOTE | 2018-09-04 12:21 | CON.PCM_ITS ---
Reason for Consult Date of Consultation: 09/04/18 Reason for Consultation: Status post ureteroscopy and laser of bilateral stones History of Present Illness: The patient is a 73 year old female admitted to the hospital with confusion not feeling well, urine culture was sent off still not back yet, urine dip is positive for blood possible infection she was admitted hydrated and placed on antibiotics currently she is feeling better. Also she had a CAT scan then I reviewed the CAT scan and she is a tiny stone fragment next to the ureter next to the stent on the left side some small fragments in both the kidneys but this point no significant obstruction so will remove the stents today. Past Medical History Past Medical History (Chronic Problems): Chronic Problems History of DVT (deep vein thrombosis) (Chronic) Anemia (Chronic) Nephrolithiasis (Chronic) Anxiety (Chronic) Hyperlipidemia (Chronic) Hypertension (Chronic) Rheumatoid arthritis (Chronic) Allergies Sulfa (Sulfonamide Antibiotics) Allergy (Verified 09/03/18 23:16) Other DOES NOT KNOW REACTION, HAPPENED WHEN 3 YRS OLD codeine Adverse Reaction (Verified 09/03/18 23:16) Nausea tramadol Adverse Reaction (Verified 09/03/18 23:16) Nausea Bee Stings Allergy (Uncoded 09/03/18 23:16) Anaphylaxis Home Medications: Ambulatory Orders Medication Instructions Recorded Atorvastatin Calcium [Lipitor] 10 mg PO DAILY 11/08/13 Apixaban [Eliquis] 5 mg PO BID 30 Days tab 05/23/18 Escitalopram Oxalate [Lexapro] 20 mg PO DAILY 05/23/18 Folic Acid 2 mg PO SUMOTUWETHSA 05/23/18 Hydrocodone/Acetaminophen 1 tab PO BID 05/23/18 [Hydrocodone-Acetamin 5-325 mg] Losartan Potassium 50 mg PO DAILY 05/23/18 Methotrexate 15 mg PO FR 05/23/18 [place]-3S/Dha/Epa/Fish Oil [Fish 1 capsule PO DAILY 05/23/18 Oil 1,200 mg Softgel] Adalimumab [Humira Pen] 40 mg SQ Q14D 09/04/18 Aspirin [Aspirin, Baby] 81 mg PO DAILY@0800 09/04/18 Surgical History: total hip arthroplasty - Bilateral., total knee arthroplasty - Bilateral., tonsillectomy, - - Bone removed from left hip, recent L femur fracture s/p repair with hardware. 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 Paternal History Items: - - Patient denies any marked paternal family history including HD, DM, CA. Review of Systems Constitutional: Denies: Chills, Fever, Weight Change HEENT: Denies: Head Aches, Sinus Congestion, Sinus Drainage Cardiovascular: Denies: Chest Pain, Palpitations Respiratory: Denies: Cough, Shortness of breath at rest, Sputum production Gastrointestinal: Denies: Abdominal Pain, Nausea, Vomiting Genitourinary: Denies: Dysuria Musculoskeletal: Denies: Joint Pain, Joint Tenderness Skin: Denies: Rash, Wounds Neurological: Denies: Numbness, Tingling, Focal weakness Psychiatric: Denies: Anxiety, Depression, Homicidal Ideations, Suicidal Ideations Hematologic/ Lymphatic: Denies: Easy Bruising, Easy Bleeding Physical Exam - Physical Exam Vital Signs Temp 100.3 F H 09/04/18 09:55 Pulse 98 09/04/18 09:55 Resp 18 09/04/18 09:55 BP 107/43 L 09/04/18 09:55 Pulse Ox 94 09/04/18 09:55 Intake & Output 09/02/18 09/03/18 09/04/18 23:59 23:59 23:59 Intake Total 1221 / 1221 Output Total 850 / 850 Balance 371 / 371 Weight: 88.4 kg 83.9 kg Intake: Oral 420 / 420 IV fluid/meds 801 / 801 Output: Urine 850 / 850 Other: Number of Voids 1 General: Alert, Oriented x3 HEENT: Atraumatic Oral: Moist Mucosa Neck: Supple Lungs: Normal air movement Cardiovascular: Regular rate Abdomen: Bowel Sounds Present, Soft Rectal: Exam deferred Laboratory Tests Past 24 Hrs 09/03/18 09/03/18 09/03/18 00:00 23:45 23:45 WBC 5.2 RBC 2.87 L Hgb 9.3 L Hct 28.6 L MCV 99.7 H MCH 32.4 H MCHC 32.5 RDW 14.1 RDW Differential 50.9 H Plt Count 162 MPV 9.9 Immature Gran % (Auto) 0.000 Neut % (Auto) 70.6 H Lymph % (Auto) 19.0 [place] % (Auto) 9.8 Eos % (Auto) 0.2 Baso % (Auto) 0.4 Absolute Neuts (auto) 3.7 Absolute Lymphs (auto) 0.99 Total Counted Not Reportable Immature Plt Fraction Retic Count Immature Retic Fraction Retic Hgb Equivalent PT 15.9 H INR 1.3 Sodium Potassium Chloride Carbon Dioxide Anion Gap BUN Creatinine Estim Creat Clear Calc Est GFR (MDRD) Af Amer Est GFR (MDRD) Non-Af BUN/Creatinine Ratio Glucose Lactic Acid Calcium Phosphorus Magnesium Total Bilirubin AST ALT Alkaline Phosphatase Troponin I Total Protein Albumin Globulin Albumin/Globulin Ratio Vitamin B12 Folate TSH PTH Intact Urine Color SEE COMMENT BELOW Urine Clarity Cloudy Urine pH 8.0 Ur Specific [place] 1.010 Urine Protein 100 H Urine Glucose (UA) Normal Urine Ketones Negative Urine Occult Blood 250 H Urine Nitrite Negative Urine Bilirubin Negative Urine Urobilinogen Normal Ur Leukocyte Esterase 500 H Urine RBC 25-50 SEEN Urine WBC 25-50 SEEN Ur Squamous Epith Cells 0-5 SEEN Urine Bacteria 1+ Urine Mucus 0 SEEN 09/03/18 09/03/18 09/04/18 23:45 23:45 04:41 WBC 3.9 L RBC 2.73 L Hgb 9.0 L Hct 28.2 L MCV 103.3 H MCH 33.0 H MCHC 31.9 L RDW 13.7 RDW Differential 49.9 H Plt Count 168 MPV 10.5 Immature Gran % (Auto) 0.300 Neut % (Auto) 62.0 Lymph % (Auto) 28.2 [place] % (Auto) 8.7 Eos % (Auto) 0.3 Baso % (Auto) 0.5 Absolute Neuts (auto) 2.4 Absolute Lymphs (auto) 1.10 Total Counted Not Reportable Immature Plt Fraction Retic Count Immature Retic Fraction Retic Hgb Equivalent PT INR Sodium 137 Potassium 3.4 L Chloride 108 H Carbon Dioxide 23.0 Anion Gap 6 BUN 14 Creatinine 0.80 Estim Creat Clear Calc 68.74 Est GFR (MDRD) Af Amer 90 Est GFR (MDRD) Non-Af 75 BUN/Creatinine Ratio 17.4 Glucose 117 H Lactic Acid 0.5 Calcium 10.4 H Phosphorus Magnesium Total Bilirubin 0.40 AST 17 ALT 21 Alkaline Phosphatase 104 Troponin I < 0.015 Total Protein 6.1 L Albumin 2.9 L Globulin 3.2 Albumin/Globulin Ratio 0.9 Vitamin B12 Folate TSH PTH Intact Urine Color Urine Clarity Urine pH Ur Specific [place] Urine Protein Urine Glucose (UA) Urine Ketones Urine Occult Blood Urine Nitrite Urine Bilirubin Urine Urobilinogen Ur Leukocyte Esterase Urine RBC Urine WBC Ur Squamous Epith Cells Urine Bacteria Urine Mucus 09/04/18 09/04/18 09/04/18 04:41 04:41 04:41 WBC RBC Hgb Hct MCV MCH MCHC RDW RDW Differential Plt Count MPV Immature Gran % (Auto) Neut % (Auto) Lymph % (Auto) [place] % (Auto) Eos % (Auto) Baso % (Auto) Absolute Neuts (auto) Absolute Lymphs (auto) Total Counted Immature Plt Fraction 2.3 Retic Count 1.29 Immature Retic Fraction 7.10 Retic Hgb Equivalent 29.5 L PT INR Sodium 143 Potassium 3.5 Chloride 112 H Carbon Dioxide 23.0 Anion Gap 8 BUN 14 Creatinine 0.89 Estim Creat Clear Calc 49.34 Est GFR (MDRD) Af Amer 80 Est GFR (MDRD) Non-Af 66 BUN/Creatinine Ratio 15.7 Glucose 114 H Lactic Acid Calcium 10.5 H Phosphorus 2.6 Magnesium 2.0 Total Bilirubin AST ALT Alkaline Phosphatase Troponin I Total Protein Albumin Globulin Albumin/Globulin Ratio Vitamin B12 Folate 18.80 TSH 0.64 PTH Intact Urine Color Urine Clarity Urine pH Ur Specific [place] Urine Protein Urine Glucose (UA) Urine Ketones Urine Occult Blood Urine Nitrite Urine Bilirubin Urine Urobilinogen Ur Leukocyte Esterase Urine RBC Urine WBC Ur Squamous Epith Cells Urine Bacteria Urine Mucus 09/04/18 09/04/18 04:41 04:41 WBC RBC Hgb Hct MCV MCH MCHC RDW RDW Differential Plt Count MPV Immature Gran % (Auto) Neut % (Auto) Lymph % (Auto) [place] % (Auto) Eos % (Auto) Baso % (Auto) Absolute Neuts (auto) Absolute Lymphs (auto) Total Counted Immature Plt Fraction Retic Count Immature Retic Fraction Retic Hgb Equivalent PT INR Sodium Potassium Chloride Carbon Dioxide Anion Gap BUN Creatinine Estim Creat Clear Calc Est GFR (MDRD) Af Amer Est GFR (MDRD) Non-Af BUN/Creatinine Ratio Glucose Lactic Acid Calcium Phosphorus Magnesium Total Bilirubin AST ALT Alkaline Phosphatase Troponin I Total Protein Albumin Globulin Albumin/Globulin Ratio Vitamin B12 Pending Folate TSH PTH Intact Pending Urine Color Urine Clarity Urine pH Ur Specific [place] Urine Protein Urine Glucose (UA) Urine Ketones Urine Occult Blood Urine Nitrite Urine Bilirubin Urine Urobilinogen Ur Leukocyte Esterase Urine RBC Urine WBC Ur Squamous Epith Cells Urine Bacteria Urine Mucus Assessment/Plan All Active Problems Mechanical fall (Acute) UTI (urinary tract infection) (Acute) Fracture of both knees (Acute) Dehydration (Acute) Encephalopathy acute (Acute) Sepsis (Acute) Fever (Acute) 73-year-old female status post bilateral ureteroscopy for obstructing ureteral calculi remove the stent today, continue with antibiotics to see what the cultures grow out, I remove the stents today, she can continue to follow-up with me as an outpatient as planned. I will follow her in in-house hopefully she will improve and be discharged soon today she clinically appears much better than yesterday.
[2018-09-04] MEDS: oxyCODONE 5 MG Tablet PO (15:50)
[2018-09-04] MEDS: Acetaminophen 325 MG Tablet 650 MG PO (15:51)
[2018-09-04] MEDS: Atorvastatin Calcium 10 MG Tablet PO (21:24)
[2018-09-05 03:13] VITALS: BP 138/58; PULSE 77; RESP 16; TEMP 36.8; O2SAT 98
[2018-09-05] MEDS: 0.9% Normal Saline 1,000 ML 125 ML IV ×2 (04:19→12:31)
[2018-09-05 05:58] LABS: Hematocrit 27.4 % (37-47); Hemoglobin 8.8 g/dl (12.0-15.0); Mean Corp Hgb Conc 32.1 g/gl (32-36); Mean Corpuscular Hgb 33.1 pg (27.0-32.0); Mean Platelet Vol. 10.3 fl (6.2-12.0); Platelet Count 160 K/mm3 (150-450); RBC Distribution Width CV 13.9 % (11.6-14.6); RBC Distribution Width SD 49.7 fl (35.1-43.9); Red Blood Count 2.66 M/mm3 (4.2-5.4); White Blood Count 3.5 K/mm3 (4.4-11.0)
[2018-09-05 06:31] LABS: Anion Gap 6 (5-15); BUN 9 mg/dL (7-18); BUN/Creat Ratio 13.1 RATIO (10-20); Calcium,Total 10.3 mg/dL (8.5-10.1); Chloride 113 mmol/L (98-107); Creatinine, Serum 0.69 mg/dL (0.55-1.02); EST Glomerular Filtration Rate 89 mL/min (>60); Est Glom Filt Rate - Afr Amer 108 mL/min (>60); Estimated Creatinine Clearance 43.91 ml/min; Glucose 103 mg/dL (74-106); Potassium 3.4 mmol/L (3.5-5.1); Sodium Level 141 mmol/L (136-145)
[2018-09-05 06:33] LABS: Scan Indicated on CBC? Y/N NO
[2018-09-05 07:51] VITALS: BP 134/74; PULSE 85; RESP 16; TEMP 37; O2SAT 93
[2018-09-05 07:58] VITALS: O2SAT 93
[2018-09-05] MEDS: Folic Acid 1 MG Tablet 2 MG PO (08:05)
[2018-09-05] MEDS: Aspirin 81 MG TAB.CHEW PO (08:05)
[2018-09-05 09:12] LABS: PTHIN 390.3 pg/mL (18.4-80.1)
[2018-09-05 09:50] LABS: Vitamin B12 246 pg/mL (211-911)
--- NOTE | 2018-09-05 09:55 | CASEMGMT ---
RN ALEXANDER Face to Face with patient for initial transition planning/care coordination assessment. RN CM introduced self and role at [facility]. Patient lying in bed, alert and oriented. Patient willing to participate in assessment and is able to answer all questions appropriately. Care providers, pharmacy, and demographics verified. Patient wishes to discharge home, denies need for home health at this time. Patient states she has no further needs or concerns at this time. CM to follow for discharge planning needs that may arise. PCP: Bradley Specialists: Physically Impaired Teacher Preferred Pharmacy: [facility] Insurance: [employer] [facility] Prescription Benefit: [employer] [facility] Living Will/HPOA: Yes, Chuck Decker HPOA LNOK: Living Arrangements: Patient lives with in 2 story house with bed and bath on 1st floor. 3 steps to enter home. Patient independent at home. Transportation: Self of DME/HHC: Patient has cane, walker, wheelchair Disposition Plan: Patient to discharge home with family support and follow-up plans in place. Brook ORELLANAN, RN, CM
[2018-09-05] MEDS: Losartan Potassium 50 MG Tablet PO (10:08)
[2018-09-05] MEDS: APIXABAN 5 MG TABLET PO (10:08)
[2018-09-05] MEDS: Escitalopram Oxalate 20 MG Tablet PO (10:08)
[2018-09-05] MEDS: HYDROcodone Bitartrate/Apap 5/325 Tablet PO (10:08)
--- NOTE | 2018-09-05 12:54 | PCM.DC ---
- Discharge Diagnoses Current Active Problems: Current Active and Chronic Problems (1) Acute Sepsis secondary to Acute Encephalopathy (Infectious) secondary to Acute Complicated Urinary Tract Infection w/ BL hydroureteronephrosis, 4 mm calculus in the distal left ureter, multiple bilateral nonobstructing calculi w/ BL double Pigtail Stents (placement appears 08/19/18) (2) Hypokalemia (3) Hypertension (4) Hyperlipidemia (5) Chronic Macrocytic Anemia (6) Anxiety and depression (7) Rheumatoid Arthritis (8) History of Recent DVT s/p L Femur Fx You will use the following diet at home:: Cardiac Your food should be the consistency of: Regular Your liquids should be the consistency of: Regular/Thin Discharge Activity: Return to Normal Activity, - - Avoid driving if still using narcotic therapies. Call your doctor if you observe: Fever of 101 or Higher, Inability to urinate, Inability to have a bowel movement, Shortness of breath, Dizziness, Fainting spells, Chest pain, Uncontrolled pain Instructions: ED UTI Cystitis Female, Discharge Instructions for Pyelonephritis Allergies/Adverse Reactions: Allergies Sulfa (Sulfonamide Antibiotics) Allergy (Verified 09/03/18 23:16) Other DOES NOT KNOW REACTION, HAPPENED WHEN 3 YRS OLD codeine Adverse Reaction (Verified 09/03/18 23:16) Nausea tramadol Adverse Reaction (Verified 09/03/18 23:16) Nausea Bee Stings Allergy (Uncoded 09/03/18 23:16) Anaphylaxis Medications to take at Discharge Atorvastatin Calcium [Lipitor] 10 mg PO DAILY 11/08/13 Apixaban [Eliquis] 5 mg PO BID 30 Days tab 05/23/18 Escitalopram Oxalate [Lexapro] 20 mg PO DAILY 05/23/18 Folic Acid 2 mg PO SUMOTUWETHSA 05/23/18 Hydrocodone/Acetaminophen [Hydrocodone-Acetamin 5-325 mg] 1 tab PO BID 05/23/18 Losartan Potassium 50 mg PO DAILY 05/23/18 Methotrexate 15 mg PO FR 05/23/18 [place]-3S/Dha/Epa/Fish Oil [Fish Oil 1,200 mg Softgel] 1 capsule PO DAILY 05/23/18 Adalimumab [Humira Pen] 40 mg SQ Q14D 09/04/18 Aspirin [Aspirin, Baby] 81 mg PO DAILY@0800 09/04/18 Cefdinir [Omnicef [equiv]] 300 mg PO Q12H 8 Days #16 capsule 09/05/18 The following prescriptions were given: Cefdinir [Omnicef [equiv]] 300 mg PO Q12H 8 Days #16 capsule Primary Care Physician: Kameron Huerta MD [Primary Care Provider] - Please follow up with your Primary Care Physician in: Follow-up with your PCP within 3-5 days to review admission. Test Results: Test results from this visit will be discussed in further detail at your follow-up appointment, if applicable. Please Follow Up With: Blaine Joyner MD When: Please follow-up as requested or within 3-5 days. Proposed Discharge Date: 09/05/18
--- NOTE | 2018-09-05 12:58 | DCINST_ITS ---
- Discharge Diagnoses Current Active Problems: Current Active and Chronic Problems (1) Acute Sepsis secondary to Acute Encephalopathy (Infectious) secondary to Acute Complicated Urinary Tract Infection w/ BL hydroureteronephrosis, 4 mm calculus in the distal left ureter, multiple bilateral nonobstructing calculi w/ BL double Pigtail Stents (placement appears 08/19/18) (2) Hypokalemia (3) Hypertension (4) Hyperlipidemia (5) Chronic Macrocytic Anemia (6) Anxiety and depression (7) Rheumatoid Arthritis (8) History of Recent DVT s/p L Femur Fx You will use the following diet at home:: Cardiac Your food should be the consistency of: Regular Your liquids should be the consistency of: Regular/Thin Discharge Activity: Return to Normal Activity, - - Avoid driving if still using narcotic therapies. Call your doctor if you observe: Fever of 101 or Higher, Inability to urinate, Inability to have a bowel movement, Shortness of breath, Dizziness, Fainting spells, Chest pain, Uncontrolled pain Instructions: ED UTI Cystitis Female, Discharge Instructions for Pyelonephritis Allergies/Adverse Reactions: Allergies Sulfa (Sulfonamide Antibiotics) Allergy (Verified 09/03/18 23:16) Other DOES NOT KNOW REACTION, HAPPENED WHEN 3 YRS OLD codeine Adverse Reaction (Verified 09/03/18 23:16) Nausea tramadol Adverse Reaction (Verified 09/03/18 23:16) Nausea Bee Stings Allergy (Uncoded 09/03/18 23:16) Anaphylaxis Medications to take at Discharge Atorvastatin Calcium [Lipitor] 10 mg PO DAILY 11/08/13 Apixaban [Eliquis] 5 mg PO BID 30 Days tab 05/23/18 Escitalopram Oxalate [Lexapro] 20 mg PO DAILY 05/23/18 Folic Acid 2 mg PO SUMOTUWETHSA 05/23/18 Hydrocodone/Acetaminophen [Hydrocodone-Acetamin 5-325 mg] 1 tab PO BID 05/23/18 Losartan Potassium 50 mg PO DAILY 05/23/18 Methotrexate 15 mg PO FR 05/23/18 [place]-3S/Dha/Epa/Fish Oil [Fish Oil 1,200 mg Softgel] 1 capsule PO DAILY 05/23/18 Adalimumab [Humira Pen] 40 mg SQ Q14D 09/04/18 Aspirin [Aspirin, Baby] 81 mg PO DAILY@0800 09/04/18 Cefdinir [Omnicef [equiv]] 300 mg PO Q12H 8 Days #16 capsule 09/05/18 The following prescriptions were given: Cefdinir [Omnicef [equiv]] 300 mg PO Q12H 8 Days #16 capsule Primary Care Physician: Kameron Huerta MD [Primary Care Provider] - Please follow up with your Primary Care Physician in: Follow-up with your PCP within 3-5 days to review admission. Test Results: Test results from this visit will be discussed in further detail at your follow- up appointment, if applicable. Please Follow Up With: Blaine Joyner MD When: Please follow-up as requested or within 3-5 days. Proposed Discharge Date: 09/05/18
--- NOTE | 2018-09-05 13:03 | DS.PCM_ITS ---
Discharge Date and Diagnosis - Problem List Patient Problems: Active and Suspected Problems Encephalopathy acute (Acute) Sepsis (Acute) Date of Admission: 09/04/18 Date of Discharge: 09/05/18 - Primary Discharge Diagnosis Active and Suspected Problems (1) Acute Sepsis secondary to Acute Encephalopathy (Infectious) secondary to Acute Complicated Urinary Tract Infection w/ BL hydroureteronephrosis, 4 mm calculus in the distal left ureter, multiple bilateral nonobstructing calculi w/ BL double Pigtail Stents (placement appears 08/19/18) (2) Hypokalemia (3) Hypertension (4) Hyperlipidemia (5) Chronic Macrocytic Anemia (6) Anxiety and depression (7) Rheumatoid Arthritis (8) History of Recent DVT s/p L Femur Fx - Secondary Discharge Diagnosis Chronic Problems History of DVT (deep vein thrombosis) (Chronic) Anemia (Chronic) Nephrolithiasis (Chronic) Anxiety (Chronic) Hyperlipidemia (Chronic) Hypertension (Chronic) Rheumatoid arthritis (Chronic) Hospital Course and Treatment Dr. Joyner urology Operations: None Procedures: EKG, - - Ureteral stent removal x 2. Summary of Care Provided: The patient is a 73 y/o F w/ PMHx: Chronic Macrocytic Anemia, HTN, HLD, Rheumatoid Arthritis, Anxiety and Depression, Recent history of DVT following L femur fracture 04/2018 who presented to the [facility] ED on 09/04/18 with history of confusion, fatigue, malaise and slurred speech, noted to have recently traveled back from [place] with her . She notes having had ongoing hematuria since recent stent placements. She notes she has had more cloudy appearing urine and suprapubic tenderness over the last 2 days in addition. Work-up in the ED included T102.8, heart rate 93, BP 132/47, respiratory rate 14, 97% on room air CBC with WBC 5.2, hemoglobin 9.3 (baseline hemoglobin 10-11), platelet 162 without market left shift, PT 15.9, INR 1.3, CMP with potassium 3.4, chloride 108, BUN/creatinine 14/0.80, glucose 117, lactic acid 0.5, calcium 10.4, troponin <0.015, urinalysis cloudy, 100 protein, occult blood 250, leukocyte esterase 500, RBC 25-50, WBC 25-50, urine bacteria 1+, urine culture and blood culture x2 pending per ED, chest x-ray with no acute findings, CT abdomen and pelvis with bilateral dual pigtail stents in place, bilateral hydroureteronephrosis with a 4 mm calculus in the distal left ureter, multiple bilateral nonobstructing calculi, benign hepatic cyst, altered level degenerative changes of the lumbosacral spine. In the ED patient refrigerator tester normal saline, Zosyn, Tylenol. The patient was admitted to [place], UCx w/ > 100,000 mixed organisms but given presentation still feel consistent with acute infection, continued IV Rocephin w/ transition to cefdinir to complete total 10 days for suspected pyelonephritis as noted. Urology saw and evaluated and and removed her BL stents with planned follow-up in the office. DAY OF DISCHARGE PROGRESS NOTE: Subjective: Patient without acute event overnight per self and nursing report. Patient denies fever, chills, nausea, emesis, abdominal pain, chest pain or dyspnea. She notes suprapubic discomfort has completely resolved and only has mild dysuria if she does not have enough water intake but if she is appropriate dehydrated she states since stents have been removed this is nearly resolved. Patient agreeable to discharge to home with continued antibiotic oral therapy and eager. Patient will be discharged with follow-up with primary care physician within 3-5 days in addition to urology per their discretion. Objective: T 98.6, heart rate 85, BP 134/74, respiratory rate 16, 98% on room air. Physical Examination: General: awake, alert, oriented x 3 and cooperative, seated upright in the bed, NAD. Skin: normal color, turgor, no icterus, cyanosis. HEENT: AT/NC, EOMI, PERRLA, MMM. Lungs: CTA bilaterally, moderate effort, mild decrease BL bases, no rales, ronchi or wheezing; Heart: Regular rate and rhythm; no gallop, rub audible. Abdomen: soft, NTTP, completely resolved suprapubic tenderness noted prior ND, normal BS. Extremities: no cyanosis, clubbing, or edema. Neurological: patient awake, alert, oriented x 3; cognitive function appears intact upon questioning,; pupils equally reactive to light and accomodation; cranial nerves II-XII grossly normal, moving all 4 extremities, strength doubly improved, mildly globally decreased. Psychiatric: affect appears normal, no acute evidence of depressive or anxiety feelings. Assessment and Plan: Please see hospital summary above. Patient Problems: Active and Suspected Problems Encephalopathy acute (Acute) Sepsis (Acute) - Physical Exam Vital Signs Temp Pulse Resp BP Pulse Ox 98.6 F 85 16 134/74 H 93 09/05/18 07:51 09/05/18 07:51 09/05/18 07:51 09/05/18 07:51 09/05/18 07:58 Oxygen Delivery Method Room Air Weight: 184 lb 15.485 oz Body Mass Index (BMI) 31.7 Finger Stick Blood Glucose 118 Intake and Output for Last 24 Hours 09/03/18 09/04/18 09/05/18 23:59 23:59 23:59 Intake Total 2238 / 2238 3589 / 3589 Output Total 1300 / 1300 1600 / 1600 Balance 938 / 938 1988 Microbiology Past 72 Hours 09/03/18 00:00 Urine Culture - Preliminary Urine, Clean Catch Mixed Gram Positive Organisms 09/04/18 14:00 Stool Occult Blood (BIANKA) - Final Stool Laboratory Tests Past 24 Hrs 09/04/18 09/04/18 09/05/18 04:41 04:41 05:35 WBC RBC Hgb Hct MCV MCH MCHC RDW RDW Differential Plt Count MPV Sodium Potassium Chloride Carbon Dioxide Anion Gap BUN Creatinine Estim Creat Clear Calc Est GFR (MDRD) Af Amer Est GFR (MDRD) Non-Af BUN/Creatinine Ratio Glucose Calcium Ionized Calcium Pending Vitamin B12 246 PTH Intact 390.3 H 09/05/18 09/05/18 05:35 05:35 WBC 3.5 L RBC 2.66 L Hgb 8.8 L Hct 27.4 L MCV 103.0 H MCH 33.1 H MCHC 32.1 RDW 13.9 RDW Differential 49.7 H Plt Count 160 MPV 10.3 Sodium 141 Potassium 3.4 L Chloride 113 H Carbon Dioxide 22.0 Anion Gap 6 BUN 9 Creatinine 0.69 Estim Creat Clear Calc 43.91 Est GFR (MDRD) Af Amer 108 Est GFR (MDRD) Non-Af 89 BUN/Creatinine Ratio 13.1 Glucose 103 Calcium 10.3 H Ionized Calcium Vitamin B12 PTH Intact Discharge Activity: Return to Normal Activity, - - Avoid driving if still using narcotic therapies. Call your doctor if you observe: Fever of 101 or Higher, Inability to urinate, Inability to have a bowel movement, Shortness of breath, Dizziness, Fainting spells, Chest pain, Uncontrolled pain Home Medications: Medications to take at Discharge Atorvastatin Calcium [Lipitor] 10 mg PO DAILY 11/08/13 Apixaban [Eliquis] 5 mg PO BID 30 Days tab 05/23/18 Escitalopram Oxalate [Lexapro] 20 mg PO DAILY 05/23/18 Folic Acid 2 mg PO SUMOTUWETHSA 05/23/18 Hydrocodone/Acetaminophen [Hydrocodone-Acetamin 5-325 mg] 1 tab PO BID 05/23/18 Losartan Potassium 50 mg PO DAILY 05/23/18 Methotrexate 15 mg PO FR 05/23/18 [place]-3S/Dha/Epa/Fish Oil [Fish Oil 1,200 mg Softgel] 1 capsule PO DAILY 05/23/18 Adalimumab [Humira Pen] 40 mg SQ Q14D 09/04/18 Aspirin [Aspirin, Baby] 81 mg PO DAILY@0800 09/04/18 Cefdinir [Omnicef [equiv]] 300 mg PO Q12H 8 Days #16 capsule 09/05/18 Following Prescrptions Were Given to Patient: Cefdinir [Omnicef [equiv]] 300 mg PO Q12H 8 Days #16 capsule Primary Care Physician: Kameron Huerta MD [Primary Care Provider] - Please follow up with your Primary Care Physician in: Follow-up with your PCP within 3-5 days to review admission. Please Follow Up With: Blaine Joyner MD When: Please follow-up as requested or within 3-5 days. Patient Instructions: Discharge Instructions for Pyelonephritis, ED UTI Cystitis Female Disposition: Home Minutes spent on discharge:: 35 Patient Condition:: Fair Medical Necessity - Tobacco Use Smoking Status: Never smoker Tobacco Use: Non-smoker Meaningful Use Info Meaningful Use Diagnoses (Choose all that apply): None applicable Code Visit Inpatient E&M: 53342 Disch Hosp
[2018-09-05 13:22] VITALS: BP 107/65; PULSE 67; RESP 16; TEMP 36.7; O2SAT 97
[2018-09-06 07:30] LABS: Bedside Glucose 118 mg/dL (70-110)
--- NOTE | 2018-09-07 10:40 | CASEMGMT ---
MALATHI MUNOZ Discharge Follow-up Phone Call: UZMA: Kacey Strata: 3 Call Date: 09/07/18 Discharge Date: 09/05/18 Time of Call: 1038 Duration: 5 minutes ? Admitting Diagnosis: Sepsis secondary to UTI with bilat. hydroureteronephrosis with calculi This MALATHI MUNOZ contacted pt via telephone in follow-up s/p discharge. Pt denies any further pain, blood in urine, or fever since discharge. States she has been feeling well since discharge. Reports she did obtain her antibiotic medication and has been taking it as directed. States she has an appointment with Dr. Huerta's FUR REPAIRER this afternoon and will schedule an appointment with Dr. Joyner after meeting with the FUR REPAIRER. Pt denied any questions or concerns. Donny Schulte RN
== END 2018-09-05 14:15 | disposition home or self-care (01) | DRG 872 ==
LOC: ED 09-04 01:22 → MS3 09-04 01:57
PROVIDERS: Internal Medicine; Admitting Provider Family Medicine; Emergency Provider Emergency Medicine; Family Provider Family Medicine; PCP Family Medicine; Visit Provider Student in an Organized Health Care Education/Training Program
DX: A41.9 Sepsis, unspecified organism (principal); N13.6 Pyonephrosis; N39.0 Urinary tract infection, site not specified; G93.49 Other encephalopathy; M06.9 Rheumatoid arthritis, unspecified; E87.6 Hypokalemia; E78.5 Hyperlipidemia, unspecified; I10 Essential (primary) hypertension; F32.9 Major depressive disorder, single episode, unspecified; F41.9 Anxiety disorder, unspecified; D53.9 Nutritional anemia, unspecified; Z86.718 Personal history of other venous thrombosis and embolism; Z79.899 Other long term (current) drug therapy; Z79.01 Long term (current) use of anticoagulants; R31.0 Gross hematuria
CPT/HCPCS: 36415; 71045; 74176; 80048; 80053; 81001; 82274; 82330; 82607; 82746; 82962; 83605; 83735; 83970; 84100; 84443; 84484; 85025; 85027; 85045; 85610; 87040; 87086; 87088; 93005; 97161; 97165; 97530; 97802; 99285; J7030; A4216

== ENCOUNTER → 2018-09-12 15:45 | Outpatient (CLI) | payer MEDICARE, SELFPAY ==
[2018-09-04 03:32] VITALS: BMI 31.7
== END ==
PROVIDERS: Family Provider Family Medicine; PCP Family Medicine; Referring Provider Nurse Practitioner Adult Health; Visit Provider Nurse Practitioner Adult Health
DX: R82.998 Other abnormal findings in urine (principal)
CPT/HCPCS: 87086; 87088

== ENCOUNTER 2020-08-26 09:18 | Emergency (ER) | payer MEDICARE, SELFPAY ==
[2018-09-04 03:32] VITALS: BMI 31.7
[2020-08-26 09:22] VITALS: BP 114/48; PULSE 91; RESP 17; TEMP 36.2; O2SAT 98; BMI 30.8
--- NOTE | 2020-08-26 09:41 | ED.DCSUM_ITS ---
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 taking Augmentin. Associated Symptoms: Nasal Congestion, Headache - off and on, mild, Nonproductive cough. Negative for: Sinus Pressure, Nausea, Vomiting, Diarrhea, Shortness of Breath, Chest Pain, Hemoptysis Narrative: Patient has had congestion and cough for about 2 weeks, over the last 3 days she has started to feel worse with worse malaise. No dyspnea. Has had fevers up to 101 or 102. Lives with her who is not ill. Presenting during a peak during the pandemic. Patient presents during the national coronavirus emergency declaration/pandemic. She denies any known contact with anyone infected with COVID-19. She denies traveling out of the immediate area recently. She has no history of heart or lung problems that she knows of. She had a telehealth visit 5 or 6 days ago concerning the symptoms and was prescribed Augmentin, offered a Covid test but she declined it at that time. Now she is more concerned about it. Recent Illness/Hospitalization: No - Past Medical History (1) Anemia Status: Chronic (2) Anxiety Status: Chronic (3) Hyperlipidemia Status: Chronic (4) Hypertension Status: Chronic (5) Nephrolithiasis Status: Chronic (6) Rheumatoid arthritis Status: Chronic Past Medical History - Allergies and Home Meds Allergies/Adverse Reactions: Allergies Sulfa (Sulfonamide Antibiotics) Allergy (Verified 08/26/20 09:18) Other DOES NOT KNOW REACTION, HAPPENED WHEN 3 YRS OLD codeine Adverse Reaction (Verified 08/26/20 09:18) Nausea tramadol Adverse Reaction (Verified 08/26/20 09:18) Nausea Bee Stings Allergy (Uncoded 08/26/20 09:18) Anaphylaxis Primary Care Physician: Kameron Huerta MD [Primary Care Provider] - Surgical History: total hip arthroplasty - Bilateral., total knee arthroplasty - Bilateral., tonsillectomy, - - Bone removed from left hip, recent L femur fracture s/p repair with hardware. Lives: Spouse/ Significant Other Smoking Status: Never smoker - Family History Maternal Family History: Reports: - - Mother with history of lung cancer. Paternal Family History: Reports: - - Patient denies any marked paternal family history including HD, DM, CA. Review of Systems General: Reports: Fever, Malaise. Denies: Chills, Sweats Eyes: Denies: Visual changes - bilaterally, Diplopia ENT: Reports: Rhinorrhea - and nasal congestion. Denies: Bilateral ear pain, Sore throat Cardiovascular: Denies: Chest pain, Palpitations Respiratory: Reports: Cough. Denies: Dyspnea, Sputum, Dyspnea on exertion, Orthopnea Gastrointestinal: Denies: Abdominal pain, Nausea, Vomiting, Diarrhea, Melena, Hematochezia Genitourinary: Denies: Dysuria, Hematuria, Frequency Musculoskeletal: Denies: Myalgias, Neck pain, Back pain, Swelling, Extremity Pain Skin: Denies: Rash, Wounds Neurological: Reports: Headache. Denies: Weakness, Numbness Physical Exam Vital Signs/Narrative: Vital Signs Temp Pulse Resp BP Pulse Ox 08/26/20 09:22 97.2 F L 91 17 114/48 L 98 Inital Vital Signs reviewed: Yes General: Well nourished, Well developed Head: Normocephalic, Atraumatic Eyes: Perrl, EOMI Nose: Normal Inspection. Negative for: Purulent Drainage Mouth/Throat: Airway Patent Neck: Supple, Nontender, No Lymphadenopathy, No Meningismus Cardiovascular: Regular rate, Regular rhythm, No murmurs. Negative for: Tachycardia Respiratory: No distress, CTA bilaterally, Chest nontender Abdomen: Soft, Nontender, Nondistended, Normal bowel sounds Back: Nontender, Normal Inspection. Negative for: CVA tenderness Extremities: Nontender, No edema. Negative for: Calf Tenderness Skin: Normal color, No rash, No Trauma Neurological: Alert, Oriented x3, Cranial nerves II-XII grossly intact, Normal Strength, Normal Sensation, Normal Gait Psychological: Normal affect, Normal Mood Diagnostic/Tx/Re-eval - Medical Decision Making Vital signs are normal, patient is not hypoxic or febrile here. She is well- appearing and has a normal exam. I do suspect she has COVID-19. At this time I cannot explain why her is not ill, it is possible that she had congestion before she contracted Covid and that he is still in the incubation period, or did not contracted from her. Regardless I advised her to isolate herself after we discharge her, assuming that she has it until the test returns. She is comfortable with that plan we discussed reasons to return. She is on Humira, however she is well with normal vital signs and no dyspnea now so I do not think we need to run any other testing given that she clearly has respiratory symptoms and an antibiotic is not helping, making viral etiology is much more likely. She does understand that she could become very ill, and if she has symptoms of dyspnea, too weak to get around, or anything else new she is concerned of, she is encouraged to return to the ER for reevaluation and pulse ox check. Outpatient Covid test sent. ED Disposition - Plan for ED Patient: Disposition: Home or Assisted Living Diagnosis: Viral URI, Suspected COVID-19 virus infection Instructions: ED Upper Resp Infec No Abx Tx Referrals: Kameron Huerta MD [Primary Care Provider] - 1 Week if not improving (Or feeling worse/short of breath, return to the ER) Additional Instructions: You were tested for COVID-19, however it is sent to an offsite laboratory, and will likely take 3-5 days to come back. Reference the pamphlet including with your discharge papers for information on setting up an online portal account to check the results yourself. See attached quarantine information if needed.
[2020-08-26 10:30] VITALS: PULSE 84; RESP 16; O2SAT 98
--- NOTE | 2020-08-26 10:32 | ED.RN ---
THIS NURSE REVIEWED D/C INSTRUCTIONS WITH PT. PT VERBALIZED UNDERSTANDING OF INSTRUCTIONS. PT DENIES FURTHER NEEDS OR QUESTIONS AT THIS TIME. PT AMBULATES FROM ROOM ON OWN WITHOUT ASSISTANCE FROM STAFF
== END 2020-08-26 10:33 | disposition home or self-care (01) ==
LOC: ED 10:03
PROVIDERS: Emergency Provider Emergency Medicine; PCP Family Medicine
DX: J06.9 Acute upper respiratory infection, unspecified (principal); E78.5 Hyperlipidemia, unspecified; I10 Essential (primary) hypertension; M06.9 Rheumatoid arthritis, unspecified; Z79.899 Other long term (current) drug therapy
CPT/HCPCS: 87635; 99282; U0003

== ENCOUNTER 2021-05-19 11:09 | Emergency (ER) | payer MEDICARE, SELFPAY ==
[2021-05-19 11:10] VITALS: BP 195/66; PULSE 64; RESP 18; TEMP 36; O2SAT 98; BMI 32.4
--- NOTE | 2021-05-19 11:47 | VDLE_ITS ---
Reason For Study: Pain RIGHT LEFT GSV is normal. CFV is compressible, spontaneous, phasic, CFV is compressible, spontaneous, phasic, competent, and demonstrates normal competent and demonstrates normal augmentation. augmentation. FV is compressible, spontaneous, phasic, competent and demonstrates normal augmentation. POP V is compressible, spontaneous, phasic, competent and demonstrates normal augmentation. T/P Trunk is compressible. PTV is compressible. RT PerV is compressible. Procedure This is a venous duplex using B-mode, color flow and spectral Doppler. Exam performed portable in ED. A preliminary report was called and/or faxed to Dr. Robles. VL/Venous Duplex US, Unilateral Interpretation Summary Deep veins of the right lower extremity are patent and compressible segmentally . There is no evidence of right lower extremity deep vein thrombosis. Valvular competence gladis ears intact within the proximal deep venous system on the right . The right great saphenous vein a ppears patent and compressible segmentally. Ordering Physician: True Robles Referring Physician: Kameron Huerta Performed By: Kari Cruz, OSMAR, RVT
--- NOTE | 2021-05-19 11:49 | ED.VIS.LOWEX ---
HPI History of Present Illness Chief Complaint: Lower Extremity Injury Detail of Chief Complaint: Right lower extremity pain Informant: patient Onset/Context/Timing Onset: Weeks (1) Context: Gradual Onset Timing: Continuous Quality of Pain: Aching Current Severity: Mild Maximum Severity: Moderate Worsened by: Ambulating Relieved by: Rest Associated Symptoms Associated Symptoms: Positive for Parasthesia (Present in both toes for months, unchanged); Negative for Weakness and Loss of Funtion Narrative Narrative: Patient with spontaneous onset of discomfort in her right calf that has been there for about a week. She states this morning her right thigh started hurting suddenly while she was resting. She had a pulmonary embolus after a femur fracture on the left that was about 3 years ago, she no longer is anticoagulated, and she is concerned maybe she has a DVT which is the main reason she presents to have her right lower extremity evaluated. She states it hurts around into her right buttock as well this morning. She denies any neurologic symptoms radiating down her leg. No back pain or injury otherwise. No bowel or bladder dysfunction/incontinence. [facility] Medical History Femur fracture, left Hypertension Leg fracture, right Rheumatoid arteritis Home Medications atorvastatin 10 mg PO DAILY 11/08/13 [History Last Taken 09/03/18 08:30] escitalopram oxalate 20 mg PO DAILY 05/23/18 [History Last Taken 09/03/18] folic acid 2 mg PO SUMOTUWETHSA 05/23/18 [History Last Taken 09/03/18] losartan 50 mg PO DAILY 05/23/18 [History Last Taken 09/03/18 08:30] methotrexate sodium 15 mg PO FR 05/23/18 [History Last Taken 09/02/18] wtiyw-7t-kgq-epa-fish oil 1 capsule PO DAILY 05/23/18 [History Last Taken 09/03/18 08:30] adalimumab [Humira(CF) Pen] 40 mg SQ Q14D 09/04/18 [History Last Taken 08/25/18] aspirin 81 mg PO DAILY@0800 09/04/18 [History Last Taken 09/03/18 08:30] Antibiotic 08/26/20 [History Last Taken Unknown] calcium carbonate-vitamin D3 2 ea PO DAILY 08/26/20 [History Last Taken Unknown] nitrofurantoin monohyd/m-cryst 100 mg PO BID 05/19/21 [History Last Taken Unknown] Allergy/AdvReac Type Severity Reaction Status Date / Time Sulfa (Sulfonamide Allergy Other Verified 08/26/20 09:18 Antibiotics) codeine AdvReac Nausea Verified 08/26/20 09:18 tramadol AdvReac Nausea Verified 08/26/20 09:18 Bee Stings Allergy Anaphylaxis Uncoded 08/26/20 09:18 Surgical History (Updated 05/19/21 @ 11:18 by Brook Estrada) H/O bilateral hip replacements History of bilateral knee replacement Hx of tonsillectomy Social History Smoking Status: Never smoker ROS ROS ED Constitutional Constitutional ED: Denies chills or fever(s) Musculoskeletal Musculoskeletal: Reports as per HPI, back pain and extremity pain; Denies neck pain Integumentary Denies Abrasions, rash or wounds Neurologic Neurologic: Reports paresthesias RLE (toes) and LLE (toes); Denies weakness EXAM Physical Exam Const Vital Signs: 05/19/21 11:10 Temperature 96.8 F L Temperature Source Temporal Pulse Rate 64 Respiratory Rate 18 Blood Pressure 195/66 H Blood Pressure Mean 109 Pulse Ox 98 Oxygen Delivery Method Room Air Positive well nourished and well developed General Appearance ED: well developed and NAD Neck full ROM and supple Back/Spine normal ROM, normal to inspection, thoraco-lumbar ROM normal and straight leg raise negative bilaterally Back/Spine Narrative: Mild tenderness right buttock, close to ischial tuberosity/SI joint area Extremity normal to inspection, full ROM and no calf tenderness Extremity Narrative: Mild nonpitting edema right lower leg/ankle. No inguinal lymphadenopathy. Mild tenderness right anterior thigh. Nontender greater trochanter. Neuro oriented x3, no focal motor deficits and no sensory deficits noted Sensorium / Orientation: alert Psych mental status grossly normal and thought process normal Skin no wounds Rashes: no rashes MDM MDM MDM Narrative Medical decision making narrative: Preliminary report from the senior telecommunications technician is that there is no sign of any DVT or SVT in the right lower extremity. Patient is reassured this is likely musculoskeletal. I do not think this is sciatica at this time, supportive care advised and follow-up. Discharge Plan Triage Chief Complaint: Lower Extremity Injury ED Provider: True Robles Dx/Rx/DC Orders Clinical Impression: Acute pain of right lower extremity Instructions: ED Muscle Strain, Extremity Prescriptions: No Action atorvastatin 10 MG tablet 10 mg PO DAILY RF: 0 folic acid 1 MG tablet 2 mg PO SUMOTUWETHSA RF: 0 escitalopram oxalate 20 MG tablet 20 mg PO DAILY RF: 0 losartan 50 MG tablet 50 mg PO DAILY RF: 0 methotrexate sodium 2.5 MG tablet 15 mg PO FR RF: 0 yhrdw-2x-pqj-epa-fish oil 1 EACH capsule 1 capsule PO DAILY RF: 0 aspirin 81 MG tablet,chewable 81 mg PO DAILY@0800 RF: 0 adalimumab [Humira(CF) Pen] 40 MG/0.4 ML Pen.Ij.Kit 40 mg SQ Q14D RF: 0 Antibiotic RF: 0 calcium carbonate-vitamin D3 1 EACH tablet 2 ea PO DAILY RF: 0 nitrofurantoin monohyd/m-cryst 100 mg capsule 100 mg PO BID RF: 0 Primary Care Provider: Kameron Huerta Referrals: Kameron Huerta MD [Primary Care Provider] - 1 Week if not improving Disposition Disposition: Home, Self Care
[2021-05-19 12:59] VITALS: RESP 16
== END 2021-05-19 12:59 | disposition home or self-care (01) ==
PROVIDERS: Emergency Provider Emergency Medicine; PCP Family Medicine
DX: M79.604 Pain in right leg (principal); I10 Essential (primary) hypertension; Z79.899 Other long term (current) drug therapy
CPT/HCPCS: 93971; 99282

== ENCOUNTER 2021-08-26 05:30 | Day surgery (SDC) | payer MEDICARE, SELFPAY ==
[2021-08-26] VITALS (8 sets, daily range): BP systolic 92–128; BP diastolic 49–75; PULSE 55–84; RESP 16–18; TEMP 36.4–36.8; O2SAT 96–99; BMI 30.7
--- NOTE | 2021-08-26 | COLBX_PTH ---
PATIENT: JASVIR TROTTER LOC: EN U#:[id number] AGE/SX: 76/F ROOM: RE08/26/[address]: Dr. Jimy Solis MD : 1945 BED: DIS: 08/26/2021 SPEC #: [id number] RECD: 08/26/21 13:25 STATUS: ALAINA AL #: [id number] ALE: 08/26/21 00:[address]: Jimy Solis DEPT: SURGICAL PATHOLOGY RECD BY: Jose F Haynes ENTERED: 08/26/21 13:26 SP TYPE: COLON BX OTHR DR: Dr. Kameron Huerta MD Tissues: COLON BIOPSY Procedures: Surgery Specimen Level IV HEADER OPERATION: Colonoscopy (MAC) PRE-OP DIAGNOSIS: Change in bowel habit; history of colonic polyps TISSUE SUBMITTED: Random colon biopsies MICROSCOPIC DIAGNOSIS Colon, random biopsy: Fragments of colonic mucosa, no pathologic diagnosis. SJ:lina 08/27/2021 MICROSCOPIC DESCRIPTION Slides are reviewed. GROSS DESCRIPTION Received in fixative is one container labeled with the patient's name and designated random colon biopsy. The specimen consists of multiple irregular fragments of light liz soft tissue that in aggregate measure 1.5 x 0.7 x 0.1 cm. The specimen is totally submitted in one cassette. / KARLY:lina 08/26/21 TC:4 CPT: 70732
--- NOTE | 2021-08-26 05:53 | HP.PCM_ITS ---
History and Physical Date of Admission: 08/26/21 Intake Visit Reasons: C-Scope Accompanied by: Is patient in pain?: No Allergies Sulfa (Sulfonamide Antibiotics) Allergy (Verified 08/15/21 14:45) Other codeine Adverse Reaction (Verified 08/15/21 14:45) Nausea tramadol Adverse Reaction (Verified 08/15/21 14:45) Nausea Bee Stings Allergy (Uncoded 08/26/20 09:18) Anaphylaxis Medications atorvastatin 10 mg PO DAILY 11/08/13 [History Confirmed 08/15/21] escitalopram oxalate 20 mg PO DAILY 05/23/18 [History Confirmed 08/15/21] folic acid 2 mg PO SUMOTUWETHSA 05/23/18 [History Confirmed 08/15/21] losartan 50 mg PO DAILY 05/23/18 [History Confirmed 08/15/21] methotrexate sodium 15 mg PO FR 05/23/18 [History Confirmed 08/15/21] nukyb-6y-tnn-epa-fish oil 1 capsule PO DAILY 05/23/18 [History Confirmed 08/15/21] adalimumab [Humira(CF) Pen] 40 mg SQ Q14D 09/04/18 [History Confirmed 08/15/21] aspirin 81 mg PO DAILY@0800 09/04/18 [History Confirmed 08/15/21] Antibiotic 08/26/20 [History Confirmed 08/15/21] calcium carbonate-vitamin D3 2 ea PO DAILY 08/26/20 [History Confirmed 08/15/21] nitrofurantoin monohyd/m-cryst 100 mg PO BID 05/19/21 [History Confirmed 08/15/21] PFSH Medical History Femur fracture, left Hypertension Leg fracture, right Rheumatoid arteritis Surgical History (Updated 05/19/21 @ 11:18 by Brook Estrada) H/O bilateral hip replacements History of bilateral knee replacement Hx of tonsillectomy Social History Smoking Status: Never smoker HPI HPI HPI: JASVIR TROTTER, is a 76 F who presents to the office today for surgical consultation regarding a colonoscopy. The patient is referred by Dr. Kameron Huerta and a written copy of my surgical consult recommendations will return to him. Patient is noting some looser bowel movements.. She has rheumatoid arthritis she is on Humira and methotrexate and folic acid and prednisone. She has had a previous colonoscopy April 2015. She has a known history of diverticulosis. My previous procedure note of May 02, 2015 because of acute change in bowel habits included a combined upper and lower endoscopy. [place] that there was minimal distal esophagitis may be Marion's. Normal-appearing stomach and duodenum. There was extensive sigmoid diverticulosis with a slight focal 5 mm mucosal change of the ascending colon. Pathology showed gastritis. GE junction showed chronic inflammation. There were focal changes suggestive intestinal metaplasia. The ascending colon lesion was a tubular adenoma. She is had a recent change in bowel habits past couple weeks looser stools. There is some mucus in the stools. No abdominal pain. No unexpected weight loss. She has had a remote history of pulmonary embolus but that was subsequent to leg surgery. She is not on any anticoagulants. For her rheumatoid arthritis she is supposed to get a intravenous effusion August 27 Exam Const General: cooperative, healthy appearing, comfortable and no acute distress Nutritional Appearance: overweight Orientation: alert and awake [facility] Head: normal to inspection Eyes General: appearance normal, both eyes and all related structures Chest Chest palpation & inspection: normal inspection of the chest Resp Effort & Inspection: normal respiratory effort Cardio Rate: regular rate Rhythm: regular rhythm GI Palpation: soft and no hepatosplenomegaly Skin General: no rashes or lesions noted Neuro General: patient alert and patient awake Extrem General: no calf tenderness Psych Appearance: grossly normal Judgment: judgment good Assessment and Plan Assessment and Plan (1) Change in bowel habit: Status: Acute (2) Personal history of colonic polyps: Status: Acute Plan - Dr. Jimy Solis MD: I recommend to the patient colonoscopy with possible biopsy or polypectomy as indicated. She has had an opportunity ask and have questions answered. We will schedule procedure at her discretion. I appreciate the opportunity of assisting with her surgical care Copy: Dr. Kameron Solis M.D., F.A.C.S. I have re-examined the patient. There are no clinical changes since date of exam. Jimy Solis M.D., F.A.C.S.
[2021-08-26] MEDS: Lactated Ringers 1,000 ML 15 ML IV (06:37)
--- NOTE | 2021-08-26 06:53 | OP.CCLET_ITS ---
08/26/2021 Kameron Huerta [address] [place] [address] Re : Colonoscopy procedure for Christine Curielbari Dear Dr. Huerta This procedure was performed on Thursday, August 26, 2021. My impressions and recommendations are as follows: Impressions : - Non-thrombosed external hemorrhoids, non-thrombosed internal hemorrhoids and internal hemorrhoids that prolapse with straining, but spontaneously regress to the resting position (Grade II) found on digital rectal exam. - Diverticulosis in the sigmoid colon and in the descending colon. - The examination was otherwise normal. - Biopsies were taken with a cold forceps from the entire colon for evaluation of microscopic colitis. Recommendations : - Discharge patient to home. - Resume previous diet. - Continue present medications. - Telephone my office for pathology results in 1 week. - Repeat colonoscopy is not recommended due to current age (66 years or older) for screening purposes. My findings are described in the full procedure note, which is enclosed. If I can be of further assistance, please feel free to contact me at Doctor phone number(s): Work: . Sincerely, Jimy Solis MD 08/26/2021 6:52:47 AM This report has been signed electronically.
--- NOTE | 2021-08-26 06:53 | OP.COLON_ITS ---
Patient Name: Christine Decker Procedure Date: 08/26/2021 6:11 AM Date of : 1945 Age: 76 Procedure: Colonoscopy Indications: Change in bowel habits Providers: Jimy Solis MD Medicines: See the Anesthesia note for documentation of the administered medications Patient Profile: Last Colonoscopy: 2014. Complications: No immediate complications. Procedure: Pre-Anesthesia Assessment: - Prior to the procedure, a History and Physical was performed, and patient medications and allergies were reviewed. The patient's tolerance of previous anesthesia was also reviewed. The risks and benefits of the procedure and the sedation options and risks were discussed with the patient. All questions were answered, and informed consent was obtained. Prior Anticoagulants: The patient has taken no previous anticoagulant or antiplatelet agents. ASA Grade Assessment: II - A patient with mild systemic disease. After reviewing the risks and benefits, the patient was deemed in satisfactory condition to undergo the procedure. After I obtained informed consent, the scope was passed under direct vision. Throughout the procedure, the patient's blood pressure, pulse, and oxygen saturations were monitored continuously. The Colonoscope was introduced through the anus and advanced to the cecum, identified by appendiceal orifice and ileocecal valve. The colonoscopy was performed without difficulty. The patient tolerated the procedure well. The quality of the bowel preparation was good. The ileocecal valve and the appendiceal orifice were photographed. Scope In: 6:29:17 AM Scope Withdrawal Time 0 hours 8 minutes 29 seconds Scope Out: 6:47:41 AM Total Procedure Duration Time 0 hours 18 minutes 24 seconds Findings: The digital rectal exam findings include non-thrombosed external hemorrhoids, non-thrombosed internal hemorrhoids and internal hemorrhoids that prolapse with straining, but spontaneously regress to the resting position (Grade II). Multiple diverticula were found in the sigmoid colon and descending colon. Biopsies for histology were taken with a cold forceps from the entire colon for evaluation of microscopic colitis. The exam was otherwise without abnormality. Impression: - Non-thrombosed external hemorrhoids, non-thrombosed internal hemorrhoids and internal hemorrhoids that prolapse with straining, but spontaneously regress to the resting position (Grade II) found on digital rectal exam. - Diverticulosis in the sigmoid colon and in the descending colon. - The examination was otherwise normal. - Biopsies were taken with a cold forceps from the entire colon for evaluation of microscopic colitis. Recommendation: - Discharge patient to home. - Resume previous diet. - Continue present medications. - Telephone my office for pathology results in 1 week. - Repeat colonoscopy is not recommended due to current age (66 years or older) for screening purposes. Procedure Code(s): --- Professional --- 48560, Colonoscopy, flexible; with biopsy, single or multiple Diagnosis Code(s): --- Professional --- K64.1, Second degree hemorrhoids K64.4, Residual hemorrhoidal skin tags R19.4, Change in bowel habit K57.30, Diverticulosis of large intestine without perforation or abscess without bleeding CPT copyright 2017 [employer]. All rights reserved. The codes documented in this report are preliminary and upon operations manager/coordinator review may be revised to meet current compliance requirements. Jimy Solis MD 08/26/2021 6:52:47 AM This report has been signed electronically. Number of Addenda: 0 Note Initiated On: 08/26/2021 6:11 AM
== END 2021-08-26 07:50 | disposition home or self-care (01) ==
LOC: EN 05:30 → AC 05:31
PROVIDERS: PCP Family Medicine; Referring Provider Family Medicine; Visit Provider Surgery
PROC: 0DJD8ZZ Inspection of Lower Intestinal Tract, Via Natural or Artificial Opening Endoscopic (ICD-10-PCS; CPT 45378; principal; 2021-08-26 06:25)
DX: K57.30 Diverticulosis of large intestine without perforation or abscess without bleeding (principal); K64.1 Second degree hemorrhoids; M06.9 Rheumatoid arthritis, unspecified; I10 Essential (primary) hypertension; E78.00 Pure hypercholesterolemia, unspecified; Z79.52 Long term (current) use of systemic steroids; Z79.899 Other long term (current) drug therapy; Z86.010 Personal history of colon polyps
CPT/HCPCS: 45380; 88305; J7120

== ENCOUNTER 2022-02-21 08:16 | Emergency (ER) | payer MEDICARE, SELFPAY ==
[2022-02-21 08:17] VITALS: BP 152/92; PULSE 81; RESP 20; TEMP 37.2; O2SAT 97; BMI 32.1
--- NOTE | 2022-02-21 08:33 | EKG12_ITS ---
Test Reason : CP Blood Pressure : / mmHG Vent. Rate : 078 BPM Atrial Rate : 078 BPM P-R Int : 162 ms QRS Dur : 088 ms QT Int : 396 ms P-R-T Axes : -15 092 045 degrees QTc Int : 451 ms Sinus rhythm with occasional Premature ventricular complexes Otherwise normal ECG Confirmed by WESLEY JEAN, AVIS ([id number]), assistant film editor SALTY GREGORY ([id number]) on 02/23/2022 1:54:09 PM Referred By: ROCK Confirmed By:AVIS OLSON MD
[2022-02-21 08:34] VITALS: O2SAT 99
--- NOTE | 2022-02-21 08:34 | RAD_ITS ---
STUDY: X-RAY CHEST REASON FOR EXAM: Female, 76 years old. chest pain LEFT SHOULDER PAIN RADIATING INTO BACK STARTING AT 0400 TODAY HX OF MITRAL VALVE PROLAPSE, HTN AND PULMONARY EMBOLISM TECHNIQUE: Single AP portable view of the chest. COMPARISON: September 03, 2018 FINDINGS: The lungs are clear and expanded. There is no demonstrated pleural abnormality. Normal size heart. Normal mediastinum and katei. Normal visualized pulmonary arteries. Normal visualized aortic arch and descending thoracic aorta. There are diffuse degenerative changes of the visualized thoracic spine. There is degenerative osteoarthritis of the bilateral shoulders. There is no demonstrated abnormality of the visualized soft tissue structures of the upper abdomen. RAD/Chest 1 View (Portable) IMPRESSION: Degenerative changes, as described above. No demonstrated acute cardiopulmonary process. Electronically Signed: Domenico Pardo MD at 8:57 EDT ,
--- NOTE | 2022-02-21 08:35 | ED.VIS.CHEST ---
HPI History of Present Illness Chief Complaint: Chest Pain Detail of Chief Complaint: Left posterior shoulder and upper back pain Informant: patient Onset/Context/Timing Onset: Today Activity at onset: gradual Timing: Continuous Quality: Positive for Aching Current Severity: Mild Maximum Severity: Mild Worsened By: Movement of Arm and Movement of Torso Relieved By: Nothing Associated Symptoms: Negative for Nausea, Vomiting, Diaphoresis, Dyspnea, Cough, Fever, Lightheadedness, Acid Reflux and Palpitations Narrative Narrative: 76-year-old female history of prior PE post femur fracture surgery 4 years ago. She is no longer on blood thinners. No cardiac history. Also history of rheumatoid arthritis. Flew back from a trip to [place] recently. Also was yesterday lifting about a 30 pound box. This morning around 430 she awoke with left posterior shoulder and upper neck and back pain. Denies any fall injury or trauma. No shortness of breath. No exertional symptoms. No hemoptysis. There is really no specific chest pain its more posterior shoulder upper back and left lateral neck pain. Prior Similar Symptoms: No Recent Illness/Hospitalization: No CVD Risk Factors: Negative for Hypertension PE Risk Factors: Positive for Recent Travel/Surgery and Prior DVT or PE; Negative for Cancer and OCP + Smoking + >/=35 TAD Risk Factors: Negative for Marfan's Syndrome [facility] Medical History Arthritis Femur fracture, left High cholesterol Hypertension Leg fracture, right Mitral valve prolapse Pulmonary embolism Pulmonary embolism Rheumatoid arteritis Wears glasses Home Medications atorvastatin [Lipitor] 10 mg PO DAILY 11/08/13 [History Last Taken 09/03/18 08:30] escitalopram oxalate [Lexapro] 20 mg PO DAILY 05/23/18 [History Last Taken 09/03/18] folic acid 2 mg PO SUMOTUWETHSA 05/23/18 [History Last Taken 09/03/18] losartan [Cozaar] 100 mg PO DAILY 05/23/18 [History Last Taken 09/03/18 08:30] methotrexate sodium 15 mg PO FR 05/23/18 [History Last Taken 09/02/18] calcium carbonate-vitamin D3 2 ea PO DAILY 08/26/20 [History Last Taken Unknown] Allergy/AdvReac Type Severity Reaction Status Date / Time Sulfa (Sulfonamide Allergy Other Verified 02/21/22 08:16 Antibiotics) codeine AdvReac Nausea Verified 02/21/22 08:16 tramadol AdvReac Nausea Verified 02/21/22 08:16 Bee Stings Allergy Anaphylaxis Uncoded 02/21/22 08:16 Surgical History H/O bilateral hip replacements History of bilateral knee replacement Hx of parathyroidectomy Hx of tonsillectomy Social History Smoking Status: Never smoker ROS ROS ED ROS Narrative Denies recent illness. Review of Systems ROS Unobtainable: Denies due to encephalopathy Constitutional Constitutional ED: Denies fever(s) Eyes Eyes: Denies none ENT ENT ED: Denies ear pain Cardiovascular Cardiovascular: Denies as per HPI Respiratory/Chest Respiratory/Chest: Denies dyspnea Gastrointestinal Gastrointestinal: Denies abdominal pain Genitourinary Genitourinary ED: Denies dysuria Musculoskeletal Musculoskeletal: Reports back pain, myalgias and neck pain; Denies arthralgias Integumentary Denies rash Neurologic Neurologic: Denies headache(s) Psychiatric Psychiatric: Denies depression Endocrine Endocrinology: Denies polyuria Hematologic/Lymphatic Hematologic/Lymphatic: Denies easy bruising Allergic/Immunologic Allergic/Immunologic ED: Denies urticaria EXAM Physical Exam Narrative Exam Narrative: 71 yo female in no acute distress. Vital signs stable afebrile. Pulse ox 97% on room air no signs of hypoxia. H EENT exam unremarkable. Neck left lateral and base of the neck soft tissue tenderness. Full range of motion. Lungs are clear. Heart regular rhythm no murmur. Chest wall nontender. Abdomen soft nontender. Back is tender left posterior shoulder and trapezius distribution. I think this is musculoskeletal etiology. Moving all 4 extremities. Equal symmetrical radial pulses. Calves are nontender without edema or cords. Neurologically she is awake and alert. No focal motor deficits. Const Vital Signs: 02/21/22 08:17 02/21/22 08:20 02/21/22 08:34 Temperature 99.0 F Temperature Source Temporal Pulse Rate 81 Respiratory Rate 20 H Respiratory Effort Short of Breath Respiratory Pattern Normal Blood Pressure 152/92 H Blood Pressure Mean 112 Pulse Ox 97 99 Oxygen Delivery Method Room Air Room Air 02/21/22 09:28 Temperature Temperature Source Pulse Rate 75 Respiratory Rate 16 Respiratory Effort Respiratory Pattern Blood Pressure 151/72 H Blood Pressure Mean 98 Pulse Ox 100 Oxygen Delivery Method Room Air Positive well nourished and well developed; Negative for cachectic, contractures or unkempt General Appearance ED: well developed and NAD; Negative for unkempt, cachectic, contractures or pallor Nutritional Appearance: Negative for cachectic HEENT Reports moist mucous membranes normocephalic and atraumatic; Negative for trauma or tenderness Eyes PERRL and EOMs intact bilaterally General Eye ED: Negative for pale conjunctiva Neck no lymphadenopathy, supple and no JVD Neck Narrative: Left posterior tenderness to the soft tissue of her neck. General: tenderness Chest Wall inspection of chest normal and palpation of chest normal Resp normal respiratory effort and clear to auscultation bilaterally Effort and Inspection: respiratory distress Auscultation: Negative for rales, rhonchi or wheezes Cardio regular rate, regular rhythm, S1 normal heart sound and S2 normal heart sound GI normal to inspection, nondistended, normoactive bowel sounds, soft to palpation, non-tender, non-distended and no masses Back/Spine no CVA tenderness and no thoracic nor lumbar tenderness General Back: Negative for CVA tenderness Extremity normal to inspection General Extremety ED: Negative for edema or tenderness General Extremity: Negative for edema Neuro oriented x3 Sensorium / Orientation: awake, alert, oriented to person, oriented to place and oriented to time Motor Exam: strength 5/5 throughout Psych mental status grossly normal Appearance: Negative for unkempt Attitude: No agitated Mood & Affect: Negative for depressed or tearful Skin no rashes or lesions noted and no wounds General Skin Exam: Negative for jaundice or pallor Heart Score History: Slightly/Non-Suspicious ECG: Normal Age: >/= 65 years Risk Factors: No Risk Factors Troponin: </= Normal Limit Score: 2 MDM MDM MDM Narrative Medical decision making narrative: 76-year-old with upper back and neck musculoskeletal pain. Clinically I think this is all musculoskeletal I do not think this is cardiac. I do not think it is a PE. Explained to the and the patient. Patient is concerned of something more serious or cardiac work-up be performed but I do not think that is the cause of this pain. She was offered Tylenol or Motrin for pain and declined. Repeat exam patient is doing well at 930. She has been given some Tylenol for discomfort. We went over her test results. Clinically this is musculoskeletal etiology. Hot shower warm bath. Massage. Tylenol Motrin. Follow-up if not improving. Lab Data Attestation: I reviewed the patient's lab results. Lab results narrative: CBC shows a white count of 7 H&H 11 and 33. Platelets 167. Electrolytes show a potassium of 3.3. Gap of 6 normal BUN and creatinine of 14 and 1. Troponin is 5. Labs: Laboratory Results - last 24 hr 02/21/22 02/21/22 08:25 08:25 WBC 7.7 RBC 3.31 L Hgb 11.0 L Hct 33.7 L MCV 101.8 H MCH 33.2 H MCHC 32.6 RDW Std Deviation 52.0 H RDW Coeff of Edward 14.1 Plt Count 167 MPV 10.1 Immature Gran % (Auto) 0.300 Neut % (Auto) 69.6 Lymph % (Auto) 20.2 [place] % (Auto) 7.1 Eos % (Auto) 2.3 Baso % (Auto) 0.5 Absolute Neuts (auto) 5.4 Absolute Lymphs (auto) 1.56 Nucleated RBC % 0 Sodium 140 Potassium 3.3 L Chloride 106 Carbon Dioxide 28.0 Anion Gap 6 BUN 14 Creatinine 1.01 Estim Creat Clear Calc 43.31 Est GFR (MDRD) Af Amer 69 Est GFR (MDRD) Non-Af 57 L BUN/Creatinine Ratio 13.9 Glucose 111 H Calcium 9.2 Troponin I High Sens 5 Radiography Chest X-Ray - ED: 1 View, Read by ED Physician, Lungs, Mediastinum, Bony Structures, No Acute Disease, Chronic Changes, Cardiomegaly, CHF and No Infiltrates Diagnostic Testing: Clinical Impression(s) from Imaging Studies Chest X-Ray 02/21/22 08:34 IMPRESSION: Degenerative changes, as described above. No demonstrated acute cardiopulmonary process. Electronically Signed: Domenico Pardo MD at 8:57 EDT , Chest x-ray, portable, single view interpreted myself the radiologist shows no acute abnormality. Normal cardiac silhouette. Normal mediastinum. Normal lung ricks. Rhythm Strip Rhythm Strip: Sinus Rhythm Rate: 78 Ectopy: None EKG Initial EKG: Attestation: I personally reviewed and interpreted this EKG as follows: Interpretation: Sinus Rhythm and No Acute Injury Pattern Comments: Normal sinus rhythm rate is 78 no acute signs of ND nor ischemia. Normal EKG. Discharge Plan Triage Chief Complaint: Chest Pain ED Provider: Keanu Phillips Dx/Rx/DC Orders Clinical Impression: Back pain, Muscle strain Instructions: ED Back Sprain/Strain Prescriptions: No Action atorvastatin [Lipitor] 10 MG tablet 10 mg PO DAILY RF: 0 folic acid 1 MG tablet 2 mg PO SUMOTUWETHSA RF: 0 escitalopram oxalate [Lexapro] 20 MG tablet 20 mg PO DAILY RF: 0 losartan [Cozaar] 50 MG tablet 100 mg PO DAILY RF: 0 methotrexate sodium 2.5 MG tablet 15 mg PO FR RF: 0 calcium carbonate-vitamin D3 1 EACH tablet 2 ea PO DAILY RF: 0 Primary Care Provider: Kameron Huerta Referrals: Kameron Huerta MD [Primary Care Provider] - 10-14 Days if not better Activity Restrictions/Additional Instructions: Hot shower, warm bath and massage to relax the muscle in your upper back. Motrin for pain and inflammation. Tylenol for pain. This should progressively improve. If not follow-up with your doctor. Disposition Disposition: Home, Self Care
[2022-02-21 08:41] LABS: Absolute Lymphocyte Count 1.56 X10^3/uL (0.83-4.51); Absolute Neutrophil Count 5.4 X10^3/uL (2.0-7.7); Basophil# 0.04 X10^3/uL; Basophil% 0.5 % (0-1); Eosinophil# 0.18 X10^3/uL; Eosinophils% 2.3 % (0-5); Hematocrit 33.7 % (37-47); Lymphocyte # 1.56 X10^3/ul (0.83-4.51); Lymphocyte % 20.2 % (19-41); Mean Corp Hgb Conc 32.6 g/dL (32-36); Mean Corpuscular Hgb 33.2 pg (27.0-32.0); Mean Corpuscular Volume 101.8 fL (81-99); Mean Platelet Vol. 10.1 fl (6.2-12.0); Monocyte# 0.55 X10^3/uL; Monocyte% 7.1 % (0-10); NRBC Flagged by Analyzer 0 % (0-5); Neutrophil # 5.38 X10^3/uL (2.7-7.7); Neutrophil % 69.6 % (47-70); Platelet Count 167 K/mm3 (150-450); RBC Distribution Width CV 14.1 % (11.6-14.6); Red Blood Count 3.31 M/mm3 (4.2-5.4); White Blood Count 7.7 K/mm3 (4.4-11.0)
[2022-02-21 08:57] LABS: Anion Gap 6 (5-15); BUN 14 mg/dL (7-18); BUN/Creat Ratio 13.9 RATIO (10-20); Calcium,Total 9.2 mg/dL (8.5-10.1); Chloride 106 mmol/L (98-107); Creatinine, Serum 1.01 mg/dL (0.55-1.02); EST Glomerular Filtration Rate 57 mL/min (>60); Est Glom Filt Rate - Afr Amer 69 mL/min (>60); Estimated Creatinine Clearance 43.31 ml/min; Glucose 111 mg/dL (74-106); Potassium 3.3 mmol/L (3.5-5.1); Sodium Level 140 mmol/L (136-145); Troponin-I HS (w/2H Reflex) 5 pg/mL (3.0-54.0)
[2022-02-21 09:28] VITALS: BP 151/72; PULSE 75; RESP 16; O2SAT 100
[2022-02-21] MEDS: Acetaminophen 325 MG Tablet 650 MG PO (09:31)
[2022-02-21 10:38] LABS: Reflex Troponin-HS? (from REC) Y
== END 2022-02-21 09:53 | disposition home or self-care (01) ==
PROVIDERS: Emergency Provider Emergency Medicine; PCP Family Medicine; Visit Provider Emergency Medicine
DX: M54.9 Dorsalgia, unspecified (principal); M06.9 Rheumatoid arthritis, unspecified; I10 Essential (primary) hypertension; E78.00 Pure hypercholesterolemia, unspecified; M25.512 Pain in left shoulder; M19.90 Unspecified osteoarthritis, unspecified site; Z86.711 Personal history of pulmonary embolism; Z79.899 Other long term (current) drug therapy
CPT/HCPCS: 71045; 80048; 84484; 85025; 93005; 99285; A4216

== ENCOUNTER 2022-12-18 08:30 | Outpatient (RCR) | payer MEDICARE, SELFPAY ==
--- NOTE | 2022-12-03 10:36 | HP.PTEVAL_ITS ---
Patient's Visit Information JASVIR TROTTER is a 77 year old F referred to Physical Therapy by Dr. Taz Hagan DO with a diagnosis of LUMBAGO WITH SCIATICA ,RIGHT SIDE. Date of Evaluation: 12/03/22 Physical Therapist: Kendrick Berrios, PT, Cert MDT, OCS - Visit Plan Frequency: 2x /Week Duration: 4 Weeks Plan: PT INTEERVETIONS DLS ,POSTURAL EX'S ,FLEXABILITY AND MOD ALTIES NEEDED - Subjective This 77 y/o female presents to physical therapy with leg pain. Patient has h/o leg symptoms for many years. Most recently ,developed 6 months ago with intermittent symptoms. Seen DR Hagan provided gabapentin and x-rays DDD. Location of symptoms lateral leg to foot. Aggravating walking ,standing and stairs . Alleviating rest . Symptoms intermittent. Denies paresthesia/tingling. Patient sleeping okay . Coughing/sneezing -. Bowel/bladder- No abnormal night pain. In the past Jermain ex's helped the most. Patient goals to decrease symptoms. Patient has had bilateral TKR AND THR . SOCIAL: . VOCATION: retired - Pain Right Lower Extremity Pain Intensity (Out of 10): 0 Pain Intensity Range: 10 - Objective POSTURE: mild forward posture. GAIT: reciprocal pattern. NEURO: denies paresthesia/tingling , reflexes L3-4,L4-5,L5-S1 1/3. SYMMTRITIES: align. PALPATION: unremarkable. MMT: quads/hams/hip 4/5 ,ankle 4/5. FLEXABILITY: hamstrings min tight. LUMBAR ROM: flexion min loss ,extension min loss ,side glides min loss - Special Tests L/S Slump test left side: Negative L/S Slump test right side: Negative L/S Left Straight Leg Raise: Negative L/S Right Straight Leg Raise: Negative - Balance/Special Test Scores Oswestry Low Back Score: 15 - Goals Goal 1:: Patient to be I with HEP for lumbar Goal Time Frame: 4-6 Weeks Goal 2:: Patient to demonstrate 50% improvement with less pain and improved function. Goal Time Frame: 4-6 Weeks Goal 3:: Patient to improve back oswestry score by 5 points or> to improve function Goal Time Frame: 4-6 Weeks Goal 4:: Patient improve lumbar ROM for function for lifting and ties shoes. Goal Time Frame: 4-6 Weeks - Rehabilitation Potential Physical Therapy Diagnosis: This patient has lumbar radiculopathy with possible stenosis worse with standing/walking increases with position thus benefit from skilled PT Rehabilitation Potential: Good - Anticipated Interventions Patient/Client Instruction: Educate patient on: Condition, Plan of Care For the Purpose of:: To decrease pain, To increase ROM, To improve muscle performance and motor function, To increase tolerance to activity/condition/position, To improve performance and independence with ADL's, To improve ability of physical actions for home/community/work/leisure, To improve health of tissue, To decrease soft tissue restriction, To increase flexibility/ROM, To prevent re-injury Therapeutic Exercise to Include: Strength training, Body mechanics, Postural training, Flexibilty training, Dynamic Lumbar Stabilization Comment: BLE For the Purpose of:: To decrease pain, To increase ROM, To improve muscle performance and motor function, To improve ability to perform ADL's, To increase tolerance to activity/condition/position, To improve ability of physical actions for home/community/work/leisure, To improve health of tissue, To decrease soft tissue restriction, To increase flexibility/ROM TENS: Yes IF ES: Yes Cryotherapy (ice pack, ice massage): Yes Thermo therapy (hot pack): Yes Ultrasound (thermal/non thermal): Yes For the Purpose of:: To decrease pain, To increase ROM, To improve nutrient delivery to tissue, To increase oxygenation perfusion Thank you for the opportunity to evaluate your patient. For Medicare and Medicare HMO plans, please review the plan of care and approve it. It will need to be FAXED BACK to us at [phone] for Medicare purposes. For Medicare only, by signing this I certify the plan of care. Please let me know if there are questions or concerns regarding this plan of care. Physician Signature: Date:
--- NOTE | 2023-02-25 10:22 | HP.PT.NRP ---
JASVIR TROTTER was seen in my office for initial evaluation on 12/03/22. The following Plan of Care was established for this patient: Initial Frequency: 2x /Week Initial Duration: 4 Weeks Patient/Client Instruction: Educate patient on: Condition, Plan of Care For the Purpose of:: To decrease pain, To increase ROM, To improve muscle performance and motor function, To increase tolerance to activity/condition/position, To improve performance and independence with ADL's, To improve ability of physical actions for home/community/work/leisure, To improve health of tissue, To decrease soft tissue restriction, To increase flexibility/ROM, To prevent re-injury Therapeutic Exercise to Include: Strength training, Body mechanics, Postural training, Flexibilty training, Dynamic Lumbar Stabilization For the Purpose of:: To decrease pain, To increase ROM, To improve muscle performance and motor function, To improve ability to perform ADL's, To increase tolerance to activity/condition/position, To improve ability of physical actions for home/community/work/leisure, To improve health of tissue, To decrease soft tissue restriction, To increase flexibility/ROM TENS: Yes IF ES: Yes Cryotherapy (ice pack, ice massage): Yes Thermo therapy (hot pack): Yes Ultrasound (thermal/non thermal): Yes For the Purpose of:: To decrease pain, To increase ROM, To improve nutrient delivery to tissue, To increase oxygenation perfusion This patient was last seen in our office . Pertinent comments regarding their Physical therapy will appear below: Patient seen for PT for HEP and modalities thus is d/c At this point I will be discontinuing this patient from physical therapy. I would be happy to see this patient again in the future if found appropriate by the physician. Thank you! Kendrick Berrios, PT, Cert MDT, OCS Balance/Gait/Functional tests - Balance/Special Test Scores Oswestry Low Back Score: 4
== END 2022-12-18 19:00 | disposition home or self-care (01) ==
LOC: PT 08:30
PROVIDERS: PCP Family Medicine; Referring Provider Orthopaedic Surgery; Visit Provider Orthopaedic Surgery
DX: M54.41 Lumbago with sciatica, right side (principal)
CPT/HCPCS: 97110; 97162; 97530

== ENCOUNTER 2023-05-08 07:03 | Emergency (ER) | payer MEDICARE, SELFPAY ==
[2023-05-08 07:05] VITALS: BP 164/74; PULSE 80; RESP 16; TEMP 36.6; O2SAT 100; BMI 31.7
--- NOTE | 2023-05-08 07:17 | CT_ITS ---
INDICATION: flank pain-LEFT. MAR SERIES FOR METAL REDUCTION EXAMINATION: CT ABDOMEN AND PELVIS WITHOUT CONTRAST TECHNIQUE: Helically acquired images were obtained of the abdomen and pelvis without oral or IV contrast. A radiation dose optimization technique was used for this scan. IV Contrast dosage and agent: None. Oral contrast: None. RADIATION DOSAGE (If Supplied By Facility): CTDIvol = ( 13.76 ) mGy, DLP = ( 1408.31 ) mGycm COMPARISON: Prior CT scan of the abdomen and pelvis of 09/04/2018. FINDINGS: LOWER CHEST: Essentially unremarkable No cardiomegaly or pericardial effusion. LIVER: Multiple liver cysts are again seen, the largest measures about 2 cm increased in size since previous exam. Prominent right lobe of the liver could be due to Rebekah''s lobe. GALLBLADDER AND BILIARY TREE: No calcified gallstones. No gallbladder distension or wall edema. No intra- or extrahepatic biliary ductal dilation. PANCREAS: No focal cystic or solid mass. SPLEEN: Normal size without focal cystic or solid mass. ADRENAL GLANDS: No nodules. KIDNEYS AND URETERS: Previously suggested bilateral bilateral double-J stent catheters have been removed. Right-sided double collecting systems with ureters joining in their proximal third. Moderate to severe right hydronephrosis due to 6 mm stone in proximal right ureter. Moderate left hydronephrosis likely due to 5 mm stone in the distal left ureter close to the ureterovesical junction. Limited evaluation of the patient due to severe artifacts from bilateral hip arthroplasty. Anteriorly malrotated left kidney. PERITONEUM: No ascites or free air. No other fluid collection. BOWEL: The appendix is not definitely identified. No stomach or bowel distension. No focal inflammatory change. LYMPH NODES: No enlarged mesenteric or retroperitoneal lymph nodes. VESSELS: Atherosclerotic calcifications of the abdominal aorta without evidence of aneurysm URINARY BLADDER: Bladder is grossly unremarkable poorly visualized due to artifacts. REPRODUCTIVE ORGANS: No pelvic masses. ABDOMINAL WALL: Probable small bilateral inguinal hernias containing fat. BONES: Degenerative changes of the spine. CT/Abdomen/Pelvis without Cont IMPRESSION: 1. Moderate to severe right hydronephrosis due to 6 mm stone in the proximal right ureter. 2. Moderate left hydronephrosis due to 5 mm stone in distal left ureter. 3. 4 mm nonobstructing stone in the lower pole of the right kidney. Electronically Signed: áSnchez Cazares MD at 8:25 EDT ,
--- NOTE | 2023-05-08 07:17 | EKG12_ITS ---
Test Reason : flank pain Blood Pressure : / mmHG Vent. Rate : 070 BPM Atrial Rate : 070 BPM P-R Int : 162 ms QRS Dur : 080 ms QT Int : 390 ms P-R-T Axes : 001 091 042 degrees QTc Int : 421 ms Normal sinus rhythm Rightward axis Low voltage QRS Borderline ECG Confirmed by MARTÍN JEAN, ISABEL ([id number]), advertising editor SALTY GREGORY ([id number]) on 05/13/2023 8:30:08 AM Referred By: Confirmed By:JUANITA RESENDIZ MD
--- NOTE | 2023-05-08 07:18 | EX.ED.DYSGE1 ---
HPI History of Present Illness Chief Complaint: Flank Pain Informant: patient Onset/Context/Timing Onset: Yesterday Context: Gradual Onset Timing: Waxes and wanes Maximum Severity: Moderate Narrative Narrative: Patient presents with pain to the lateral left lower ribs/flank area. Pain started yesterday and has been gradual in onset. She felt somewhat nauseated today after trying to eat so she presents for evaluation. She does report urinary frequency but no dysuria. She has had a prior kidney stone but does not remember if this feels similar. She denies any injury. [facility] Medical History (Updated 05/08/23 @ 09:[address] Felicia Curtis MD) Arthritis Femur fracture, left Fracture of both knees High cholesterol Hypertension Leg fracture, right Mitral valve prolapse Nephrolithiasis Pulmonary embolism Rheumatoid arteritis Wears glasses Home Medications atorvastatin 10 mg tablet (Lipitor) 10 mg PO DAILY cholesterol 11/08/13 [History Last Taken 09/03/18 08:30] escitalopram oxalate 20 mg tablet (Lexapro) 20 mg PO DAILY depression 05/23/18 [History Last Taken 09/03/18] folic acid 1 mg tablet 2 mg PO SUMOTUWETHSA supplement 05/23/18 [History Last Taken 09/03/18] losartan 50 mg tablet (Cozaar) 100 mg PO DAILY bp 05/23/18 [History Last Taken 09/03/18 08:30] methotrexate sodium 2.5 mg tablet 15 mg PO FR arthritis 05/23/18 [History Last Taken 09/02/18] calcium carbonate 600 mg-vitamin D3 5 mcg (200 unit) tablet 2 ea PO DAILY 08/26/20 [History Last Taken Unknown] hydrocodone-acetaminophen 5-325mg 5mg-325mg 1 tab PO Q6H PRN PRN Pain 3 days #10 TABLETS 05/08/23 [Rx Last Taken Unknown] ondansetron 4 mg disintegrating tablet 4 mg PO Q8H PRN PRN Nausea #10 tabs 05/08/23 [Rx Last Taken Unknown] Allergy/AdvReac Type Severity Reaction Status Date / Time bee venom protein (honey bee) Allergy Anaphylaxis Verified 05/08/23 07:05 Sulfa (Sulfonamide Allergy Other Verified 05/08/23 07:05 Antibiotics) codeine AdvReac Nausea Verified 05/08/23 07:05 tramadol AdvReac Nausea Verified 05/08/23 07:05 Surgical History H/O bilateral hip replacements History of bilateral knee replacement Hx of parathyroidectomy Hx of tonsillectomy Social History Smoking Status: Never smoker ROS ROS ED Constitutional Constitutional ED: Denies chills or fever(s) Eyes Eyes: Denies change in vision or discharge from eye(s) ENT ENT ED: Denies discharge from eye(s), rhinorrhea or sore throat Cardiovascular Cardiovascular: Denies chest pain or palpitations Respiratory/Chest Respiratory/Chest: Denies cough or dyspnea Gastrointestinal Gastrointestinal: Reports abdominal pain and nausea; Denies diarrhea or vomiting Genitourinary Genitourinary ED: Reports urinary frequency; Denies difficulty urinating or dysuria Musculoskeletal Musculoskeletal: Reports neck pain; Denies back pain or extremity pain Integumentary Denies Abrasions or rash Neurologic Neurologic: Denies headache(s) or weakness Psychiatric Psychiatric: Denies anxiety or depression Allergic/Immunologic Allergic/Immunologic ED: Denies lip swelling or urticaria EXAM Physical Exam Const Vital Signs: 05/08/23 07:05 Temperature 97.8 F Temperature Source Temporal Pulse Rate 80 Respiratory Rate 16 Blood Pressure 164/74 H Blood Pressure Mean 104 Pulse Ox 100 Oxygen Delivery Method Room Air Positive well nourished and well developed General Appearance ED: well developed HEENT Reports normocephalic and head/scalp atraumatic Eyes PERRL and EOMs intact bilaterally Neck supple Chest Wall inspection of chest normal and palpation of chest normal Resp normal respiratory effort and clear to auscultation bilaterally Cardio regular rate and regular rhythm GI normal to inspection, nondistended, normoactive bowel sounds Palpation: soft Back/Spine General Back: CVA tenderness left Extremity normal to inspection Neuro oriented x3 and no sensory deficits noted Sensorium / Orientation: alert Motor Exam: strength 5/5 throughout Psych mental status grossly normal Skin no rashes or lesions noted MDM MDM MDM Narrative Medical decision making narrative: Patient declined anything for pain. Labwork obtained to evaluate for leukocytosis, anemia, and electrolyte derangement. Urinalysis obtained to evaluate for infection/hematuria. CT scan of the flank obtained to evaluate for possible kidney stone. Lab Data Attestation: I reviewed the patient's lab results. Labs: Laboratory Results - last 24 hr 05/08/23 05/08/23 07:09 07:27 WBC 5.0 RBC 3.61 L Hgb 12.1 Hct 36.4 L MCV 100.8 H MCH 33.5 H MCHC 33.2 RDW Std Deviation 48.7 H RDW Coeff of Edward 13.1 Plt Count 173 MPV 9.6 Immature Gran % (Auto) 0.000 Neut % (Auto) 57.9 Lymph % (Auto) 28.9 Mckinley % (Auto) 8.2 Eos % (Auto) 4.4 Baso % (Auto) 0.6 Absolute Neuts (auto) 2.9 Absolute Lymphs (auto) 1.44 Nucleated RBC % 0 Sodium 139 Potassium 3.8 Chloride 109 H Carbon Dioxide 25.0 Anion Gap 5 BUN 16 Creatinine 0.95 Estim Creat Clear Calc 44.63 Est GFR (MDRD) Af Amer 73 Est GFR (MDRD) Non-Af 60 BUN/Creatinine Ratio 16.8 Glucose 120 H Calcium 8.7 Urine Color Yellow Urine Clarity Sl. Cloudy Urine pH 7.0 Ur Specific [place] 1.010 Urine Protein 30 H Urine Glucose (UA) Normal Urine Ketones Negative Urine Occult Blood 50 H Urine Nitrite Negative Urine Bilirubin Negative Urine Urobilinogen Normal Ur Leukocyte Esterase 500 H Urine RBC 0 SEEN Urine WBC >100 SEEN Ur Squamous Epith Cells 5-10 SEEN Urine Bacteria 0 SEEN Urine Mucus 0 SEEN Radiography Diagnostic Testing: Clinical Impression(s) from Imaging Studies Abdomen/Pelvis CT 05/08/23 07:17 IMPRESSION: 1. Moderate to severe right hydronephrosis due to 6 mm stone in the proximal right ureter. 2. Moderate left hydronephrosis due to 5 mm stone in distal left ureter. 3. 4 mm nonobstructing stone in the lower pole of the right kidney. Electronically Signed: Sánchez Cazares MD at 8:25 EDT , EKG Initial EKG: Attestation: I personally reviewed and interpreted this EKG as follows: Interpretation: Sinus Rhythm (Sinus at 70 with no acute ischemia.) Treatment and Re-Evaluation :: CBC was normal white count at 5 with a hemoglobin of 12.1. Chemistry studies unremarkable with normal renal function. Urinalysis shows greater than 100 white cells with 5-10 epithelials and 0 bacteria. This will be sent for culture. CT scan of the flank reveals bilateral kidney stones. She has right moderate to severe hydronephrosis with a 6 mm proximal ureteral stone. She has moderate left hydro with a 5 mm distal ureteral stone. Test results are discussed with patient and at bedside. At this time she is still producing urine and has normal renal function. We discussed the importance of close follow-up if she notes that she is not able to pass urine or is not able to keep her analgesics in. Patient be referred to Dr. Vazquez for follow-up. She was encouraged to return to the emergency room this weekend if she has any problems. Discharge Plan Triage Chief Complaint: Flank Pain ED Provider: Felicia Curtis Dx/Rx/DC Orders Clinical Impression: Ureterolithiasis Instructions: ED Kidney Stone w/ Colic Prescriptions: New ondansetron 4 mg tablet,disintegrating 4 mg PO Q8H PRN PRN (Reason: Nausea) Qty: 10 0RF hydrocodone-acetaminophen 5-325 mg tablet 1 tab PO Q6H PRN PRN (Reason: Pain) 3 Days Qty: 10 0RF No Action atorvastatin [Lipitor] 10 MG tablet 10 mg PO DAILY Patient Comments: doris cholesterol folic acid 1 MG tablet 2 mg PO SUMOTUWETHSA escitalopram oxalate [Lexapro] 20 MG tablet 20 mg PO DAILY losartan [Cozaar] 50 MG tablet 100 mg PO DAILY Patient Comments: methotrexate sodium 2.5 MG tablet 15 mg PO FR Patient Comments: 6 (2.5 MG) TABLETS EVERY WEDNESDAY. Rx Instructions: take weekly on Wednesday calcium carbonate-vitamin D3 1 EACH tablet 2 ea PO DAILY Primary Care Provider: Kameron Huerta Referrals: Lizeth Vazquez MD [Med Staff - Active Staff] - 3-5 Days Kameron Huerta MD [Primary Care Provider] - Disposition Disposition: Home, Self Care
[2023-05-08 07:33] LABS: Absolute Lymphocyte Count 1.44 X10^3/uL (0.83-4.51); Absolute Neutrophil Count 2.9 X10^3/uL (2.0-7.7); Basophil# 0.03 X10^3/uL; Basophil% 0.6 % (0-1); Eosinophil# 0.22 X10^3/uL; Eosinophils% 4.4 % (0-5); Hematocrit 36.4 % (37-47); Hemoglobin 12.1 g/dL (12.0-15.0); Lymphocyte # 1.44 X10^3/ul (0.83-4.51); Lymphocyte % 28.9 % (19-41); Mean Corp Hgb Conc 33.2 g/dL (32-36); Mean Corpuscular Hgb 33.5 pg (27.0-32.0); Mean Corpuscular Volume 100.8 fL (81-99); Mean Platelet Vol. 9.6 fl (6.2-12.0); Monocyte# 0.41 X10^3/uL; Monocyte% 8.2 % (0-10); NRBC Flagged by Analyzer 0 % (0-5); Neutrophil # 2.89 X10^3/uL (2.7-7.7); Neutrophil % 57.9 % (47-70); Platelet Count 173 K/mm3 (150-450); RBC Distribution Width CV 13.1 % (11.6-14.6); RBC Distribution Width SD 48.7 fl (35.1-43.9); Red Blood Count 3.61 M/mm3 (4.2-5.4)
[2023-05-08 07:51] LABS: Anion Gap 5 (5-15); BUN 16 mg/dL (7-18); BUN/Creat Ratio 16.8 RATIO (10-20); Calcium,Total 8.7 mg/dL (8.5-10.1); Chloride 109 mmol/L (98-107); Creatinine, Serum 0.95 mg/dL (0.55-1.02); EST Glomerular Filtration Rate 60 mL/min (>60); Est Glom Filt Rate - Afr Amer 73 mL/min (>60); Estimated Creatinine Clearance 44.63 ml/min; Glucose 120 mg/dL (74-106); Potassium 3.8 mmol/L (3.5-5.1); Sodium Level 139 mmol/L (136-145)
[2023-05-08 08:40] LABS: Bacteria 0 SEEN /hpf (None Seen); Color, Urine Yellow (Yellow); Glucose, Dipstick Normal (Normal); Ketone-Dipstick Negative (Negative); Leukocyte Esterase-Dipstick 500 /ul (Negative); Mucous, Urine 0 SEEN /hpf (<or=2+); Nitrite-Dipstick Negative (Negative); Occult Blood-Urine 50 /ul (Negative); Protein-Dipstick 30 mg/dl (Negative); Red Blood Cells-Urine 0 SEEN /hpf (0-5); Urine Bilirubin Dipstick Negative (Negative); Urine Clarity Sl. Cloudy (Clear); Urine Urobilinogen Normal (Normal)
[2023-05-08 08:46] LABS: Squamous Epithelial Cells - UA 5-10 SEEN /hpf (5-10); White Blood Cells >100 SEEN /hpf (0-5)
== END 2023-05-08 09:26 | disposition home or self-care (01) ==
PROVIDERS: Emergency Provider Emergency Medicine; PCP Family Medicine; Visit Provider Emergency Medicine
DX: N13.2 Hydronephrosis with renal and ureteral calculous obstruction (principal); M06.9 Rheumatoid arthritis, unspecified; E78.00 Pure hypercholesterolemia, unspecified; R35.0 Frequency of micturition; I10 Essential (primary) hypertension; M19.90 Unspecified osteoarthritis, unspecified site; Z86.711 Personal history of pulmonary embolism; Z79.899 Other long term (current) drug therapy
CPT/HCPCS: 74176; 80048; 81001; 85025; 87086; 87088; 93005; 99284; A4216

== ENCOUNTER 2023-05-13 10:42 | Outpatient (CLI) | payer MEDICARE, SELFPAY ==
[2023-05-13] VITALS (8 sets, daily range): BP systolic 98–143; BP diastolic 41–71; PULSE 57–88; RESP 16; TEMP 36.2–37.4; O2SAT 92–98; BMI 33.0
[2023-05-13] MEDS: Lactated Ringers 1,000 ML 15 ML IV ×2 (08:27→09:35)
[2023-05-13] MEDS: Cefazolin 2 GM in 0.9% Normal Saline 100 ML IV (09:20)
--- NOTE | 2023-05-13 09:25 | CALC_PTH ---
PATIENT: JASVIR TROTTER LOC: [facility] [place][id number] AGE/SX: 78/F ROOM: RE05/13/[address]: Dr. Lizeth Vazquez MD : 1945 BED: DIS: 05/13/2023 SPEC #: [id number] RECD: 05/13/23 10:50 STATUS: ALAINA AL #: [id number] ALE: 05/13/23 09:[address]: Lizeth Vazquez DEPT: SURGICAL PATHOLOGY RECD BY: Amanda Vang ENTERED: 05/13/23 11:55 SP TYPE: Calculi OTHR DR: Dr. Kameron Huerta MD Tissues: A - CALCULI B - CALCULI Procedures: Surgery Specimen Level I HEADER OPERATION: Cysto, ureteroscopy, laser lithotripsy, stone basket extraction PRE-OP DIAGNOSIS: Bilateral ureteral calculi, right renal stone, hydronephrosis, flank pain TISSUE SUBMITTED: A - Left ureteral calculi for analysis, B - Right ureteral calculi for analysis GROSS DIAGNOSIS A. A fragment of stone, clinically left ureteral calculus (gross only). B. A fragment of stone, clinically right ureteral calculus (gross only). KARLY:lina 05/14/2023 COMMENT A & B. The calculus is submitted in its entirety for chemical stone analysis. The results from this study will be reported separately. GROSS DESCRIPTION A - Received without fixative labeled with the patient's name and designated left ureteral calculi. The specimen consists of a fragment of brownish-black stone measuring 0.5 x 0.3 x 0.2 cm. The entire specimen is submitted for stone analysis. B - Received without fixative labeled with the patient's name and designated right ureteral calculi. The specimen consists of a fragment of black stone covered with blood measuring 0.2 x 0.2 x 0.1 cm. The entire specimen is submitted for stone analysis. / KARLY:lina 05/13/2023 CPT: 46019 x2
--- NOTE | 2023-05-13 10:41 | DCINST_ITS ---
Discharge Instructions Diet Discharge Diet: No restrictions Activity Discharge Activity: Return to Normal Activity Dressing / Incision Call your doctor if you observe: Fever of 101 or Higher, Inability to urinate and Inability to have a bowel movement Follow Up Care Please Follow Up With: Lizeth Vazquez MD When: The office will call the patient to make arrangements for follow-up. Test Results: Test results from this visit will be discussed in further detail at your follow- up appointment, if applicable. Discharge Plan Admission Attending Provider: Lizeth Vazquez Primary Care Provider: Kameron Huerta Discharge Orders/Prescriptions Prescriptions: New oxycodone-acetaminophen [Percocet] 5-325 mg tablet 1 tab PO Q8H PRN (Reason: pain) 3 Days Qty: 10 0RF cephalexin [cephalexin] 500 mg capsule 500 mg PO Q12 3 Days Qty: 6 0RF phenazopyridine [Pyridium] 200 mg tablet 200 mg PO TID PRN PRN (Reason: Bladder Spasms) 7 Days Qty: 30 0RF Continued atorvastatin [Lipitor] 10 MG tablet 10 mg PO DAILY Patient Comments: doris cholesterol folic acid 1 MG tablet 2 mg PO SUMOTUWETHSA escitalopram oxalate [Lexapro] 20 MG tablet 20 mg PO DAILY losartan [Cozaar] 50 MG tablet 100 mg PO DAILY Patient Comments: methotrexate sodium 2.5 MG tablet 10 mg PO FR Patient Comments: 6 (2.5 MG) TABLETS EVERY WEDNESDAY. Rx Instructions: take weekly on Wednesday calcium carbonate-vitamin D3 1 EACH tablet 2 tab PO DAILY ondansetron 4 mg tablet,disintegrating 4 mg PO Q8H PRN PRN (Reason: Nausea) Qty: 10 0RF hydrocodone-acetaminophen 5-325 mg tablet 1 tab PO Q6H PRN PRN (Reason: Pain) 3 Days Qty: 10 0RF omega [id number]-fish oil [Fish Oil] 1,200 (144-216) mg capsule 1 cap PO DAILY Referrals / Follow Up: Kameron Huerta MD [Primary Care Provider] - Disposition Disposition (needs filled in before D/C Order can be placed): Home, Self Care
--- NOTE | 2023-05-13 10:43 | PCM.OPRPT ---
Report of Operation Date of Procedure: 05/13/23 Pre-Operative Diagnosis: Left distal ureteral calculus, right proximal ureteral calculus Post-Operative Diagnosis: Same Surgery/Procedure Performed:: Cystoscopy, left ureteroscopy stone basket extraction and left ureteral stent insertion, right retrograde pyelogram, right ureteroscopy, holmium laser lithotripsy, stone basket extraction, right ureteral stent insertion Surgeon: Lizeth Vazquez Type of Anesthesia: General Specimen's removed: Left ureteral calculus, right ureteral stone fragment Description of Procedure: The patient is a 78-year-old female who was seen in the emergency room for left flank pain and was found to have bilateral ureteral stones, the one on the left in the distal location and the other in a right upper pole proximal location. She presents for surgical intervention. Informed consent was obtained.The patient was taken to the operating room and placed on the operating room table. Anesthesia monitored the head, neck, airway, IV access and vital signs throughout the case. Once anesthesia was appropriately administered, the patient was placed into dorsolithotomy position was prepped and draped in usual sterile fashion. The cystoscope was inserted through the urethra under direct visualization into the urinary bladder. The bladder mucosa was visualized in its entirety revealing no evidence of mass, erythema, lesion or foreign body.The left ureteral orifice was carefully intubated with a 0.035 Glidewire which was advanced without difficulty. The semirigid ureteroscope was then used to intubate the left ureteral orifice and the stone was identified. It was grasped with a basket and removed without difficulty. A 4.5 Afghan by 24 cm JJ stent was inserted over the wire with good positioning in the renal pelvis as well as the urinary bladder. Attention was then turned towards the right side where the upper pole ureteral orifice was gently cannulated with an 8 Afghan cone-tip catheterAnd a retrograde pyelogram was performed revealing a filling defect consistent with a stone. 2 separate 0.035 Glidewire's were then placed through the ureteral orifice into the upper pole. The flexible ureteroscope was inserted over one of the wires and access was obtained to the proximal ureter where the stone was identified. It was broken into multiple small pieces using the 200 ?m laser fiber. A stone basket was used to retrieve one of the fragments. Upon exiting of the ureter, the decision was made to an attempt placement of a ureteral access sheath. I was unable to place it carefully and met resistance distally. At this time the decision was made to abort and placed a ureteral stent. A 6 Afghan 24 cm JJ stent was placed over the safety wire without difficulty with good positioning in the renal pelvis as well as the urinary bladder. Patient's bladder was then emptied and the case was terminated. She was awakened and taken to the recovery room in good condition. There were no complications during this procedure. Grafts/Implants Used: 4.5 x 24 cm JJ stent on the left, 6 Afghan x 24 cm JJ stent on the right Complications None Admit VTE Documentation VTE Present on Admission: Yes VTE Mechan Device Prophylaxis: SCD's VTE Pharm Prophylaxis ordered?: No Reason prophylaxis not ordered:: Treatment Not Indicated
[2023-05-24 12:31] LABS: Source Right Ureter
[2023-05-24 12:43] LABS: Size 2x2 mm
== END 2023-05-13 12:45 | disposition home or self-care (01) ==
LOC: SDC 10:43 → AC 10:43 → SDC 10:43
PROVIDERS: PCP Family Medicine; Referring Provider Urology; Visit Provider Urology
PROC: 0TJ98ZZ Inspection of Ureter, Via Natural or Artificial Opening Endoscopic (ICD-10-PCS; CPT 52352; principal; 2023-05-13 09:15)
DX: N13.2 Hydronephrosis with renal and ureteral calculous obstruction (principal); M06.9 Rheumatoid arthritis, unspecified; I10 Essential (primary) hypertension; E78.00 Pure hypercholesterolemia, unspecified; Z79.899 Other long term (current) drug therapy
CPT/HCPCS: 52356; 52352; 52332; 00918; 76000; 82360; 88300; J7120; C2617; J2405

== ENCOUNTER 2023-07-01 11:23 | Day surgery (SDC) | payer MEDICARE, SELFPAY ==
--- NOTE | 2023-06-30 17:25 | PCM.HP.BLA ---
History and Physical Date of Admission: 07/01/23 Pre-Op History and Physical ? HPI: The patient is a 78 year old female presenting for discussion regarding PMB, endometrial polyp, thickened endometrium on ultrasound. Pt reports no further bleeding since the initial episode of bleeding. ? pre-operative visit. She is scheduled for Hysteroscopy D&C and polypectomy, for PMB, thickened endometrium, Endometrial polyp on EMB on 07/01/23. Procedure discussed along with risks, benefits and complications. Other alternatives discussed for management. Consent form signed? Yes. ? ? PAST MEDICAL HISTORY PAST MEDICAL HISTORY Diagnosis Date ? Diverticulosis of colon (without mention of hemorrhage) ? ? Diverticulosis ? Essential hypertension, benign ? ? Family history of breast cancer ? ? Generalized osteoarthrosis, unspecified site ? ? History of kidney stones 01/26/2018 ? Mitral valve disorders(424.0) ? ? OAB (overactive bladder) 08/14/2022 ? Other and unspecified disc disorder of unspecified region ? ? Intervertebral disc disorders ? Other and unspecified hyperlipidemia ? ? Other specified anemias ? ? Pulmonary embolus (HCC) 06/02/2018 ? 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 ? PAST SURGICAL HISTORY PAST SURGICAL HISTORY Procedure Laterality Date ? ANESTH DIAGNOSTIC ARTHROSCOPIC PROC KNEE JOINT ? ? ? right ? ARTHRP ACETBLR/PROX FEM PROSTC AGRFT/ALGRFT Left 04/10/2014 ? Hip replacement, total ? ARTHRP KNE CONDYLE&PLATU MEDIAL&LAT COMPARTMENTS ? 03/11/2010 ? right knee ? BREAST BIOPSY MAMOTOME LEFT ? 12/21/2005 ? RIGHT BREAST X 3 WITH CLIP PLACEMENT ? COLONOSCOPY FLX DX W/COLLJ SPEC WHEN PFRMD ? 10/11/2004 ? Colonoscopy ? COLONOSCOPY W/BIOPSY SINGLE/MULTIPLE ? 05/02/2015 ? DILATION & CURETTAGE DX&/THER NONOBSTETRIC ? ? ? Dilation & curettage ? EGD TRANSORAL BIOPSY SINGLE/MULTIPLE ? 05/02/2015 ? EXC/DSTRJ LINGUAL TONSIL ANY METHOD SPX ? ? ? PAST SURGICAL HISTORY OF ? ? ? Large left toe ? PAST SURGICAL HISTORY OF Bilateral 07/2022 ? Cataract Surgery completed 2 weeks apart from each other ? RADIOLOGICAL EXAMINATION SURGICAL SPECIMEN ? 12/21/2005 ? RIGHT BREAST X 3 ? SIGMOIDOSCOPY FLX DX W/COLLJ SPEC BR/WA IF PFRMD ? 04/03/2008 ? Hemorrhoids ? TOTAL HIP REPLACEMENT Right 04/20/2016 ? ? ? CURRENT MEDICATIONS Current Outpatient Medications Medication Sig Dispense Refill ? methotrexate 2.5 mg tablet TAKE 4 TABLETS ON WEDNESDAY 50 tablet 0 ? escitalopram oxalate (LEXAPRO) 20 mg tablet Take 1 tablet by mouth once daily. 90 tablet 3 ? losartan (COZAAR) 100 mg tablet Take 1 tablet by mouth once daily. 90 tablet 3 ? atorvastatin (LIPITOR) 10 mg tablet Take 1 tablet by mouth once daily. 90 tablet 3 ? acetaminophen (TYLENOL EXTRA STRENGTH) 500 mg tablet Take 1 tablet by mouth twice daily. ? ? ? woscglq-epjfmffqa-gttjasd D3 500 mg(1,250mg) -200 unit per tablet Take 1 tablet by mouth three times daily. 90 tablet 2 ? folic acid 1 mg tablet Take 2 mg by mouth as directed. Take 2 tablets daily except none on Wednesday ? diclofenac (VOLTAREN) 1 % topical gel Apply to affected area. ? ? ? fish oil/dha/epa(FISH OIL 1,200 MG-144 MG-216 MG CAP) Take one(1) tablet daily. ? 0 ? No current facility-administered medications for this visit. ? ? ALLERGIES: Bee Stings [Other], Codeine, Sulfa (Sulfonamide Antibiotics), and Tramadol ? PERSONAL HISTORY: SOCIAL HISTORY Social History ? Tobacco Use ? Smoking status: Never ? Smokeless tobacco: Never Vaping Use ? Vaping Use: Never used Substance Use Topics ? Alcohol use: Yes ? ? Comment: 1 to 2 glasses of wine / day ? Drug use: No ? FAMILY HISTORY: FAMILY HISTORY FAMILY HISTORY Problem Relation Age of Onset ? Cancer Mother ? ? LUNG ? Hypertension Mother ? ? Arthritis Father ? ? Thyroid Father ? ? Breast Cancer Sister ? ? Breast Cancer Sister ? ? ? REVIEW OF SYMPTOMS: negative except as noted above PHYSICAL EXAMINATION: ? VITALS: Blood pressure 140/82, weight 197 lb (89.4 kg). ? GENERAL: The patient is well nourished, well hydrated in no acute distress. , The patient is oriented to time, place, and person. NECK: full range of motion LUNGS: Clear to auscultation bilaterally. no wheezes, rhonchi or rales HEART: Regular rate and rhythm, Normal heart sounds, and No murmurs or gallops ? ? IMPRESSION: 78yo with PMB, thickened EM, endometrial polyp on EMB ? PLAN: Hysteroscopy, D&C, polypectomy with symphion ? Pt has been counseled on risks/benefits and alternatives of surgery including but not limited to anesthesia, bleeding, infection, uterine perforation with subsequent injury to pelvic structures including bowel, bladder, ureters and vessels. Pt wishes to proceed with surgery at this time. ? I have reviewed and updated past medical and surgical history, medications and allergies Catherine Nolen MD ?9:37 AM
[2023-07-01 11:54] VITALS: BP 129/72; PULSE 68; RESP 16; TEMP 36.5; O2SAT 96; BMI 32.9
[2023-07-01 11:58] LABS: Hemoglobin 12.2 g/dL (12.0-15.0); Mean Corpuscular Hgb 33.9 pg (27.0-32.0); Mean Corpuscular Volume 102.8 fL (81-99); Mean Platelet Vol. 9.6 fl (6.2-12.0); Platelet Count 212 K/mm3 (150-450); RBC Distribution Width CV 13.3 % (11.6-14.6); RBC Distribution Width SD 50.4 fl (35.1-43.9); White Blood Count 6.1 K/mm3 (4.4-11.0)
[2023-07-01] MEDS: Lactated Ringers 1,000 ML 15 ML IV (12:01)
--- NOTE | 2023-07-01 12:28 | DCINST_ITS ---
Discharge Instructions Diet Discharge Diet: No restrictions Activity May resume sexual activity in: 1 week Dressing / Incision Call your doctor if you observe: Fever of 101 or Higher, Inability to urinate, Using more than 1 pad per hour and Uncontrolled pain Follow Up Care Please Follow Up With: Catherine Hogue MD When: 1-2 weeks post OP if you need an appointment please call [phone] Test Results: Test results from this visit will be discussed in further detail at your follow- up appointment, if applicable. Discharge Plan Admission Attending Provider: Catherine Hogue Primary Care Provider: Kameron Huerta Consulting Providers: Lizeth Vazquez Discharge Orders/Prescriptions Prescriptions: No Action atorvastatin [Lipitor] 10 MG tablet 10 mg PO DAILY Patient Comments: doris cholesterol folic acid 1 MG tablet 2 mg PO SUMOTUWETHSA escitalopram oxalate [Lexapro] 20 MG tablet 20 mg PO DAILY losartan [Cozaar] 50 MG tablet 100 mg PO DAILY Patient Comments: methotrexate sodium 2.5 MG tablet 10 mg PO FR Patient Comments: 6 (2.5 MG) TABLETS EVERY WEDNESDAY. Rx Instructions: take weekly on Wednesday calcium carbonate-vitamin D3 1 EACH tablet 2 tab PO DAILY omega 0-eww-fhw-fish oil [Fish Oil] 1,200 (144-216) mg capsule 1 cap PO DAILY Referrals / Follow Up: Kameron Huerta MD [Primary Care Provider] - Disposition Disposition (needs filled in before D/C Order can be placed): Home, Self Care
--- NOTE | 2023-07-01 12:37 | OP.PCM_ITS ---
Report of Operation Date of Procedure: 07/01/23 Pre-Operative Diagnosis: PMB, EM polyp Post-Operative Diagnosis: same, atrophic endometrium Surgery/Procedure Performed:: Hysteroscopy, D&C, Polypectomy Description of Surgical Findings:: right tubal ostia polyp Surgeon: Catherine Hogue validation scientist: None Type of Anesthesia: General Special Medications: none Specimen's removed: endometrial polyp Drains: none Estimated Blood Loss (mL): <5 Fluids Replaced: 400cc Description of Procedure: After informed consent was obtained patient was taken to OR and placed in supine position- she was placed in lithotomy position prior to anesthesia induction due to hip/knee surgeries to make sure there was no discomfort for patient. Anesthesia was given. She was then prepped and draped in normal sterile fashion. bladder was drained with straight catheter with approximately of clear yellow urine expelled. Weighted speculum placed in posterior fornix of vaginal, single tooth tenaculum was used to gently grasped anterior lip of cervix. Uterus was sounded to 8 cm Cervix was then gently dilated in an incremental fashion. Was adequate dilation was achieved the hysteroscope was inserted using Normal saline as the distention medium. Upon hysteroscopy the endometrium appeared atrophic there was a polyp in the right tubia ostia- The symphion resecting device was used to perform polypectomy which will be sent to pathology for examination. Uterine cavity intact, no complications. At this time procedure was deemed complete and successful. fluid deficit 400cc. Tenaculum removed, speculum removed. Good hemostasis appreciated. Vaginal sweep was negative. Instrument and lap count correct x 2. I anticipate normal postoperative course. Dr. Lizeth Vazquez to continue with her portion of procedure- see her operation dictaction note. Grafts/Implants Used: none Procedure Start Time: 12:52 Procedure Stop Time: 13:01 Complications none Admit VTE Documentation VTE Present on Admission: Yes VTE Mechan Device Prophylaxis: SCD's VTE Pharm Prophylaxis ordered?: No Reason prophylaxis not ordered:: Procedure Not Indicated
--- NOTE | 2023-07-01 13:00 | EMB_PTH ---
PATIENT: JASVIR TROTTER [place] [facility] [id number] AGE/SX: 78/F ROOM: RE07/01/[address]: Dr. Catherine Hogue, MDDOB: 1945 BED: DIS: 07/01/2023 SPEC #: [id number] RECD: 07/01/23 14:21 STATUS: ALAINA SERVANDO #: [id number] ALE: 07/01/23 13:[address]: Catherine Hogue DEPT: SURGICAL PATHOLOGY RECD BY: Prashanth Gimenez ENTERED: 07/02/23 07:13 SP TYPE: ENDOM BX/C OTHR DR: MD Dr. Kameron Carney MD Tissues: A - Endometrium, NOS B - CALCULI Procedures: Surgery Specimen Level I Surgery Specimen Level IV HEADER OPERATION: Hysteroscopy, D & C Symphion, polypectomy PRE-OP DIAGNOSIS: Postmenopausal bleeding, thickened endometrium, endometrial polyp TISSUE SUBMITTED: A - Endometrial polyp, B - Right renal calculi MICROSCOPIC DIAGNOSIS A. Endometrial polyp, dilatation and curettage and polypectomy: Favor fragments of benign endometrial polyp with simple cystic atrophy. Fragments of myometrium. B. Fragments of stone, clinically right renal calculi (gross only). SJ:rg 07/05/2023 COMMENT B. The calculus is submitted in its entirety for chemical stone analysis. The results from this study will be reported separately. MICROSCOPIC DESCRIPTION Slides are reviewed. GROSS DESCRIPTION A - Received in fixative is one container labeled with the patient's name and designated endometrial polyp. The specimen consists of multiple irregular fragments of liz, indurated tissue that in aggregate measure 2.5 x 1.5 x 0.2 cm. The specimen is totally submitted in one cassette. B - Received without fixative labeled with the patient's name and designated right renal calculi. The specimen consists of multiple fragments of brownish-black stone measuring in aggregate 0.4 x 0.4 x 0.1 cm. The entire specimen is submitted for stone analysis. / KARLY:lina 07/02/2023 TC:5 CPT: 55880, 01930
[2023-07-01 13:11] LABS: Anion Gap 4 (5-15); BUN 17 mg/dL (7-18); BUN/Creat Ratio 18.5 RATIO (10-20); Calcium,Total 9.1 mg/dL (8.5-10.1); Chloride 110 mmol/L (98-107); Creatinine, Serum 0.92 mg/dL (0.55-1.02); EST Glomerular Filtration Rate 63 mL/min (>60); Est Glom Filt Rate - Afr Amer 76 mL/min (>60); Estimated Creatinine Clearance 46.08 ml/min; Glucose 103 mg/dL (74-106); Sodium Level 141 mmol/L (136-145)
[2023-07-01 14:00] VITALS: BP 110/73; BP 120/55; BP 129/72; PULSE 76; PULSE 77; RESP 16; TEMP 36.4; O2SAT 100
[2023-07-01 14:15] VITALS: BP 117/58; BP 129/72; PULSE 75; RESP 16; O2SAT 97
--- NOTE | 2023-07-01 14:18 | DCINST_ITS ---
Discharge Instructions Diet Discharge Diet: No restrictions Activity Discharge Activity: Return to Normal Activity May resume sexual activity in: 1 week Dressing / Incision Call your doctor if you observe: Fever of 101 or Higher, Inability to urinate, Inability to have a bowel movement, Using more than 1 pad per hour and Uncontrolled pain Follow Up Care Please Follow Up With: Catherine Hogue MD When: 's office will call patient tomorrow to schedule for stent removal next week. Test Results: Test results from this visit will be discussed in further detail at your follow- up appointment, if applicable. Discharge Plan Admission Attending Provider: Catherine Hogue Primary Care Provider: Kameron Huerta Consulting Providers: Lizeth Vazquez Discharge Orders/Prescriptions Prescriptions: New cephalexin [cephalexin] 500 mg capsule 500 mg PO Q12 3 Days Qty: 6 0RF hydrocodone-acetaminophen [hydrocodone-acetaminophen] 5-325 mg tablet 1 tab PO Q4H PRN PRN (Reason: Pain) 3 Days Qty: 10 0RF Continued atorvastatin [Lipitor] 10 MG tablet 10 mg PO DAILY Patient Comments: doris cholesterol folic acid 1 MG tablet 2 mg PO SUMOTUWETHSA escitalopram oxalate [Lexapro] 20 MG tablet 20 mg PO DAILY losartan [Cozaar] 50 MG tablet 100 mg PO DAILY Patient Comments: methotrexate sodium 2.5 MG tablet 10 mg PO FR Patient Comments: 6 (2.5 MG) TABLETS EVERY WEDNESDAY. Rx Instructions: take weekly on Wednesday calcium carbonate-vitamin D3 1 EACH tablet 2 tab PO DAILY omega 9-pxz-epr-fish oil [Fish Oil] 1,200 (144-216) mg capsule 1 cap PO DAILY Referrals / Follow Up: Kameron Huerta MD [Primary Care Provider] - Disposition Disposition (needs filled in before D/C Order can be placed): Home, Self Care
[2023-07-01 14:19] VITALS: BP 113/57; BP 129/72; PULSE 70; RESP 16; TEMP 36.4; O2SAT 100
[2023-07-01 14:44] VITALS: BP 129/72
--- NOTE | 2023-07-01 15:07 | PCM.OPRPT ---
Report of Operation Date of Procedure: 07/01/23 Pre-Operative Diagnosis: Right ureteral calculus Post-Operative Diagnosis: Same Surgery/Procedure Performed:: Cystoscopy, right ureteroscopy, holmium laser lithotripsy, stone basket extraction and right ureteral stent change, left ureteral stent removal Surgeon: Lizeth Vazquez Type of Anesthesia: General Specimen's removed: Right ureteral calculus Description of Procedure: The patient is a 78-year-old female who had a laser lithotripsy and right ureteral stent insertion performed and now presents for removal of the stone. Informed consent was obtained. The patient was taken to the operating room and placed on the operating room table. Anesthesia monitored the head, neck, airway, IV access and vital signs throughout the case. Once anesthesia was appropriately ministered, the patient was placed into dorsolithotomy position and was prepped and draped in usual sterile fashion. Dr. Nolen performed her portion of the procedure and the case was turned over to pa. The cystoscope was inserted through the urethra under direct visualization. The left ureteral stent was removed with grasping forceps. The right ureteral stent was grasped and pulled to the urethral meatus at which point it was intubated with a 0.035 Glidewire. A second Glidewire was placed alongside the first. The flexible ureteroscope was inserted over the Glidewire and advanced to the mid ureter where the stone was identified. There were multiple small stones seen at this level. The decision was made to switch to a semirigid ureteroscope and the stones were lasered into smaller fragments and removed with a stone basket. When all stones were removed, the ureteroscope was advanced to the renal pelvis without difficulty or evidence of further calculi. At this time the safety wire was utilized for placement of a 4.5 x 24 cm JJ stent. There was good positioning in the renal pelvis as well as the urinary bladder. At this point the patient's bladder was emptied and the case was terminated. The patient was awakened and taken to the recovery room in good condition. There were no complications during this procedure. Grafts/Implants Used: 4.5 x 24 cm JJ stent Complications None Admit VTE Documentation VTE Present on Admission: Yes VTE Mechan Device Prophylaxis: SCD's VTE Pharm Prophylaxis ordered?: No Reason prophylaxis not ordered:: Treatment Not Indicated
== END 2023-07-01 15:03 | disposition home or self-care (01) ==
LOC: SDC 11:24 → AC 11:25
PROVIDERS: Obstetrics & Gynecology; Urology; PCP Family Medicine; Referring Provider Obstetrics & Gynecology; Visit Provider Obstetrics & Gynecology
PROC: 0UB98ZZ Excision of Uterus, Via Natural or Artificial Opening Endoscopic (ICD-10-PCS; CPT 58558; principal; 2023-07-01 12:45)
PROC: 0TJ98ZZ Inspection of Ureter, Via Natural or Artificial Opening Endoscopic (ICD-10-PCS; CPT 52352; 2023-07-01 12:45)
DX: N13.2 Hydronephrosis with renal and ureteral calculous obstruction (principal); M06.9 Rheumatoid arthritis, unspecified; N84.0 Polyp of corpus uteri; E78.00 Pure hypercholesterolemia, unspecified; I10 Essential (primary) hypertension; E07.9 Disorder of thyroid, unspecified; Z79.899 Other long term (current) drug therapy
CPT/HCPCS: 52356; 58558; 00918; 76000; 80048; 82360; 85027; 88300; 88305; J7120; J2405

== ENCOUNTER 2023-10-04 07:12 | Emergency (ER) | payer MEDICARE, SELFPAY ==
[2023-10-04 07:13] VITALS: BP 135/72; PULSE 88; RESP 16; TEMP 36.4; O2SAT 97; BMI 32.4
--- NOTE | 2023-10-04 07:39 | EKG12_ITS ---
Test Reason : SOB Blood Pressure : / mmHG Vent. Rate : 077 BPM Atrial Rate : 077 BPM P-R Int : 166 ms QRS Dur : 084 ms QT Int : 382 ms P-R-T Axes : -28 087 049 degrees QTc Int : 432 ms Normal sinus rhythm Low voltage QRS Borderline ECG Confirmed by WESLEY JEAN, AVIS ([id number]), video effects editor BREANA HUMPHREY ([id number]) on 10/12/2023 9:22:06 AM Referred By: DORETHA Confirmed By:AVIS OLSON MD
[2023-10-04] MEDS: MethylPREDNISolone 125 MG/2 ML Vial 60 MG IV (07:53)
[2023-10-04] MEDS: Albuterol 2.5 MG/3 ML VIAL.NEB. INHALATION ×3 (07:53→07:54)
[2023-10-04 07:59] VITALS: PULSE 94; RESP 20
[2023-10-04 08:06] LABS: Absolute Lymphocyte Count 1.61 X10^3/uL (0.83-4.51); Absolute Neutrophil Count 5.6 X10^3/uL (2.0-7.7); Basophil# 0.06 X10^3/uL; Basophil% 0.7 % (0-1); Eosinophil# 0.24 X10^3/uL; Hematocrit 39.6 % (37-47); Hemoglobin 12.8 g/dL (12.0-15.0); Lymphocyte # 1.61 X10^3/ul (0.83-4.51); Mean Corp Hgb Conc 32.3 g/dL (32-36); Mean Corpuscular Hgb 32.7 pg (27.0-32.0); Mean Corpuscular Volume 101.3 fL (81-99); Mean Platelet Vol. 10.2 fl (6.2-12.0); Monocyte# 0.56 X10^3/uL; Monocyte% 6.9 % (0-10); NRBC Flagged by Analyzer 0 % (0-5); Neutrophil # 5.57 X10^3/uL (2.7-7.7); Platelet Count 208 K/mm3 (150-450); RBC Distribution Width CV 13.4 % (11.6-14.6); RBC Distribution Width SD 49.2 fl (35.1-43.9); Red Blood Count 3.91 M/mm3 (4.2-5.4); White Blood Count 8.1 K/mm3 (4.4-11.0)
[2023-10-04 08:42] VITALS: PULSE 107; RESP 17; O2SAT 93
--- NOTE | 2023-10-04 08:43 | RAD_ITS ---
STUDY: X-RAY CHEST REASON FOR EXAM: Female, 78 years old. Productive cough TECHNIQUE: Frontal and lateral views of the chest COMPARISON: 02/21/2022 FINDINGS: The lungs are clear. There are no pleural effusions. There is no pneumothorax. The heart is normal in size. The visualized osseous structures are within normal limits. RAD/Chest PA and Lateral IMPRESSION: No acute thoracic pathology. Electronically Signed: Atilio Lemon MD at 8:57 EST ,
--- NOTE | 2023-10-04 08:59 | EDS_ITS ---
HPI History of Present Illness Chief Complaint: Other, Pain/Inj Detail of Chief Complaint: Left-sided pleuritic chest pain Informant: patient Onset/Context/Timing Onset: Days and - (Patient is ill with upper respiratory symptoms started 3 weeks ago. She was seen 1 week after the onset at urgent care) Location: Upper respiratory infection with pleuritic chest pain on the left Current Severity: Mild Maximum Severity: Moderate Worsened by: Deep breathing Relieved by: Nothing Associated Symptoms Associated Symptoms: Negative for Parasthesias, Weakness, Loss of function, Inability to ambulate, Loss of consciousness or Amnesia Narrative Narrative: Patient is a 78-year-old woman who presents with pleuritic chest pain on the left side. 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 She had onset of her upper respiratory symptoms approximate 3 weeks ago. 1 week after onset she was seen at urgent care. She reports the cough is productive. She does not know the color since she swallows her sputum. Patient denies fever, chills night sweats. Patient does endorse rhinorrhea, congestion, postnasal drainage and sore throat. Patient denies headache, photophobia, neck pain or neck stiffness. Patient denies leg pain, swelling or discoloration. Patient denies abdominal pain, nausea, vomiting or diarrhea. She denies urologic symptoms. She does endorse dyspnea at rest and increased dyspnea with activity compared to her baseline. She states she is never smoked. She does not have history of lung problems. She does not have history of heart problems i.e. congestive heart failure. She does have history of hyperlipidemia and hypertension. There is a history of nephrolithiasis however her symptoms are not consistent with nephrolithiasis. Prior similar symptoms: No Recent Illness/Hospitalization: No PFSH [facility] Medical History Alcohol use Arthritis Femur fracture, left Fracture of both knees High cholesterol History of diverticulitis History of edema Hypertension Injury of back Kidney stones Leg fracture, right Mitral valve prolapse Nephrolithiasis Non-smoker Post-menopausal Pulmonary embolism Rheumatoid arteritis Ureterolithiasis Wears glasses Home Medications atorvastatin 10 mg tablet (Lipitor) 10 mg PO DAILY cholesterol 11/08/13 [History Last Taken 09/03/18 08:30] escitalopram oxalate 20 mg tablet (Lexapro) 20 mg PO DAILY depression 05/23/18 [History Last Taken 09/03/18] folic acid 1 mg tablet 2 mg PO SUMOTUWETHSA supplement 05/23/18 [History Last Taken 09/03/18] losartan 50 mg tablet (Cozaar) 100 mg PO DAILY bp 05/23/18 [History Last Taken 09/03/18 08:30] methotrexate sodium 2.5 mg tablet 10 mg PO FR arthritis 05/23/18 [History Last Taken 09/02/18] calcium carbonate 600 mg-vitamin D3 5 mcg (200 unit) tablet 2 tab PO DAILY 08/26/20 [History Last Taken Unknown] omega 6-jzh-zhl-fish oil 1,200 mg (144 mg-216 mg) capsule (Fish Oil) 1 cap PO DAILY 05/10/23 [History Last Taken Unknown] cephalexin 500 mg capsule 500 mg PO Q12 post-operative 3 days #6 CAPSULES 07/01/23 [Rx Last Taken Unknown] hydrocodone-acetaminophen 5-325mg 5mg-325mg 1 tab PO Q4H PRN PRN Pain 3 days #10 TABLETS 07/01/23 [Rx Last Taken Unknown] naproxen 500 mg tablet 500 mg PO BID #14 tabs 10/04/23 [Rx Last Taken Unknown] prednisone 20 mg tablet 60 mg (3 x 20 mg) PO DAILY #12 TABLETS 10/04/23 [Rx Last Taken Unknown] Allergy/AdvReac Type Severity Reaction Status Date / Time bee venom protein (honey bee) Allergy Anaphylaxis Verified 10/04/23 07:13 Sulfa (Sulfonamide Allergy Other Verified 10/04/23 07:13 Antibiotics) codeine AdvReac Nausea Verified 10/04/23 07:13 tramadol AdvReac Nausea Verified 10/04/23 07:13 Surgical History H/O bilateral hip replacements History of bilateral knee replacement Hx of colonoscopy Hx of cystoscopy Hx of cystoscopy Hx of parathyroidectomy Hx of tonsillectomy Social History (Updated 10/04/23 @ 09:[address] Reynaldo Buchanan MD) household members: spouse Smoking Status: Never smoker substance use type: does not use ROS ROS ED Constitutional Constitutional ED: Reports systems reviewed and no addt'l complaints, except as documented and body ache(s) Eyes Eyes: Reports none ENT ENT ED: Reports as per HPI Cardiovascular Cardiovascular: Reports as per HPI; Denies claudication, clubbing, cold extremities, diaphoresis, orthopnea or paroxysmal nocturnal dyspnea Respiratory/Chest Respiratory/Chest: Reports as per HPI, pain on inspiration and pain with cough; Denies orthopnea, pale skin or paroxysmal nocturnal dyspnea Gastrointestinal Gastrointestinal: Reports as per HPI Genitourinary Genitourinary ED: Reports as per HPI Musculoskeletal Musculoskeletal: Denies abnormal gait, arthralgias, back pain or numbness Integumentary Reports as per HPI Neurologic Neurologic: Reports none Psychiatric Psychiatric: Reports none Hematologic/Lymphatic Hematologic/Lymphatic: Denies anemia, easy bleeding or easy bruising EXAM Physical Exam Const Vital Signs: 10/04/23 07:13 10/04/23 07:21 10/04/23 08:06 Temperature 97.6 F L Temperature Source Temporal Pulse Rate 88 Respiratory Rate 16 Respiratory Pattern Normal Blood Pressure 135/72 H Blood Pressure Mean 93 Pulse Ox 97 Oxygen Delivery Method Room Air Room Air 10/04/23 07:59 10/04/23 08:42 Temperature Temperature Source Pulse Rate 94 107 H Respiratory Rate 20 H 17 Respiratory Pattern Normal Blood Pressure Blood Pressure Mean Pulse Ox 93 Oxygen Delivery Method Room Air Positive well nourished, well developed, obese and oriented x3 Constitutional Narrative: Patient appears slightly tachypneic. General Appearance ED: well developed Nutritional Appearance: obese HEENT Reports normocephalic, external ears normal, TM's clear, dry mucous membranes, oropharynx normal and dentition normal normocephalic Face and Sinus: Negative for cushingoid facies Nose: nares normal and no nasal polyps Tympanic Membrane ED: Yes TM's clear Mouth ED: Yes dry mucous membranes Mouth: dry mucous membranes Eyes PERRL, EOMs intact bilaterally, conjunctivae normal and no scleral icterus General Eye ED: Yes normal appearance of both eyes Neck full ROM, nuchal rigidity, no lymphadenopathy, supple, no meningeal signs, no JVD and no carotid bruits General: normal visual inspection, trachea midline and other There is no stridor. Lymph Lymphatic: no lymphadenopathy noted Chest Wall inspection of chest normal Resp normal respiratory effort, No normal air movement, no retractions, no use of accessory muscles and No clear to auscultation bilaterally Effort and Inspection: tachypneic and actively coughing; Negative for tracheal deviation Auscultation: crackles left lower, diminished lung sounds and egophony Cardio regular rate, regular rhythm, S1 normal heart sound, S2 normal heart sound, no murmurs, no rub and no gallops Palpation: normal PMI Peripheral Pulses: pulses 2+ throughout GI normal to inspection, nondistended, normoactive bowel sounds, soft to palpation, non-tender, non-distended and no masses; Negative for hepatosplenomegaly no CVA tenderness and external exam normal Back/Spine Cervical Spine: cervical ROM normal Extremity normal to inspection, full ROM, normal capillary refill, no joint enlargement, no clubbing, cyanosis or edema, no calf tenderness and no pedal edema Extremity Narrative: There is no asymmetry. There is no discoloration. There is no leg vein distention. There is no palpable cords or tenderness on the distribution deep venous system. Neuro oriented x3, CN's II-XII intact bilaterally and moves all extremities Plantar Reflex: Downgoing: bilateral Psych mental status grossly normal and thought process normal Activity / Motor Behavior: appropriate eye contact Speech: normal speech Thought Process: normal thought process Thought Content: normal thought content Skin no rashes or lesions noted, no wounds, skin turgor normal, no jaundice, no petechiae and no mottling General Skin Exam: no breakdown Lesions: no lesions Rashes: no rashes MDM MDM MDM Narrative Medical decision making narrative: Clinically patient has pneumonia. Since she does have wheezing left greater than right will treat with albuterol and prednisone. Differential diagnosis would include pneumonia, pulmonary embolus since she has a history of VTE, pleurisy due to recent viral upper respiratory infection. Workup included chest x-ray, blood work, albuterol and prednisone. History & Record Review Additional record(s) reviewed:: Prior labs Lab Data Attestation: I reviewed the patient's lab results. Lab results narrative: White count and differential are normal. H&H is normal with increased MCV. Labs: Laboratory Results - last 24 hr 10/04/23 08:00 WBC 8.1 RBC 3.91 L Hgb 12.8 Hct 39.6 MCV 101.3 H MCH 32.7 H MCHC 32.3 RDW Std Deviation 49.2 H RDW Coeff of Edward 13.4 Plt Count 208 MPV 10.2 Immature Gran % (Auto) 0.400 Neut % (Auto) 69.0 Lymph % (Auto) 20.0 [place] % (Auto) 6.9 Eos % (Auto) 3.0 Baso % (Auto) 0.7 Absolute Neuts (auto) 5.6 Absolute Lymphs (auto) 1.61 Nucleated RBC % 0 Sodium 139 Potassium 3.9 Chloride 108 H Carbon Dioxide 27.0 Anion Gap 4 L BUN 14 Creatinine 0.91 Estim Creat Clear Calc 46.59 Est GFR (MDRD) Af Amer 78 Est GFR (MDRD) Non-Af 64 BUN/Creatinine Ratio 15.4 Glucose 109 H Calcium 9.9 Radiography Chest X-Ray - ED: 2 View and Read by ED Physician (Mild chronic changes with discoid atelectasis left lower lobe. Cardiac silhouette and size is normal. Perihilar regions normal. [place] structures unremarkable.) Diagnostic Testing: Clinical Impression(s) from Imaging Studies Chest X-Ray 10/04/23 08:43 IMPRESSION: No acute thoracic pathology. Electronically Signed: Atilio Lemon MD at 8:57 EST , Chest CTA 10/04/23 09:01 IMPRESSION: No pulmonary embolus. No thoracic aortic aneurysm or dissection. No pulmonary infiltrates or pleural effusions. Bibasilar atelectasis. Electronically Signed: Atilio Lemon MD at 9:41 EST , CT was reviewed. There is no evidence of infiltrate or pulmonary mass per my read. Awaiting formal read by radiologist. Treatment and Re-Evaluation Narrative: With no abnormality noted on the left side and prior history of provoked DVT/PE will obtain CTA to evaluate for pulmonary embolus. Since there is no evidence of pneumonia or PE will treat with NSAIDs for pleurisy. Also will treat with albuterol MDI and prednisone since she is wheezing. Since patient is still wheezing with forced expiration the time of reevaluation patient was given prescription for prednisone. Discharge Plan Triage Chief Complaint: Other, Pain/Inj ED Provider: Buchanan,Reynaldo Dx/Rx/DC Orders Clinical Impression: Pleuritic chest pain, Acute bronchospasm, Acute pleurisy without pleural effusion, Bronchitis Instructions: ED Bronchitis, No Antibiotic (Adult), ED Pleurisy Prescriptions: New prednisone 20 mg tablet 60 mg PO DAILY Qty: 12 0RF naproxen 500 mg tablet 500 mg PO BID Qty: 14 0RF No Action atorvastatin [Lipitor] 10 MG tablet 10 mg PO DAILY Patient Comments: doris cholesterol folic acid 1 MG tablet 2 mg PO SUMOTUWETHSA escitalopram oxalate [Lexapro] 20 MG tablet 20 mg PO DAILY losartan [Cozaar] 50 MG tablet 100 mg PO DAILY Patient Comments: methotrexate sodium 2.5 MG tablet 10 mg PO FR Patient Comments: 6 (2.5 MG) TABLETS EVERY WEDNESDAY. Rx Instructions: take weekly on Wednesday calcium carbonate-vitamin D3 1 EACH tablet 2 tab PO DAILY omega 1-emi-aue-fish oil [Fish Oil] 1,200 (144-216) mg capsule 1 cap PO DAILY cephalexin [cephalexin] 500 mg capsule 500 mg PO Q12 3 Days Qty: 6 0RF hydrocodone-acetaminophen [hydrocodone-acetaminophen] 5-325 mg tablet 1 tab PO Q4H PRN PRN (Reason: Pain) 3 Days Qty: 10 0RF Primary Care Provider: Kameron Huerta Referrals: Kameron Huerta MD [Primary Care Provider] - 3-5 Days if not improving Activity Restrictions/Additional Instructions: 1. Use your inhaler every 2-4 hours for the next 3 days 2. Take prednisone until gone 3. Take Naprosyn for your pleuritic chest pain 4. If you have no improvement in 5 to 7 days follow-up with your doctor Disposition Disposition: Home, Self Care
--- NOTE | 2023-10-04 09:01 | CT_ITS ---
STUDY: CTA CHEST WITH CONTRAST REASON FOR EXAM: Female, 78 years old. Pleuritic chest pain RADIATION DOSAGE (If Supplied By Facility): CTDIvol = ( 11.01 ) mGy, DLP = ( 449.39 ) mGycm TECHNIQUE: Transaxial imaging was performed following intravenous administration of 100 ml of Isovue-370 contrast material. Coronal and sagittal reformatted images were created. 3D post processed images were created. Individualized dose optimization techniques were used for this CT. COMPARISON: Prior study dated: 05/23/2018 FINDINGS: LUNGS: There are no pulmonary infiltrates. There is atelectasis at the lung bases. PLEURAL SPACE: There are no pleural effusions. There is no pneumothorax. MEDIASTINUM: The heart and pericardium are within normal limits. There is no pneumomediastinum. There is no thoracic lymphadenopathy. VESSELS There is no pulmonary embolus. The pulmonary artery is normal in caliber. There is no thoracic aortic aneurysm or dissection. UPPER ABDOMEN: There are simple cysts noted in the liver. BONES: There are no destructive osseous lesions. SOFT TISSUES: The visualized soft tissues are unremarkable. CT/CTA Chest W/WO Contrast IMPRESSION: No pulmonary embolus. No thoracic aortic aneurysm or dissection. No pulmonary infiltrates or pleural effusions. Bibasilar atelectasis. Electronically Signed: Atilio Lemon MD at 9:41 EST ,
[2023-10-04 09:10] LABS: Anion Gap 4 (5-15); BUN 14 mg/dL (7-18); BUN/Creat Ratio 15.4 RATIO (10-20); Calcium,Total 9.9 mg/dL (8.5-10.1); Chloride 108 mmol/L (98-107); Creatinine, Serum 0.91 mg/dL (0.55-1.02); Estimated Creatinine Clearance 46.59 ml/min; Glucose 109 mg/dL (74-106); Potassium 3.9 mmol/L (3.5-5.1); Sodium Level 139 mmol/L (136-145)
[2023-10-04 11:02] LABS: Lactic Acid 1.1 mmol/L (0.4-1.9)
[2023-10-04 13:09] LABS: EST Glomerular Filtration Rate 64 mL/min (>60); Est Glom Filt Rate - Afr Amer 77 mL/min (>60)
== END 2023-10-04 10:27 | disposition home or self-care (01) ==
PROVIDERS: Emergency Provider Emergency Medicine; PCP Family Medicine; Visit Provider Emergency Medicine
DX: R07.89 Other chest pain (principal); I11.0 Hypertensive heart disease with heart failure; I50.9 Heart failure, unspecified; J18.9 Pneumonia, unspecified organism; E78.00 Pure hypercholesterolemia, unspecified; J98.01 Acute bronchospasm
CPT/HCPCS: 71046; 71275; 80048; 83605; 85025; 87428; 93005; 94640; 96374; 99283; Q9967; A4216

== ENCOUNTER → 2024-07-27 | Outpatient (CLI) | payer MEDICARE, SELFPAY ==
--- NOTE | 2024-07-27 10:17 | RAD_ITS ---
INDICATION: KIDNEY STONES EXAMINATION/TECHNIQUE: X-RAY - XR Abdomen 1 View COMPARISON: None FINDINGS: BOWEL GAS PATTERN: Non-obstructive. Large amount retained stool in the colon. FREE AIR: Not assessed on a single supine view. ORGANOMEGALY: Not seen. CALCIFICATIONS: No abnormal calcifications observed. LOWER CHEST: No acute pathology. BONES AND SOFT TISSUES: Degenerative changes of the spine. Bilateral total hip arthroplasties. RAD/Abdomen Single View IMPRESSION: No renal stones visualized. Electronically Signed: Nilesh Negron MD at 21:46 EDT ,
== END | disposition home or self-care (01) ==
PROVIDERS: PCP Family Medicine; Referring Provider Urology; Visit Provider Urology
DX: N20.0 Calculus of kidney (principal)
CPT/HCPCS: 74018